=== PATIENT | female | born 1960 | race Caucasian/White ===

== ENCOUNTER 2016-08-24 05:20 | Inpatient (IN) | payer MEDICAID, OTHER ==
[~2016-08-24] VITALS: Ht 152.4 cm; Wt 64.2 kg
[~2016-08-24 05:20] MED LIST: ACET500L PO; ASPI81TA85 PO; CIPR250T3 PO; EXCETAB80 PO; HYDR-2809 PO; PARO20TA2 PO; PYRI200T5 PO; TOPA25TA10 PO; XANA0.25 PO
[2016-08-24] MEDS ORDERED: KETOROLAC 30 MG/ML VIAL (J1885) As Ordered ONE (06:42)
[2016-08-24 07:15] LABS: BASO % 0.3 % (0.0-1.0); EOS % 0.1 % (0.0-3.0); LARGE UNSTAINED CELL # 0.1 K/mm3 (0.0-0.4); LYMPH # 0.4 K/mm3 (1.5-4.5); LYMPH % 4.9 % (24.0-44.0); MEAN CORPUSCULAR HEMOGLOBIN 30.4 pg (27.0-33.0); MEAN CORPUSCULAR HGB CONC 32.4 g/dl (32.0-36.5); MEAN CORPUSCULAR VOLUME 94.1 fl (80.0-96.0); MONO # 0.5 K/mm3 (0.0-0.8); MONO % 7.1 % (0.0-5.0); NEUTROPHILS # 6.4 K/mm3 (1.8-7.7); NEUTROPHILS % 86.5 % (36.0-66.0); PLATELET COUNT, AUTOMATED 174 k/mm3 (150-450); RED CELL DISTRIBUTION WIDTH 12.6 % (11.5-14.5); WHITE BLOOD COUNT 7.4 K/mm3 (4.0-10.0)
[2016-08-24 07:26] LABS: ALBUMIN 3.5 GM/DL (3.2-5.2); ALBUMIN/GLOBULIN RATIO 1.17 (1.00-1.93); ALKALINE PHOSPHATASE 47 U/L (45-117); ALT/SGPT 26 U/L (12-78); ANION GAP 6 MEQ/L (8-16); AST/SGOT 16 U/L (15-37); BILIRUBIN,DIRECT 0.1 MG/DL (0.0-0.2); BILIRUBIN,TOTAL 0.4 MG/DL (0.2-1.0); BLOOD UREA NITROGEN 13 MG/DL (7-18); CARBON DIOXIDE LEVEL 26 MEQ/L (21-32); CHLORIDE LEVEL 108 MEQ/L (98-107); CREATININE FOR GFR 0.71 MG/DL (0.55-1.02); GLOMERULAR FILTRATION RATE > 60.0 (>51); GLUCOSE, FASTING 112 MG/DL (70-105); POTASSIUM SERUM 4.4 MEQ/L (3.5-5.1); SODIUM LEVEL 140 MEQ/L (136-145); TOTAL PROTEIN 6.5 GM/DL (6.4-8.2)
--- NOTE | 2016-08-24 08:21 | REP ---
PA and lateral chest: Comparisons 10/12/2015. The lung truong are clear. The cardiac size is normal The agnes, mediastinum, and bony thorax are unremarkable. Impression: Negative PA and lateral chest. There is no interval change. Signed by Remberto Benavides MD 08/24/2016 08:13 A
[2016-08-24] MEDS ORDERED: TOPIRAMATE (TopAMAX) 25 MG TAB PO SCH (09:00)
[2016-08-24] MEDS ORDERED: ONDANSETRON 4MG/2ML VIAL (J2405) IV PRN (09:45)
[2016-08-24] MEDS ORDERED: TYLE325T5 PO (09:58)
[2016-08-24] MEDS ORDERED: ACETAMINOPHEN 325 MG TAB As Ordered ONE (10:50)
[2016-08-24] MEDS ORDERED: ALPRAZolam 0.25 MG TAB PO PRN (11:00)
[2016-08-24] MEDS ORDERED: EXCEDRIN MIGRAINE TABLET PO PRN (11:00)
[2016-08-24 11:06] VITALS: BP 99/52
--- NOTE | 2016-08-24 11:41 | REP ---
CT Head without contrast HISTORY: Syncope COMPARISON: MR 04/19/2016 The patient is status post suboccipital craniectomy for cerebellar tonsillar ectopia. There is no intraparenchymal hemorrhage, acute infarct, mass or midline shift. The ventricular system is normal in appearance. There is no extra cerebral collection. There is no fracture. The visualized sinuses are clear. IMPRESSION: There is no intracranial lesion. Signed by Suhail Worthy MD 08/24/2016 11:33 A
--- NOTE | 2016-08-24 12:46 | HPE ---
DATE OF ADMISSION: 08/24/2016 PRIMARY CARE PROVIDER: Chris Rivers PA-C CHIEF COMPLAINT: Generalized weakness and passed out. HISTORY OF PRESENTING ILLNESS: A 56-year-old female with a history of Chiari malformation with Chiari decompression, transient ischemic attack (TIA), depression, patent foramen ovale, migraine headaches, tonsillectomy, tubal ligation. Was in her usual state of health until a week ago when she developed upper respiratory tract infection with cough, which is nonproductive. No fever or chills. The patient woke up at 4 o'clock this morning, wanted to go to the bathroom, and felt like her arms and legs were very weak, unable to stand up on her own. She leaned to the side of the bed and felt that she had no strength, unable to stand. When she returned, she had to crawl on her hands and feet. Her saw her. She felt warm. Complained of diaphoresis without chest pain, pressure, tightness, palpitations, or lightheadedness. No headaches, changes in vision aside from the chronic light sensitivity. The patient called emergency medical services (EMS). When EMS arrived, they asked them to go and get a chair from the other room. She was placed, was asked to sit up with assistance. Fingerstick was 141. Systolic pressure was over 100. At the time, she then felt woozy and passed out for about 2-3 minutes, according to the . EMS then called him back to the room, where he had a chair. They lifted her up onto a bed. She was able to recognize him. Did not appear to have any tonic-clonic movements or postictal confusion. Was able to recognize the house, her , and EMS that had lifted her to the stretcher. The patient has been suffering from upper respiratory infection with postnasal drip last week and had a cough yesterday. She had taken some Sudafed and nothing else. She had a similar episode of feeling very weak last summer when she got up in the morning and when she was in camp, which resolved without seeing a healthcare professional. The patient has been under the care of Dr. Jose Alfredo Ceballos, [place], [place], , for her Chiari malformation and had recently seen him about 2-3 weeks ago. She has chronic dysphagia to liquids but has not been dehydrated. Drinks about 7-8 cups of liquids daily. Denies any diarrhea. She has had a malodorous urine about 2 weeks ago but denies dysuria, urgency, frequency, fever, chills, or flank pain. She has had chronic photophobia. Other systems have been negative. PAST MEDICAL HISTORY: TIA. Chiari malformation. Depression. Migraine headaches. Patent foramen ovale (PFO). ALLERGIES: To SULFA causing rash. HOME MEDICATIONS: - aspirin 81 daily - paroxetine 20 daily - Topamax 25 twice a day - Xanax 0.25 three times a day - fiber capsules, two capsules twice a day PAST SURGICAL HISTORY: Chiari decompression. Tonsillectomy. Tubal ligation. SOCIAL HISTORY: Never smoked cigarettes. No alcohol use currently. On disability for Budd-Chiari syndrome. Mother and father are . Mother age 45. Father age 72. Mother with kidney cancer. Father with sinus cancer. REVIEW OF SYSTEMS: 12-point system obtained, all of which are negative aside from positive findings on history of present illness (HPI). PHYSICAL EXAMINATION: Blood pressure 97/47, pulse 84, respiratory rate 18, temperature 97.9, pulse oximetry 98% on room air, weight 58.97 kg, 5 feet 0 inches tall. Generally, awake, alert, oriented times three. Answering questions appropriately. She is wearing sunglasses and states that she has photosensitivity. Pupils are round and reactive to light and accommodation. Extraocular muscles are intact. Head normocephalic, atraumatic. Lungs are clear to auscultation. No wheezing, rales, or rhonchi. Heart: S1, S2, sinus rhythm. Abdomen: Is soft, nontender, nondistended. Positive bowel sounds. Extremities: No cyanosis, clubbing, or pitting edema. Neurologically, the patient is awake, alert, oriented times three, answering questions appropriately. Face is symmetric. Tongue is midline. No facial asymmetry. The patient is fluent. No pronator drift. Motor function is 5/5 times four extremities. Gait was not tested. Negative Babinski bilaterally. Electrocardiogram (EKG): Sinus rhythm, ventricular rate of 72, nonspecific T wave changes with T wave flattening in the lateral leads. Influenza A and B are negative. White count 7.4, hemoglobin 13, hematocrit 41, platelet count 174, 86% neutrophils. Sodium 140, potassium 4.4, chloride 108, bicarbonate 26, chloride 108, BUN 13, creatinine 0.71, glucose of 112, AST 16, ALT 26, alkaline phosphatase 47, total bilirubin 0.4, direct bilirubin 0.1, total protein 6.5, albumin 3.5, total CPK 57. Cloudy urine, yellow in color, pH of 7, negative protein, glucose, ketones, bilirubin, nitrites, negative leukocyte esterase, 3 WBCs, 1+ bacteria. Total CK 58, MB fraction of 1, relative index 1.72, troponin less than 0.02. Chest x-ray: No interval change. Negative PA and lateral chest. ASSESSMENT AND PLAN: This is a 56-year-old female with history of Chiari malformation, status post decompression, presents with generalized weakness and syncopal episodes at home, recent diagnosis of PFO managed by Dr. Brooks with recommendations for a closure by Dr. Reyes. The patient has refused. CURRENT ISSUES: 1. Syncope and collapse with bilateral upper and lower extremity weakness. The patient will be admitted for neuro checks every 4 hours. Neurology consult. MRI MRA of the brain and cervical spine and check orthostatics and monitor neurologically Continue with aspirin. Rule out cerebrovascular accident (CVA), hydrocephalus. Neurology consult Dr. Jack, and inpatient electroencephalogram. 2. Chiari malformation, status post Chiari decompression. The patient's neurologist is Jose Alfredo Ceballos, , in [place], [place]. Will inform him of the patient's admission. Neurology consult today. Physician balloon tester is Dr. Jack. 3. Patent foramen ovale with two prior TIAs. Continue with aspirin. Obtain 2D echocardiogram report from Dr. Brooks's office. Obtain records from Dr. Ceballos's office regarding hypercoagulable workup from 2 previous TIAs 4. Depression. Continue home medications. 5. Chronic migraines and photosensitivity, most likely related to Chiari malformation. Defer to neurology. 6. Deep venous thrombosis (DVT) prophylaxis. Compression stockings. On Lovenox or heparin. 7. Recent history of URI. check viral screen 8. Cloudy urine. check urinalysis and urine c&s. DVT prophylaxis w sq heparin. code status: FULL code no health care proxy. MTDD
--- NOTE | 2016-08-24 13:54 | REP ---
MR angiography the brain without contrast: History: Syncope. Status post prior Chiari decompression surgery 2003. Comparison MR angiography of the brain is from April 19, 2016. Technique: 3-D [id number] MR angiography of the brain is acquired in the usual fashion and maximal intensity projection images were generated in rotational format about the vertical and horizontal axes. In addition, source axial T1-weighted images are viewed in cine mode. MR angiographic findings: The distal vertebral arteries are patent and co-dominant. Basilar artery is a little tortuous but widely patent. The posterior cerebral and superior cerebellar vessels are normal and symmetric. The distal internal carotid arteries are unremarkable. Anterior and middle cerebral arteries appear intact. There is no visible marroquin aneurysm or arteriovenous malformation. Impression: Unremarkable MR angiography the brain. Signed by Uriah Parker MD 08/24/2016 01:45 P
--- NOTE | 2016-08-24 14:06 | EDDOCDS ---
Physician Documentation [facility] Name: Jenna Macias Age: 56 yrs Sex: Female : 1960 Arrival Date: 08/24/2016 Time: 05:20 Bed 4 Private MD: Chris Rivers R. Disposition: 08/24/16 09:34 Hospitalization ordered by Krystle Rodriguez for Inpatient Admission. Preliminary diagnosis is Syncope and collapse. - Bed requested for PCU. - Status is Inpatient Admission. ead - Condition is Stable. - Problem is new. - Symptoms are resolved. Historical: - Allergies: SULFA (SULFONAMIDES) (Rash); - Home Meds: 1. aspirin 81 mg Oral TbEC 1 tab once daily (Last dose: 08/23/2016) 2. paroxetine HCl 20 mg Oral tab 1 tab once daily (Last dose: 08/23/2016) 3. Topamax 25 mg Oral tab 1 tabs 2 times per day (Last dose: 08/23/2016) 4. Xanax 0.25 mg Oral tab 3 times per day (Last dose: Unknown) - PMHx: TIA; Chiari Malformation; Depression; Migraine Headaches; Patent foramen ovale; - PSHx: Chiari decompression; Tonsillectomy; Tubal ligation; - Social history: Smoking status: Patient states was never smoker of tobacco. Patient uses alcohol occasionally. No barriers to communication noted, The patient speaks fluent Ukrainian. - Family history: Mother has/had diabetes mellitus, Father has/had cancer, Daughter has/had seizure. - : The pt / caregiver states he / she is on anticoagulants: Home medication list is obtained from the patient. - Exposure Risk Screening:: None identified. 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 0 in. (152.40 cm) (R); Pain 0/10; 05:39 BP 97 / 44 (auto/); mv5 05:39 Pulse 74 MON; Pulse Ox 98% ; mv5 05:54 BP 94 / 50 (auto/); mv5 05:54 Pulse 74 MON; Pulse Ox 98% ; mv5 06:09 BP 89 / 54 (auto/); mv5 06:09 Pulse 72 MON; Pulse Ox 98% ; mv5 06:24 BP 83 / 54 (auto/); mv5 06:24 Pulse 78 MON; Pulse Ox 98% ; mv5 06:39 BP 92 / 53 (auto/); mv5 06:39 Pulse 74 MON; Pulse Ox 99% ; mv5 07:09 BP 99 / 58 (auto/); ead 07:09 Pulse 72 MON; Resp 16; Pulse Ox 98% on R/A; ead 07:24 BP 95 / 50 (auto/); ead 07:24 Pulse 72 MON; Pulse Ox 98% ; ead 07:54 BP 97 / 53 (auto/); ead 07:54 Pulse 72 MON; Pulse Ox 97% ; ead 08:07 Pulse 72 MON; Resp 16; Pulse Ox 97% on R/A; ead 08:09 BP 91 / 53 (auto/); ead 08:24 BP 94 / 53 (auto/); ead 08:24 Pulse 76 MON; Pulse Ox 96% on R/A; ead 08:39 Pulse 74 MON; Pulse Ox 95% ; ead 08:39 BP 95 / 51 (auto/); ead 08:54 BP 99 / 58 (auto/); ead 08:54 Pulse 72 MON; Pulse Ox 97% ; ead 09:09 BP 94 / 53 (auto/); ead 09:09 Pulse 78 MON; Pulse Ox 96% ; ead 09:24 BP 89 / 51 (auto/); ead 09:24 Pulse 74 MON; Pulse Ox 95% ; ead 09:39 BP 93 / 50 (auto/); ead 09:39 Pulse 76 MON; Pulse Ox 96% ; ead 09:54 BP 92 / 55 (auto/); ead 09:54 Pulse 78 MON; Pulse Ox 96% ; ead 10:24 BP 104 / 53 (auto/); ead 10:24 Pulse 82 MON; Pulse Ox 96% ; ead 10:39 BP 100 / 49; Pulse 76 MON; Resp 16; Temp 97.9; Pulse Ox 95% on R/A; ead 10:39 BP 100 / 49 (auto/); ead 10:40 Pulse 78 MON; Pulse Ox 96% ; ead 10:54 BP 99 / 52 (auto/); ead 10:54 Pulse 74 MON; Resp 16; Pulse Ox 96% on R/A; ead 13:56 BP 90 / 53; Pulse 69; Resp 18; Temp 98.3(T); Pulse Ox 98% on R/A; ad 05:26 Body Mass Index 25.39 (58.97 kg, 152.40 cm) jovi MDM: 06:37 IV Saline Lock ordered. cs11 06:37 NS 0.9% 1000 ml IV at bolus once ordered. cs11 06:37 ketorolac 30 mg IVP once ordered. cs11 06:38 Chest, 2 View (pa\E\lat) Ordered. EDMS 06:38 CBC with Diff Ordered. EDMS 06:38 MED Profile Ordered. EDMS 06:38 Liver Profile Ordered. EDMS 06:38 Creatine Phosphokinase Ordered. EDMS 06:38 Urinalysis Ordered. EDMS 06:38 -Influenza A&B Rapid Antigen - Nose Ordered. EDMS 06:38 Urine Culture Ordered. EDMS 07:07 Financial registration complete. pm4 07:35 CBC with Diff Reviewed. sd1 07:35 MED Profile Reviewed. sd1 07:35 -Influenza A&B Rapid Antigen - Nose Reviewed. sd1 07:35 Liver Profile Reviewed. sd1 07:35 Creatine Phosphokinase Reviewed. sd1 07:35 Fluid Challenge ordered. sd1 07:40 REGULAR+DIET ordered. EDMS 08:14 Urinalysis Reviewed. sd1 08:32 CIP Ordered. EDMS 08:32 Troponin Ordered. EDMS 08:32 ECG WITH READING ER PHYS+CARDIAG ordered. EDMS 09:02 CIP Reviewed. sd1 09:02 Troponin Reviewed. sd1 09:02 Chest, 2 View (pa\E\lat) Reviewed. sd1 09:30 BED REQUEST+ADM ordered. EDMS 09:39 CARDIAC MARKER PANEL Ordered. EDMS 09:39 CARDIAC MARKER PANEL Ordered. EDMS 09:39 URINALYSIS Ordered. EDMS 09:39 URINE CULTURE Ordered. EDMS 09:41 Admission / Observation Status ordered. EDMS 09:41 ECHOCARD,DOPPLER/COLOR FLOW ordered. EDMS 09:41 ELECTROCARDIOGRAM ADULT ordered. EDMS 09:41 ELECTROCARDIOGRAM ADULT ordered. EDMS 09:41 NO ADDED SALT DIET ordered. EDMS 10:20 [facility] [facility] [place] was scanned into [employer] and attached to record. mm15 10:49 Acetaminophen Tablet 650 mg PO once; Admission order by Dr. Rodriguez ordered. ead 10:51 CT Head without contrast Ordered. EDMS 11:41 MRA BRAIN W/O CONTRAST Ordered. EDMS 11:41 MRI Brain W/O FOLL BY WITH Ordered. EDMS 11:41 MRI-C SPINE W/O FOLL BY WITH Ordered. EDMS Administered Medications: 06:53 Drug: NS 0.9% 1000 ml [sodium chloride 0.9 % intravenous solution] Route: IV; Rate: mv5 bolus; Site: left hand; 06:53 Drug: ketorolac 30 mg [ketorolac 30 mg/mL (1 mL) injection solution (1 mL)] Route: IVP; mv5 Site: left hand; 10:51 Drug: Acetaminophen 650 mg [acetaminophen 325 mg tablet (2 tabs)] Route: PO; ead Signatures: Dispatcher [employer] EDMS Aubrie Lr MD MD sd1 Vidya Edouard, RN RN Juan John DO DO cs11 Astrid Quan mm15 Tracey Nguyen RN RN Gela Cisneros RN RN lmg Oscar Fisher, Reg Reg pm4 Deedee Marti,RN RN mv5 The chart was reviewed and I authenticate all verbal orders and agree with the evaluation and treatment provided.Corrections: (The following items were deleted from the chart) 11:40 10:50 MRA BRAIN WITH CONTRAST ordered. EDMS EDMS 11:41 11:22 MRI Spine, Cervical with con ordered. EDMS EDMS 11:42 09:39 MRI Brain W/CON ordered. EDMS EDMS Attachments: 10:20 [facility] Payment Agreement mm15 MTDD
--- NOTE | 2016-08-24 14:06 | EDDOCDS ---
Nurse's Notes [facility] Name: Jenna Mcaias Age: 56 yrs Sex: Female : 1960 Arrival Date: 08/24/2016 Time: 05:20 Bed 4 Private MD: Chris Rivers R. Diagnosis: Syncope and collapse Presentation: 08/24 05:23 Presenting complaint: EMS states: Pt to ED by EMS for evaluation after syncopal episode mv5 in presence of EMS. FSBG 141 mg/dL by EMS, given small NS bolus VIDEO TAPE DUPLICATOR. Pt reports URI symptoms last week, denies N/V/D. Took Sudafed for sinus congestion last evening. Adult Sepsis Screening: The patient does not have new or worsening altered mentation. Patient's respiratory rate is less than 22. Systolic blood pressure is greater than 100. Patient has a qSOFA score of 0- Negative Sepsis Screen. Suicide/Homicide risk assessment- the patient denies having any suicidal and/or homicidal ideations and does not present with any other emotional, behavioral or mental health complaints. Status: Patient is not a it service technician or dependent. Transition of care: patient was not received from another setting of care. Care prior to arrival: Medications administered prior to arrival: NS 250 ml bolus. IV initiated. Glucose check. 141. 05:23 Acuity: KODY Level 3 mv5 05:23 Method Of Arrival: Ambulance mv5 Triage Assessment: 05:32 General: Appears uncomfortable, well nourished, Behavior is appropriate for age, mv5 cooperative, pleasant. Pain: Denies pain. Pt Declines HIV testing. The patient is triaged at the bedside. See Assessment in Nurses Notes section of ED record. Neurological: Level of Consciousness is awake, alert, Oriented to person, place, time. Cardiovascular: Capillary refill < 3 seconds Heart tones S1 S2 present Pulses are all present. Rhythm is sinus rhythm No ectopy. Chest pain is denied. Respiratory: Airway is patent Respiratory effort is even, Respiratory pattern is regular, symmetrical, Breath sounds are clear bilaterally. GI: Abdomen is flat, Bowel sounds present X 4 quads. Abd is soft. Derm: Skin is clammy, Skin is pink, Skin temperature is warm. WIRE COATER: 05:32 LMP N/A - Post-menopause mv5 Historical: - Allergies: SULFA (SULFONAMIDES) (Rash); - Home Meds: 1. aspirin 81 mg Oral TbEC 1 tab once daily (Last dose: 08/23/2016) 2. paroxetine HCl 20 mg Oral tab 1 tab once daily (Last dose: 08/23/2016) 3. Topamax 25 mg Oral tab 1 tabs 2 times per day (Last dose: 08/23/2016) 4. Xanax 0.25 mg Oral tab 3 times per day (Last dose: Unknown) - PMHx: TIA; Chiari Malformation; Depression; Migraine Headaches; Patent foramen ovale; - PSHx: Chiari decompression; Tonsillectomy; Tubal ligation; - Social history: Smoking status: Patient states was never smoker of tobacco. Patient uses alcohol occasionally. No barriers to communication noted, The patient speaks fluent Greenlandic. - Family history: Mother has/had diabetes mellitus, Father has/had cancer, Daughter has/had seizure. - : The pt / caregiver states he / she is on anticoagulants: Home medication list is obtained from the patient. - Exposure Risk Screening:: None identified. Screenin:36 Screening information is obtained from the patient. Fall risk: No risks identified. mv5 Assistance ADL's: requires no assistance with activities of daily living. Abuse/DV Screen: The patient / caregiver reports he/she is: not in a situation that causes fear, pain or injury. Nutritional screening: No deficits noted. Advance Directives: There is no active DNR order. home support is adequate. Assessment: 05:36 General: See triage assessment.. Neurological: Level of Consciousness is awake, alert, mv5 Oriented to person, place, time. Cardiovascular: Capillary refill < 3 seconds Heart tones S1 S2 present Pulses are all present. Rhythm is sinus rhythm No ectopy. 06:44 General: Appears in no apparent distress, MD in to evaluate pt.. Neurological: Level of mv5 Consciousness is awake, alert, Oriented to person, place, time. Cardiovascular: Rhythm is sinus rhythm No ectopy. Derm: Skin is pink, warm & dry. 07:13 General: Appears in no apparent distress, pt wearing sunglasses's and covering face ead with blanket. pt reports the light bothers her. curtains drawn and lights are off. family is at bedside. pt denies need to void for UA at this time. call blel within reach. . Cardiovascular: Rhythm is sinus rhythm No ectopy. Respiratory: Airway is patent Respiratory effort is even, unlabored. Derm: Skin is pink, warm & dry. 07:49 General: pt ambulated to bathroom for UA without difficulty. returned to room and will ead continue to monitor. . Respiratory: Respiratory effort is even, unlabored. Derm: Skin is pink, warm & dry. 08:34 Adult Sepsis Screening: The patient does not have new or worsening altered mentation. ead Patient's respiratory rate is less than 22. Systolic blood pressure is greater than 100. Patient has a qSOFA score of 0- Negative Sepsis Screen. General: Appears in no apparent distress, comfortable, Behavior is appropriate for age, cooperative. Neurological: Level of Consciousness is awake, alert, obeys commands, Oriented to person, place, time, pt continues to keep sunglasses' on and lights off. maintains at bedside. . Cardiovascular: Rhythm is sinus rhythm. Respiratory: Respiratory effort is even, unlabored. 09:49 General: Appears in no apparent distress, to be sleeping. Cardiovascular: Rhythm is ead sinus rhythm No ectopy. Respiratory: No deficits noted. 10:11 General: Dr. Rodriguez at bedside to assess pt. . Cardiovascular: Rhythm is sinus ead rhythm. Respiratory: Airway is patent Respiratory effort is even, unlabored. Derm: Skin is pink, warm & dry. 10:53 General: pt informed admission nurse of headache of 10/25. pt medicated with Tylenol as ead ordered by Dr. Rodriguez with written order. pt updated of admission plan and bed status. room 3221 currently not clean. will take pt to floor upon room being ready for pt. . 10:58 General: SBAR faxed and tubed to PCU. ead 11:40 General: Appears in no apparent distress, comfortable, Behavior is appropriate for age, ead cooperative, PCU confirms SBAR is received, states room 3221 currently not cleaned. Requesting pt to go to MRI prior to coming to floor. This nurse spoke with MRI and they report unsure of what time pt will be called but to keep pt in ER. Pt provided with screening tool for MRI and updated on current plan. . Cardiovascular: Rhythm is sinus rhythm No ectopy. Respiratory: Airway is patent Respiratory effort is even, unlabored. Derm: Skin is pink, warm & dry. 12:04 General: MRI ready for pt. Pt to MRI via stretcher per ED CONSTRUCTION TECHNOLOGY INSTRUCTOR. . ead 13:03 General: pt still in MRI. will move pt to PCU when pt is returned.. ead 13:44 General: pt returned from MRI. ead 13:53 General: Appears in no apparent distress, comfortable, Behavior is appropriate for age, ead cooperative. Neurological: Level of Consciousness is awake, alert, obeys commands, Oriented to person, place, time. Cardiovascular: Rhythm is sinus rhythm. Respiratory: Airway is patent Respiratory effort is even, unlabored. Derm: Skin is pink, warm & dry. Vital Signs: 05:26 BP 97 / 47; Pulse 84; Resp 18; Temp 97.9(TE); Weight 58.97 kg (R); Height 5 ft. 0 in. jovi (152.40 cm) (R); Pain 0/10; 05:39 BP 97 / 44 (auto/); mv5 05:39 Pulse 74 MON; Pulse Ox 98% ; mv5 05:54 BP 94 / 50 (auto/); mv5 05:54 Pulse 74 MON; Pulse Ox 98% ; mv5 06:09 BP 89 / 54 (auto/); mv5 06:09 Pulse 72 MON; Pulse Ox 98% ; mv5 06:24 BP 83 / 54 (auto/); mv5 06:24 Pulse 78 MON; Pulse Ox 98% ; mv5 06:39 BP 92 / 53 (auto/); mv5 06:39 Pulse 74 MON; Pulse Ox 99% ; mv5 07:09 BP 99 / 58 (auto/); ead 07:09 Pulse 72 MON; Resp 16; Pulse Ox 98% on R/A; ead 07:24 BP 95 / 50 (auto/); ead 07:24 Pulse 72 MON; Pulse Ox 98% ; ead 07:54 BP 97 / 53 (auto/); ead 07:54 Pulse 72 MON; Pulse Ox 97% ; ead 08:07 Pulse 72 MON; Resp 16; Pulse Ox 97% on R/A; ead 08:09 BP 91 / 53 (auto/); ead 08:24 BP 94 / 53 (auto/); ead 08:24 Pulse 76 MON; Pulse Ox 96% on R/A; ead 08:39 Pulse 74 MON; Pulse Ox 95% ; ead 08:39 BP 95 / 51 (auto/); ead 08:54 BP 99 / 58 (auto/); ead 08:54 Pulse 72 MON; Pulse Ox 97% ; ead 09:09 BP 94 / 53 (auto/); ead 09:09 Pulse 78 MON; Pulse Ox 96% ; ead 09:24 BP 89 / 51 (auto/); ead 09:24 Pulse 74 MON; Pulse Ox 95% ; ead 09:39 BP 93 / 50 (auto/); ead 09:39 Pulse 76 MON; Pulse Ox 96% ; ead 09:54 BP 92 / 55 (auto/); ead 09:54 Pulse 78 MON; Pulse Ox 96% ; ead 10:24 BP 104 / 53 (auto/); ead 10:24 Pulse 82 MON; Pulse Ox 96% ; ead 10:39 BP 100 / 49; Pulse 76 MON; Resp 16; Temp 97.9; Pulse Ox 95% on R/A; ead 10:39 BP 100 / 49 (auto/); ead 10:40 Pulse 78 MON; Pulse Ox 96% ; ead 10:54 BP 99 / 52 (auto/); ead 10:54 Pulse 74 MON; Resp 16; Pulse Ox 96% on R/A; ead 13:56 BP 90 / 53; Pulse 69; Resp 18; Temp 98.3(T); Pulse Ox 98% on R/A; ad 05:26 Body Mass Index 25.39 (58.97 kg, 152.40 cm) jovi Vitals: 05:32 Glucose Measurement D-stick in Triage- Hyperglycemia. Log In Time N/A - ambulance mv5 arrival. ED Course: 05:21 Patient visited by Christoph Martinez PCA. mdr 05:21 Chris Rivers is Private Physician. mdr 05:21 Deedee Marti,RN is Primary Nurse. mdr 05:21 Patient moved to Waiting mdr 05:21 Patient moved to 4 mdr 05:26 Patient visited by Ramila Green PCA. jovi 05:26 Pt greeted and oriented to ED. Patient advised of names of staff involved in care, jovi location of call , wait times and NPO status. Patient has correct armband on for positive identification. Placed in gown. Bed in low position. Call light in reach. Side rails up X2. telemetry monitor on. Pulse ox on. NIBP on. 05:28 Triage Initiated mv5 05:36 The patient / caregiver is instructed regarding the plan of care and ED course. mv5 05:36 IV is patent, is intact. mv5 06:15 Juan Zeng DO is Attending Physician. cs11 06:15 Patient visited by Juan Zeng DO. cs11 06:15 Patient visited by Juan Zeng DO. cs11 06:43 Patient moved to Radiology dorothea 06:53 -Influenza A&B Rapid Antigen - Nose Sent. mv5 06:53 Creatine Phosphokinase Sent. mv5 06:53 Liver Profile Sent. mv5 06:54 Attending Physician role handed off by Juan Zeng DO sd1 06:54 Aubrie Lr MD is Attending Physician. sd1 06:54 MED Profile Sent. mv5 06:54 CBC with Diff Sent. mv5 07:00 Report received from Deedee Erwin RN. ead 07:07 Tracey Nguyen RN is Primary Nurse. ead 07:34 Patient visited by Tracey Nguyen RN. ead 07:34 Patient moved to 4 ead 07:49 Urinalysis Sent. ead 07:49 Urine Culture Sent. ead 08:33 Patient visited by Tracey Nguyen RN. ead 08:33 Troponin Sent. ead 08:33 CIP Sent. ead 08:45 EKG done. (by ED staff). Reviewed by Aubrie Lr MD. ct3 08:55 Chest, 2 View (pa\E\lat) Returned. EDMS 08:59 Patient visited by Rafaela Woodard PCA. ct3 08:59 Diet: Patient given regular meal. ct3 09:34 Krystle Rodriguez is Hospitalizing Provider. sd1 10:20 [facility] [place] was scanned into [employer] and attached to record. mm15 11:19 Primary Nurse role handed off by Deedee Marti RN mcp 11:42 CT Head without contrast Returned. EDMS 13:14 No procedures done that require assistance. ead 13:15 Patient visited by Radha Valdes. ad 13:15 Diet tray given. ad 13:57 Patient visited by Radha Valdes. ad 13:59 MRA BRAIN W/O CONTRAST Returned. EDMS Administered Medications: 06:53 Drug: NS 0.9% 1000 ml [sodium chloride 0.9 % intravenous solution] Route: IV; Rate: mv5 bolus; Site: left hand; 06:53 Drug: ketorolac 30 mg [ketorolac 30 mg/mL (1 mL) injection solution (1 mL)] Route: IVP; mv5 Site: left hand; 10:51 Drug: Acetaminophen 650 mg [acetaminophen 325 mg tablet (2 tabs)] Route: PO; ead Order Results: Lab Order: -Influenza A&B Rapid Antigen - Nose; SPEC'M 08/24/16 06:55 Test: INFLUENZA A RAPID SCR by ICA; Value: INFLUENZA A RESULTS NEGATIVE; Status: F Test: INFLUENZA A RAPID SCR by ICA; Value: Comments:; Status: F Test: INFLUENZA B RAPID SCR by ICA; Value: INFLUENZA B RESULTS NEGATIVE; Status: F Test Note: ; The Influenza test is a direct rapid immunoassay for the qualitative detection of Influenza viral antigen. Cell culture (Viral Culture) testing should be considered to confirm NEGATIVE results and to assist in detecting other viruses that can provide similar clinical symptoms. Please contact the lab within 24 hours ([phone]) if confirmatory testing is desired. Lab Order: CBC with Diff; SPEC'M 08/24/16 06:55 Test: WHITE BLOOD COUNT; Value: 7.4; Range: 4.0-10.0; Units: K/mm3; Status: F Test: RED BLOOD COUNT; Value: 4.42; Range: 4.00-5.40; Units: M/mm3; Status: F Test: HEMOGLOBIN; Value: 13.4; Range: 12.0-16.0; Units: g/dl; Status: F Test: HEMATOCRIT; Value: 41.6; Range: 36.0-47.0; Units: %; Status: F Test: MEAN CORPUSCULAR VOLUME; Value: 94.1; Range: 80.0-96.0; Units: fl; Status: F Test: MEAN CORPUSCULAR HEMOGLOBIN; Value: 30.4; Range: 27.0-33.0; Units: pg; Status: F Test: MEAN CORPUSCULAR HGB CONC; Value: 32.4; Range: 32.0-36.5; Units: g/dl; Status: F Test: RED CELL DISTRIBUTION WIDTH; Value: 12.6; Range: 11.5-14.5; Units: %; Status: F Test: PLATELET COUNT, AUTOMATED; Value: 174; Range: 150-450; Units: k/mm3; Status: F Test: NEUTROPHILS %; Value: 86.5; Range: 36.0-66.0; Abnormal: Above high normal; Units: %; Status: F Test: LYMPH %; Value: 4.9; Range: 24.0-44.0; Abnormal: Below low normal; Units: %; Status: F Test: MONO %; Value: 7.1; Range: 0.0-5.0; Abnormal: Above high normal; Units: %; Status: F Test: EOS %; Value: 0.1; Range: 0.0-3.0; Units: %; Status: F Test: BASO %; Value: 0.3; Range: 0.0-1.0; Units: %; Status: F Test: LARGE UNSTAINED CELL %; Value: 1.0; Range: 0.0-4.0; Units: %; Status: F Test: NEUTROPHILS #; Value: 6.4; Range: 1.8-7.7; Units: K/mm3; Status: F Test: LYMPH #; Value: 0.4; Range: 1.5-4.5; Abnormal: Below low normal; Units: K/mm3; Status: F Test: MONO #; Value: 0.5; Range: 0.0-0.8; Units: K/mm3; Status: F Test: EOS #; Value: 0.0; Range: 0.0-0.50; Units: K/mm3; Status: F Test: BASO #; Value: 0.0; Range: 0.0-0.2; Units: K/mm3; Status: F Test: LARGE UNSTAINED CELL #; Value: 0.1; Range: 0.0-0.4; Units: K/mm3; Status: F Lab Order: MED Profile; SPEC'M 08/24/16 06:55 Test: GLUCOSE, FASTING; Value: 112; Range: 70-105; Abnormal: Above high normal; Units: MG/DL; Status: F Test: BLOOD UREA NITROGEN; Value: 13; Range: 7-18; Units: MG/DL; Status: F Test: CREATININE FOR GFR; Value: 0.71; Range: 0.55-1.02; Units: MG/DL; Status: F Test: GLOMERULAR FILTRATION RATE; Value: > 60.0; Range: >51; Status: F Test: SODIUM LEVEL; Value: 140; Range: 136-145; Units: MEQ/L; Status: F Test: POTASSIUM SERUM; Value: 4.4; Range: 3.5-5.1; Units: MEQ/L; Status: F Test: CHLORIDE LEVEL; Value: 108; Range: 98-107; Abnormal: Above high normal; Units: MEQ/L; Status: F Test: CARBON DIOXIDE LEVEL; Value: 26; Range: 21-32; Units: MEQ/L; Status: F Test: ANION GAP; Value: 6; Range: 8-16; Abnormal: Below low normal; Units: MEQ/L; Status: F Test: CALCIUM LEVEL; Value: 8.0; Range: 8.5-10.1; Abnormal: Below low normal; Units: MG/DL; Status: F Test Note: ; Units are mL/min/1.73 m2 Chronic Kidney Disease Staging per NKF: Stage I & II GFR >=60 Normal to Mildly Decreased Stage III GFR 30-59 Moderately Decreased Stage IV GFR 15-29 Severely Decreased Stage V GFR <15 Very Little GFR Left ESRD GFR <15 on GEEK SQUAD MANAGER Lab Order: Liver Profile; [facility] 08/24/16 06:55 Test: AST/SGOT; Value: 16; Range: 15-37; Units: U/L; Status: F Test: ALT/SGPT; Value: 26; Range: 12-78; Units: U/L; Status: F Test: ALKALINE PHOSPHATASE; Value: 47; Range: 45-117; Units: U/L; Status: F Test: BILIRUBIN,TOTAL; Value: 0.4; Range: 0.2-1.0; Units: MG/DL; Status: F Test: BILIRUBIN,DIRECT; Value: 0.1; Range: 0.0-0.2; Units: MG/DL; Status: F Test: TOTAL PROTEIN; Value: 6.5; Range: 6.4-8.2; Units: GM/DL; Status: F Test: ALBUMIN; Value: 3.5; Range: 3.2-5.2; Units: GM/DL; Status: F Test: ALBUMIN/GLOBULIN RATIO; Value: 1.17; Range: 1.00-1.93; Status: F Lab Order: Creatine Phosphokinase; SPEC'M 08/24/16 06:55 Test: CPK CREATINE PHOSPHOKINASE; Value: 57; Range: 26-192; Units: U/L; Status: F Lab Order: Urinalysis; SPEC'M 08/24/16 06:56 Test: APPEARANCE, URINE; Value: CLOUDY; Range: CLEAR; Abnormal: Above high normal; Status: F Test: COLOR, URINE; Value: YELLOW; Range: YELLOW; Status: F Test: PH,URINE; Value: 7.0; Range: 5.0-9.0; Units: UNITS; Status: F Test: SPECIFIC GRAVITY URINE AUTO; Value: 1.013; Range: 1.002-1.035; Status: F Test: PROTEIN, URINE AUTO; Value: NEGATIVE; Range: NEGATIVE; Units: mg/dL; Status: F Test: GLUCOSE, URINE (UA) AUTO; Value: NEGATIVE; Range: NEGATIVE; Units: mg/dL; Status: F Test: KETONE, URINE AUTO; Value: NEGATIVE; Range: NEGATIVE; Units: mg/dL; Status: F Test: UROBILINOGEN, URINE AUTO; Value: 0.2; Range: 0.0-2.0; Units: mg/dL; Status: F Test: BILIRUBIN, URINE AUTO; Value: NEGATIVE; Range: NEGATIVE; Status: F Test: NITRITE, URINE AUTO; Value: NEGATIVE; Range: NEGATIVE; Status: F Test: LEUKOCYTE ESTERASE, URINE AUTO; Value: NEGATIVE; Range: NEGATIVE; Status: F Test: BLOOD, URINE BLOOD; Value: NEGATIVE; Range: NEGATIVE; Status: F Test: WBC, URINE AUTO; Value: 3; Range: 0-3; Units: /HPF; Status: F Test: RBC, URINE AUTO; Value: 4; Range: 0-3; Abnormal: Above high normal; Units: /HPF; Status: F Test: BACTERIA, URINE AUTO; Value: 1+; Range: NEGATIVE; Abnormal: Above high normal; Status: F Test: SQUAMOUS EPITHELIAL CELL UR AU; Value: 7; Range: 0-6; Units: /HPF; Status: F Test: MUCUS, URINE; Value: SMALL; Range: NEGATIVE; Status: F Test: HYALINE CAST, URINE AUTO; Value: 1; Range: 0-1; Units: /LPF; Status: F Lab Order: CIP; [facility] 08/24/16 06:55 Test: CPK CREATINE PHOSPHOKINASE; Value: 58; Range: 26-192; Units: U/L; Status: F Test: CK-MB VALUE MASS; Value: 1.0; Range: 0.0-3.6; Units: NG/ML; Status: F Test: MB/CK RELATIVE INDEX; Value: 1.72; Range: < OR =4; Status: F Test Note: ; DIAGNOSIS CRITERIA MMB ng/ml Relative Index (RI) NON-AMI < or = 5 N/A ORTEGA ZONE > 5 < or = 4 AMI > 5 > 4 Lab Order: Troponin; [facility] 08/24/16 06:55 Test: TROPONIN I; Value: < 0.02; Range: < 0.10; Units: NG/ML; Status: F Test Note: ; Troponin I Reference Interval for [employer] LOCI: 99th Percentile= 0.00-0.045 ng/ml Risk Stratification: <= 0.10 ng/ml Decreased Risk for Adverse Clinical Events. 0.10-1.50 ng/ml Increased Risk for Adverse Clinical Events. Evaluation of additional criterion and/or repeat testing in 2-6 hours is suggested to rule out myocardial damage. >= 1.50 ng/ml Indicative of Myocardial Injury. Lab Order: CARDIAC MARKER PANEL; [facility] 08/24/16 12:10 Test: CPK CREATINE PHOSPHOKINASE; Value: 54; Range: 26-192; Units: U/L; Status: F Test: CK-MB VALUE MASS; Value: 1.0; Range: 0.0-3.6; Units: NG/ML; Status: F Test: MB/CK RELATIVE INDEX; Value: 1.85; Range: < OR =4; Status: F Test: TROPONIN I; Value: < 0.02; Range: < 0.10; Units: NG/ML; Status: F Test Note: ; DIAGNOSIS CRITERIA MMB ng/ml Relative Index (RI) NON-AMI < or = 5 N/A ORTEGA ZONE > 5 < or = 4 AMI > 5 > 4 Radiology Order: Chest, 2 View (pa\E\lat) Test: Chest, 2 View (pa\E\lat) REASON FOR EXAMINATION: Cough; PA and lateral chest:; ; Comparisons 10/12/2015.; ; The lung truong are clear. The cardiac size is normal; ; The agnes, mediastinum, and bony thorax are unremarkable.; ; Impression:; ; Negative PA and lateral chest. There is no interval change.; ; ; Signed by; Remberto Benavides MD 08/24/2016 08:13 A; Radiology Order: CT Head without contrast Test: CT Head without contrast REASON FOR EXAMINATION: syncope ; CT Head without contrast; ; HISTORY: Syncope; ; COMPARISON: MR 04/19/2016; ; The patient is status post suboccipital craniectomy for cerebellar tonsillar; ectopia. There is no intraparenchymal hemorrhage, acute infarct, mass or; midline shift. The ventricular system is normal in appearance. There is no; extra cerebral collection. There is no fracture. The visualized sinuses are; clear.; ; IMPRESSION: There is no intracranial lesion.; ; ; ; ; Signed by; Suhail Worthy MD 08/24/2016 11:33 A; Radiology Order: MRA BRAIN W/O CONTRAST Test: MRA BRAIN W/O CONTRAST REASON FOR EXAMINATION: chiari malformation syncope ; MR angiography the brain without contrast:; ; History: Syncope. Status post prior Chiari decompression surgery 2003.; Comparison MR angiography of the brain is from April 19, 2016.; ; Technique: 3-D [id number] MR angiography of the brain is acquired in the; usual fashion and maximal intensity projection images were generated in; rotational format about the vertical and horizontal axes. In addition, source; axial T1-weighted images are viewed in cine mode.; ; MR angiographic findings: The distal vertebral arteries are patent and; co-dominant. Basilar artery is a little tortuous but widely patent. The; posterior cerebral and superior cerebellar vessels are normal and symmetric. The; distal internal carotid arteries are unremarkable. Anterior and middle cerebral; arteries appear intact. There is no visible marroquin aneurysm or arteriovenous; malformation.; ; Impression:; ; Unremarkable MR angiography the brain.; ; ; Signed by; Uriah Parker MD 08/24/2016 01:45 P; Outcome: 09:34 Decision to Hospitalize by Provider. sd1 10:54 Discharge Assessment: patient administered narcotics - no. ead 13:14 CT Study completed. MRI Study completed. ead 13:54 The following High Risk Discharge criteria are identified: None. Admitted to PCU ead accompanied by nurse, accompanied by tech, family with patient, via stretcher, on monitor, with chart. Condition: stable. Property :Personal belongings accompany Pt. 14:04 Patient left the ED. ead Signatures: Dispatcher [employer] EDMS Aubrie Lr MD MD sd1 Nella Whitley, RN RN Stoney Urrutia Ann ad Ewald, Destiny, CONSTRUCTION TECHNOLOGY INSTRUCTOR CONSTRUCTION TECHNOLOGY INSTRUCTOR jovi Woodard, Rafaela, CONSTRUCTION TECHNOLOGY INSTRUCTOR CONSTRUCTION TECHNOLOGY INSTRUCTOR ct3 Juan Zeng, DO cs11 Astrid Quan mm15 Tracey Nguyen,RN RN ead hCristoph Martinez, CONSTRUCTION TECHNOLOGY INSTRUCTOR CONSTRUCTION TECHNOLOGY INSTRUCTOR mdr Deedee Marti,TOSHA RN mv5 Corrections: (The following items were deleted from the chart) 11:58 10:11 General: Dr. Nieves at bedside to assess pt. . ead ead 13:14 10:54 No special radiology studies were completed ead ead MTDD
[2016-08-24] MEDS: FIBER-CON 625 MG TAB PO SCH ×2 (14:41→21:32)
[2016-08-24] MEDS: HEPARIN SOD (PORCINE) 5000 UNITS/ML VIAL SC SCH ×2 (14:41→21:32)
[2016-08-24] MEDS: SENOKOT S TAB PO SCH ×2 (14:42→21:32)
[2016-08-24] MEDS: ASPIRIN 81 MG ENTERIC TAB PO SCH (14:42)
[2016-08-24] MEDS: NS 1,000 ML IV SCH ×2 (14:42→19:45)
--- NOTE | 2016-08-24 15:17 | REP ---
MR BRAIN WITHOUT AND WITH CONTRAST: HISTORY: TIA. CONTRAST: ProHance 11.8 mL. COMPARISON: 04/19/2016. Areas of increased signal intensity on T2-weighted images are present in the subcortical white matter. This represents small vessel ischemic disease. There is no intraparenchymal hemorrhage, infarct, mass, or midline shift. There is abnormal enhancement. The ventricular system is normal in appearance. There is no extracerebral collection. The patient is status post suboccipital craniectomy for cerebellar tonsillar ectopia. Minimal mucosal thickening is present in the left mastoid air cells. IMPRESSION: 1. Small vessel ischemic disease. 2. The patient is status post suboccipital craniectomy for cerebellar tonsillar ectopia. Signed by Suhail Worthy MD 08/24/2016 03:32 P
--- NOTE | 2016-08-24 15:19 | REP ---
MRI CERVICAL SPINE WITHOUT AND WITH CONTRAST: HISTORY: Bilateral weakness. Contrast: ProHance, 11.8 mL. COMPARISON: 02/03/2016. A disc bulge is present at the C3-4 level. There is minimal effacement of the thecal sac without spinal cord compression. The C3 neural foramina are patent. A disc bulge is present at the C4-5 level. There is minimal effacement of the thecal sac without spinal cord compression. The C4 neural foramina are patent. A disc bulge with associated osteophyte formation is present at the C5-6 level. There is mild effacement of the thecal sac without spinal cord compression. Bilateral uncinate process hypertrophy is present. This produces minimal and mild narrowing of the right and left C5 neural foramina respectively. There is no other disc bulge or herniation. The remaining neural foramina are patent. The spinal cord is normal in signal intensity. There is no syrinx. There is no intradural extramedullary lesion. The C5-6 intervertebral disc is decreased in height consistent with disc degeneration. Normal signal intensity is present in the cervical vertebral bodies. The patient is status post suboccipital craniectomy for cerebellar tonsillar ectopia. IMPRESSION: 1. There is cervical spondylosis at the C3-4 through C6-7 levels without spinal cord compression. 2. The patient is status post suboccipital craniectomy for cerebellar tonsillar ectopia. There is no significant change compared to the previous study. Signed by Suhail Worthy MD 08/24/2016 03:32 P
[2016-08-24 16:00] VITALS: BP 109/53
[2016-08-24 16:05] VITALS: BP 101/54
[2016-08-24 16:10] VITALS: BP 98/51
--- NOTE | 2016-08-24 16:18 | ECGEPIP ---
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
[2016-08-24 20:00] VITALS: BP_SYST 122; BP_SYST 126; BP_SYST 127; BP_DIAS 61; BP_DIAS 64; BP_DIAS 68
[2016-08-24] MEDS ORDERED: NON-FORMULARY 1 EA EA PO SCH (21:00)
[2016-08-24] MEDS ORDERED: PARoxetine 20 MG TAB PO SCH (21:00)
[2016-08-24] MEDS ORDERED: NORTRIPTYLINE 25 MG CAP PO SCH (21:00)
[2016-08-24] MEDS: ACETAMINOPHEN TAB 650MG DOSE (2X325MG) PO PRN (23:26)
[2016-08-24 23:59] VITALS: BP_SYST 104; BP_SYST 115; BP_SYST 121; BP_SYST 139; BP_DIAS 56; BP_DIAS 65; BP_DIAS 67; BP_DIAS 71
[2016-08-25 04:00] VITALS: BP_SYST 106; BP_SYST 119; BP_SYST 121; BP_DIAS 58; BP_DIAS 61; BP_DIAS 68
--- NOTE | 2016-08-25 04:47 | ECGEPIP ---
Stationary ECG Study [facility] Test Date: 2016-08-24 Pat Name: SHAHZAD ACOSTA Department: Room: [place] [address] Gender: F District Wire Chief: CARIE : 1960 Requested By: SANTANA Freeman Order Number: [id number] Reading MD: Alma Figueroa Measurements Intervals [place] Rate: 69 P: 53 ME: 164 QRS: 49 QRSD: 86 T: 56 QT: 396 QTc: 427 Interpretive Statements SINUS RHYTHM NONSPECIFIC T-WAVE ABNORMALITY STABLE C/W 08/24/16 Electronically Signed On 08-25-2016 4:46:38 EST by Alma Figueroa
[2016-08-25] MEDS: HEPARIN SOD (PORCINE) 5000 UNITS/ML VIAL SC SCH (05:15)
[2016-08-25] MEDS: NS 1,000 ML IV SCH (05:15)
[2016-08-25 05:46] LABS: BASO % 0.3 % (0.0-1.0); EOS % 0.8 % (0.0-3.0); LARGE UNSTAINED CELL # 0.1 K/mm3 (0.0-0.4); LARGE UNSTAINED CELL % 2.1 % (0.0-4.0); LYMPH # 0.8 K/mm3 (1.5-4.5); LYMPH % 20.3 % (24.0-44.0); MEAN CORPUSCULAR HEMOGLOBIN 30.7 pg (27.0-33.0); MEAN CORPUSCULAR VOLUME 93.1 fl (80.0-96.0); MONO # 0.5 K/mm3 (0.0-0.8); NEUTROPHILS # 2.5 K/mm3 (1.8-7.7); NEUTROPHILS % 64.5 % (36.0-66.0); PLATELET COUNT, AUTOMATED 145 k/mm3 (150-450); RED CELL DISTRIBUTION WIDTH 12.8 % (11.5-14.5); WHITE BLOOD COUNT 3.9 K/mm3 (4.0-10.0)
[2016-08-25 06:01] LABS: ANION GAP 7 MEQ/L (8-16); BLOOD UREA NITROGEN 10 MG/DL (7-18); CALCIUM LEVEL 7.8 MG/DL (8.5-10.1); CARBON DIOXIDE LEVEL 25 MEQ/L (21-32); CHLORIDE LEVEL 112 MEQ/L (98-107); CREATININE FOR GFR 0.67 MG/DL (0.55-1.02); GLOMERULAR FILTRATION RATE > 60.0 (>51); GLUCOSE, FASTING 86 MG/DL (70-105); POTASSIUM SERUM 3.8 MEQ/L (3.5-5.1); SODIUM LEVEL 144 MEQ/L (136-145)
[2016-08-25 08:00] VITALS: BP 111/60
[2016-08-25] MEDS ORDERED: PAME25CA PO (08:12)
[2016-08-25] MEDS: SENOKOT S TAB PO SCH (09:41)
[2016-08-25] MEDS: FIBER-CON 625 MG TAB PO SCH (09:41)
[2016-08-25] MEDS: ASPIRIN 81 MG ENTERIC TAB PO SCH (09:41)
[2016-08-25] MEDS: ACETAMINOPHEN TAB 650MG DOSE (2X325MG) PO PRN ×2 (09:44→14:15)
--- NOTE | 2016-08-25 11:39 | IPN ---
DATE: 08/25/2016 Patient seen and examined at the bedside. Chart has been reviewed. This morning, patient continues to complain of weakness left lower extremity, unable to ambulate unassisted. She continues to have photophobia. Telemetry is unremarkable. Remains in sinus rhythm 88-94 beats per minute. Vitals: Temperature 99.8, pulse 94, respiratory rate 18, blood pressure 111/60, 96% on room air. Generally, patient is awake, alert, oriented times three. Pupils equally round and reactive to light and accommodation. Extraocular muscles are intact. Normocephalic, atraumatic, anicteric sclera, no jaundice. No jugular venous distention. No thyromegaly. Tongue is midline. No facial asymmetry. Answers questions appropriately with fluent speech. No sensory disturbance bilateral upper or lower extremities. No pronator drift. Motor function is 5/5 times four extremities. Gait was not tested. Negative Babinski bilaterally. CBC: White count 3.9, hemoglobin 11, hematocrit 35, platelet count 145. Sodium 144, potassium 3.8, chloride 112, bicarbonate 25, BUN 10, creatinine 0.67, glucose of 86. Microbiology: Urine culture appears contaminated. Influenza A and B are negative. ASSESSMENT AND PLAN: This is a 56-year-old female with history of Chiari malformation status post decompression, follows with Dr. Jose Alfredo Reyes in [place], [place], presents to the emergency room with complaints of generalized weakness and passing out as she went from the bedroom to the bathroom at 4:30 in the morning. Patient felt very weak and was grabbing onto things at home. Upon returning to the bedroom, patient had to crawl on her hands and feet. EMS was called. Systolic pressure was over 100. Finger stick was 141. As they attempted to sit her up, patient passed up for about 2-3 minutes according to the , came to immediately. EKG was unremarkable. Remained in sinus rhythm. She was admitted to telemetry with no acute issues. MRI of the brain was unchanged. No acute intracranial pathology aside from known history of decompressive surgery from Chiari malformation. Dr. Jack, neurologist, has been consulted, recommended discontinuation of Topamax, starting the patient on Pamelor. Patient is improved significantly but continues to have some weakness in the left lower extremity. She has been hydrated well and blood pressure appears to be maintained. IMPRESSION: 1. Syncope most likely medication induced per neurology. Patient's Topamax has been discontinued. Patient is currently on Pamelor. For completeness, MRI of the brain was obtained which showed no acute abnormality. Electrolytes appear to be normal. Infectious etiology was unremarkable. For completeness, patient was sent for EEG which is still pending. Echocardiogram is ordered and not available as yet. 2. History of Chiari malformation. Patient's Topamax has been discontinued, on Pamelor currently. May followup as outpatient with Dr. Jose Alfredo Reyes or Dr. Jack. 3. History of headaches and migraines. Continue home medications. 4. Deep venous thrombosis (DVT) prophylaxis on subcutaneous heparin. 5. History of transient ischemic attack (TIA) times two on chronic aspirin. History of patent foramen ovale, awaiting records from Dr. Brooks. Patient has refused closure of patent foramen ovale as recommended by Dr. Brooks. She has met with Dr. Reyes in [place]. Outpatient followup. No acute cerebrovascular accident (CVA) on MRI of the brain. DISPOSITION: If passes a home safety eval, may be discharged home today. Discontinue orthostatic vitals and discontinue intravenous fluids. MTDD
--- NOTE | 2016-08-25 17:39 | ECGEPIP ---
Stationary ECG Study [facility] - ED Test Date: 2016-08-24 Pat Name: SHAHZAD ACOSTA Department: Room: - Gender: F Gis Analyst: ct : 1960 Requested By: Aubrie Lr Order Number: [id number] Reading MD: Aubrie Lr Measurements Intervals [place] Rate: 72 P: 57 GA: 167 QRS: 59 QRSD: 86 T: 39 QT: 418 QTc: 459 Interpretive Statements SINUS RHYTHM NONSPECIFIC T-WAVE ABNORMALITY NO PRIOR FOR COMPARISON Electronically Signed On 08-25-2016 17:39:14 EST by Aubrie Lr
--- NOTE | 2016-08-25 21:01 | ECHO ---
DATE OF PROCEDURE: 08/25/2016 REFERRING PHYSICIAN: Krystle Rodriguez MD INDICATION: Syncope. HEIGHT: 150 cm WEIGHT: 64 kg MEASUREMENTS: Left atrium: 3.4 cm Aortic root: 2.6 cm LVOT: 1.8 cm Ventricular septum: 0.91 cm Posterior wall: 0.92 cm Left ventricle diastole: 3.5 cm Inferior vena cava: 1.6 cm DOPPLER MEASUREMENTS: Aortic valve velocity: 145 cm/s LVOT velocity: 124 cm/s LVOT VTI: 24.9 cm Very mild mitral regurgitation. Mitral E velocity: 79.5 cm/s Mitral A velocity: 79.0 cm/s Mitral deceleration time: 148 ms Very mild tricuspid regurgitation. Estimated right ventricle systolic pressure 28 mmHg assuming a right atrial pressure of 5 mmHg. Pulmonary artery systolic pressure 21 mmHg by pulmonary acceleration time method. MITRAL ANNULAR TISSUE DOPPLER: E prime septal: 6.6 cm/s E prime lateral: 9.4 cm/s DESCRIPTION: Rhythm was sinus. Image quality was adequate. This is a 2D, M-mode, color flow Doppler and pulse wave Doppler examination that included mitral annular tissue Doppler. CONCLUSIONS: 1. Small circumferential pericardial effusion which measured 6-7 mm over the posterior wall of the left ventricle. No diastolic chamber collapse. No significant variation of intracardiac velocities. 2. Normal left ventricle internal dimensions and wall thickness. Normal left ventricle (LV) wall motion and wall thickening. Normal LV systolic function. Left ventricular ejection fraction (LVEF) 65% by visual estimate. LV diastolic function within normal limits for age. 3. Otherwise, normal appearing echocardiogram Doppler.
--- NOTE | 2016-08-26 09:35 | CR ---
DATE OF CONSULTATION: 08/24/2016 REFERRING PROVIDER: Krystle Rodriguez MD REASON FOR CONSULTATION: Generalized weakness and syncope. The patient is a 56-year-old female with a past medical history significant for Chiari malformation status post decompressive surgery presenting with a chief complaint of having an episode where she woke up feeling generally weak all over her body. The patient then later was noted to have episodes of syncope. She did not have any seizure-like activity did not have any postictal state. The patient has returned back to baseline while in [facility]. The patient had an MRI of the brain, MRI of the cervical spine and MR angiogram of the brain, which were all negative. CBC, urinalysis and CMP were essentially unremarkable. The patient is under the care of her neurologist, Dr. Jose Alfredo Ceballos. The patient was identified to have had transient ischemic attacks (TIAs) in the past and has a PFO. She has met with Dr. Brooks but is refusing to have any surgical procedure done. The patient continues to use aspirin 81 mg daily. The patient does not have any myelopathic features on examination. There was no compression of her cervical spinal cord to account for the generalized weakness throughout her body. The patient has had symptoms of blurred vision and generalized weakness, dizziness, all since starting topiramate. She initially was put on topiramate 50 mg twice a day by her neurologist in [place] Dr. Eller who retired. He did reduce the dosage down to 25 mg twice a day, which helped, but still the symptoms persisted. The patient gets random episodes through the day where she gets off balance and dizzy. She would benefit by discontinuing topiramate completely and starting nortriptyline. The patient does state that she has difficulty sleeping at night. Will start 25 mg of nortriptyline every night. PAST MEDICAL HISTORY: TIA. Chiari malformation. Depression. Migraine headaches. ALLERGIES: 1. SULFA - rash. HOME MEDICATIONS: - aspirin 81 mg by mouth daily - paroxetine 20 mg daily - Topamax 25 mg by mouth daily - Xanax 0.25 mg by mouth three times a day - fiber capsule two capsules by mouth twice a day PAST SURGICAL HISTORY: Chiari decompression. Tonsillectomy. Tubal ligation. SOCIAL HISTORY: The patient denies use of tobacco, alcohol or illicit drugs. REVIEW OF SYSTEMS: 14-point review of systems was obtained and is negative except as per history of present illness. PHYSICAL EXAMINATION: Blood pressure is 99/52, pulse rate 78, respiratory rate is 20, oxygenation 96% on room air, temperature 98.2 degrees Fahrenheit. The patient is alert, oriented to person, place and time. Speech, language, comprehension and repetition are intact. Pupils are 3 mm round and reactive to light with some mild photophobia. Sensation V1, V2 and V3 is intact to light touch. No facial asymmetry on activation. Palate elevates symmetrically. Tongue is midline. No weakness of sternocleidomastoids bilaterally. Hearing subjectively equal to finger rub. No weakness. Strength testing reveals 5/5 strength testing involving bilateral deltoids, biceps, triceps, handgrip, iliopsoas, quadriceps, anterior tibialis. Deep tendon reflexes are 2s throughout. Romberg testing is negative. Sensory is intact to light touch in all four extremities. Coordination normal [id number]-[id number], [id number]-tt-[id number] without any signs of ataxia, or dysmetria. ASSESSMENT: 1. Possible side effects from topiramate including photosensitivity, dizziness, off balance feeling, paresthesias of the skin and generalized weakness. PLAN 1. Discontinue topiramate and start nortriptyline 25 mg by mouth at bedtime. Followup with Dr. Jose Alfredo Ceballos, neurologist, as an outpatient. 2. There is no evidence of acute stroke after completing workup in our hospital this visit. If the patient is doing well the next 24 hours she can likely be discharged home with neurological followup.
--- NOTE | 2016-08-26 15:05 | EDDOCDS ---
Physician Documentation [facility] Name: Jenna Macias Age: 56 yrs Sex: Female : 1960 Arrival Date: 08/24/2016 Time: 05:20 Bed 4 Private MD: Chris Rivers R. Disposition: 08/24/16 09:34 Hospitalization ordered by Krystle Rodriguez for Inpatient Admission. Preliminary diagnosis is Syncope and collapse. - Bed requested for PCU. - Status is Inpatient Admission. ead - Condition is Stable. - Problem is new. - Symptoms are resolved. Historical: - Allergies: SULFA (SULFONAMIDES) (Rash); - Home Meds: 1. aspirin 81 mg Oral TbEC 1 tab once daily (Last dose: 08/23/2016) 2. paroxetine HCl 20 mg Oral tab 1 tab once daily (Last dose: 08/23/2016) 3. Topamax 25 mg Oral tab 1 tabs 2 times per day (Last dose: 08/23/2016) 4. Xanax 0.25 mg Oral tab 3 times per day (Last dose: Unknown) - PMHx: TIA; Chiari Malformation; Depression; Migraine Headaches; Patent foramen ovale; - PSHx: Chiari decompression; Tonsillectomy; Tubal ligation; - Social history: Smoking status: Patient states was never smoker of tobacco. Patient uses alcohol occasionally. No barriers to communication noted, The patient speaks fluent Cuban. - Family history: Mother has/had diabetes mellitus, Father has/had cancer, Daughter has/had seizure. - : The pt / caregiver states he / she is on anticoagulants: Home medication list is obtained from the patient. - Exposure Risk Screening:: None identified. 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 0 in. (152.40 cm) (R); Pain 0/10; 05:39 BP 97 / 44 (auto/); mv5 05:39 Pulse 74 MON; Pulse Ox 98% ; mv5 05:54 BP 94 / 50 (auto/); mv5 05:54 Pulse 74 MON; Pulse Ox 98% ; mv5 06:09 BP 89 / 54 (auto/); mv5 06:09 Pulse 72 MON; Pulse Ox 98% ; mv5 06:24 BP 83 / 54 (auto/); mv5 06:24 Pulse 78 MON; Pulse Ox 98% ; mv5 06:39 BP 92 / 53 (auto/); mv5 06:39 Pulse 74 MON; Pulse Ox 99% ; mv5 07:09 BP 99 / 58 (auto/); ead 07:09 Pulse 72 MON; Resp 16; Pulse Ox 98% on R/A; ead 07:24 BP 95 / 50 (auto/); ead 07:24 Pulse 72 MON; Pulse Ox 98% ; ead 07:54 BP 97 / 53 (auto/); ead 07:54 Pulse 72 MON; Pulse Ox 97% ; ead 08:07 Pulse 72 MON; Resp 16; Pulse Ox 97% on R/A; ead 08:09 BP 91 / 53 (auto/); ead 08:24 BP 94 / 53 (auto/); ead 08:24 Pulse 76 MON; Pulse Ox 96% on R/A; ead 08:39 Pulse 74 MON; Pulse Ox 95% ; ead 08:39 BP 95 / 51 (auto/); ead 08:54 BP 99 / 58 (auto/); ead 08:54 Pulse 72 MON; Pulse Ox 97% ; ead 09:09 BP 94 / 53 (auto/); ead 09:09 Pulse 78 MON; Pulse Ox 96% ; ead 09:24 BP 89 / 51 (auto/); ead 09:24 Pulse 74 MON; Pulse Ox 95% ; ead 09:39 BP 93 / 50 (auto/); ead 09:39 Pulse 76 MON; Pulse Ox 96% ; ead 09:54 BP 92 / 55 (auto/); ead 09:54 Pulse 78 MON; Pulse Ox 96% ; ead 10:24 BP 104 / 53 (auto/); ead 10:24 Pulse 82 MON; Pulse Ox 96% ; ead 10:39 BP 100 / 49; Pulse 76 MON; Resp 16; Temp 97.9; Pulse Ox 95% on R/A; ead 10:39 BP 100 / 49 (auto/); ead 10:40 Pulse 78 MON; Pulse Ox 96% ; ead 10:54 BP 99 / 52 (auto/); ead 10:54 Pulse 74 MON; Resp 16; Pulse Ox 96% on R/A; ead 13:56 BP 90 / 53; Pulse 69; Resp 18; Temp 98.3(T); Pulse Ox 98% on R/A; ad 05:26 Body Mass Index 25.39 (58.97 kg, 152.40 cm) jovi MDM: 06:37 IV Saline Lock ordered. cs11 06:37 NS 0.9% 1000 ml IV at bolus once ordered. cs11 06:37 ketorolac 30 mg IVP once ordered. cs11 06:38 Chest, 2 View (pa\E\lat) Ordered. EDMS 06:38 CBC with Diff Ordered. EDMS 06:38 MED Profile Ordered. EDMS 06:38 Liver Profile Ordered. EDMS 06:38 Creatine Phosphokinase Ordered. EDMS 06:38 Urinalysis Ordered. EDMS 06:38 -Influenza A&B Rapid Antigen - Nose Ordered. EDMS 06:38 Urine Culture Ordered. EDMS 07:07 Financial registration complete. pm4 07:35 CBC with Diff Reviewed. sd1 07:35 MED Profile Reviewed. sd1 07:35 -Influenza A&B Rapid Antigen - Nose Reviewed. sd1 07:35 Liver Profile Reviewed. sd1 07:35 Creatine Phosphokinase Reviewed. sd1 07:35 Fluid Challenge ordered. sd1 07:40 REGULAR+DIET ordered. EDMS 08:14 Urinalysis Reviewed. sd1 08:32 CIP Ordered. EDMS 08:32 Troponin Ordered. EDMS 08:32 ECG WITH READING ER PHYS+CARDIAG ordered. EDMS 09:02 CIP Reviewed. sd1 09:02 Troponin Reviewed. sd1 09:02 Chest, 2 View (pa\E\lat) Reviewed. sd1 09:30 BED REQUEST+ADM ordered. EDMS 09:39 CARDIAC MARKER PANEL Ordered. EDMS 09:39 CARDIAC MARKER PANEL Ordered. EDMS 09:39 URINALYSIS Ordered. EDMS 09:39 URINE CULTURE Ordered. EDMS 09:41 Admission / Observation Status ordered. EDMS 09:41 ECHOCARD,DOPPLER/COLOR FLOW ordered. EDMS 09:41 ELECTROCARDIOGRAM ADULT ordered. EDMS 09:41 ELECTROCARDIOGRAM ADULT ordered. EDMS 09:41 NO ADDED SALT DIET ordered. EDMS 10:20 [facility] Payment Agreement was scanned into [employer] and attached to record. mm15 10:49 Acetaminophen Tablet 650 mg PO once; Admission order by Dr. Rodriguez ordered. ead 10:51 CT Head without contrast Ordered. EDMS 11:41 MRA BRAIN W/O CONTRAST Ordered. EDMS 11:41 MRI Brain W/O FOLL BY WITH Ordered. EDMS 11:41 MRI-C SPINE W/O FOLL BY WITH Ordered. EDMS 08/25 12:01 T-Sheet-- Draft Copy was scanned into [employer] and attached to record. gb 12:02 PCR was scanned into [employer] and attached to record. gb Administered Medications: 08/24 06:53 Drug: NS 0.9% 1000 ml [sodium chloride 0.9 % intravenous solution] Route: IV; Rate: mv5 bolus; Site: left hand; 06:53 Drug: ketorolac 30 mg [ketorolac 30 mg/mL (1 mL) injection solution (1 mL)] Route: IVP; mv5 Site: left hand; 10:51 Drug: Acetaminophen 650 mg [acetaminophen 325 mg tablet (2 tabs)] Route: PO; ead Signatures: Dispatcher [employer] EDMS Aubrie Lr MD MD sd1 Vidya Edoaurd, RN RN Tena Fragoso, Reg Reg gb Juan Zegn, DO cs11 Astrid Quan mm15 Tracey Nguyen RN RN eaGela Saab RN RN Oscar Miller, Reg Reg pm4 Deedee Marti,RN RN mv5 The chart was reviewed and I authenticate all verbal orders and agree with the evaluation and treatment provided.Corrections: (The following items were deleted from the chart) 11:40 10:50 MRA BRAIN WITH CONTRAST ordered. EDMS EDMS 11:41 11:22 MRI Spine, Cervical with con ordered. EDMS EDMS 11:42 09:39 MRI Brain W/CON ordered. EDMS EDMS Attachments: 10:20 [facility] Payment Agreement mm15 08/25 12:01 T-Sheet-- Draft Copy gb Chart Complete MTDD
--- NOTE | 2016-08-26 15:05 | EDDOCDS ---
Physician Documentation [facility] Name: Jenna Macias Age: 56 yrs Sex: Female : 1960 Arrival Date: 08/24/2016 Time: 05:20 Bed 4 Private MD: Chris Rivers R. Disposition: 08/24/16 09:34 Hospitalization ordered by Krystle Rodriguez for Inpatient Admission. Preliminary diagnosis is Syncope and collapse. - Bed requested for PCU. - Status is Inpatient Admission. ead - Condition is Stable. - Problem is new. - Symptoms are resolved. Historical: - Allergies: SULFA (SULFONAMIDES) (Rash); - Home Meds: 1. aspirin 81 mg Oral TbEC 1 tab once daily (Last dose: 08/23/2016) 2. paroxetine HCl 20 mg Oral tab 1 tab once daily (Last dose: 08/23/2016) 3. Topamax 25 mg Oral tab 1 tabs 2 times per day (Last dose: 08/23/2016) 4. Xanax 0.25 mg Oral tab 3 times per day (Last dose: Unknown) - PMHx: TIA; Chiari Malformation; Depression; Migraine Headaches; Patent foramen ovale; - PSHx: Chiari decompression; Tonsillectomy; Tubal ligation; - Social history: Smoking status: Patient states was never smoker of tobacco. Patient uses alcohol occasionally. No barriers to communication noted, The patient speaks fluent [place]. - Family history: Mother has/had diabetes mellitus, Father has/had cancer, Daughter has/had seizure. - : The pt / caregiver states he / she is on anticoagulants: Home medication list is obtained from the patient. - Exposure Risk Screening:: None identified. 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 0 in. (152.40 cm) (R); Pain 0/10; 05:39 BP 97 / 44 (auto/); mv5 05:39 Pulse 74 MON; Pulse Ox 98% ; mv5 05:54 BP 94 / 50 (auto/); mv5 05:54 Pulse 74 MON; Pulse Ox 98% ; mv5 06:09 BP 89 / 54 (auto/); mv5 06:09 Pulse 72 MON; Pulse Ox 98% ; mv5 06:24 BP 83 / 54 (auto/); mv5 06:24 Pulse 78 MON; Pulse Ox 98% ; mv5 06:39 BP 92 / 53 (auto/); mv5 06:39 Pulse 74 MON; Pulse Ox 99% ; mv5 07:09 BP 99 / 58 (auto/); ead 07:09 Pulse 72 MON; Resp 16; Pulse Ox 98% on R/A; ead 07:24 BP 95 / 50 (auto/); ead 07:24 Pulse 72 MON; Pulse Ox 98% ; ead 07:54 BP 97 / 53 (auto/); ead 07:54 Pulse 72 MON; Pulse Ox 97% ; ead 08:07 Pulse 72 MON; Resp 16; Pulse Ox 97% on R/A; ead 08:09 BP 91 / 53 (auto/); ead 08:24 BP 94 / 53 (auto/); ead 08:24 Pulse 76 MON; Pulse Ox 96% on R/A; ead 08:39 Pulse 74 MON; Pulse Ox 95% ; ead 08:39 BP 95 / 51 (auto/); ead 08:54 BP 99 / 58 (auto/); ead 08:54 Pulse 72 MON; Pulse Ox 97% ; ead 09:09 BP 94 / 53 (auto/); ead 09:09 Pulse 78 MON; Pulse Ox 96% ; ead 09:24 BP 89 / 51 (auto/); ead 09:24 Pulse 74 MON; Pulse Ox 95% ; ead 09:39 BP 93 / 50 (auto/); ead 09:39 Pulse 76 MON; Pulse Ox 96% ; ead 09:54 BP 92 / 55 (auto/); ead 09:54 Pulse 78 MON; Pulse Ox 96% ; ead 10:24 BP 104 / 53 (auto/); ead 10:24 Pulse 82 MON; Pulse Ox 96% ; ead 10:39 BP 100 / 49; Pulse 76 MON; Resp 16; Temp 97.9; Pulse Ox 95% on R/A; ead 10:39 BP 100 / 49 (auto/); ead 10:40 Pulse 78 MON; Pulse Ox 96% ; ead 10:54 BP 99 / 52 (auto/); ead 10:54 Pulse 74 MON; Resp 16; Pulse Ox 96% on R/A; ead 13:56 BP 90 / 53; Pulse 69; Resp 18; Temp 98.3(T); Pulse Ox 98% on R/A; ad 05:26 Body Mass Index 25.39 (58.97 kg, 152.40 cm) jovi MDM: 06:37 IV Saline Lock ordered. cs11 06:37 NS 0.9% 1000 ml IV at bolus once ordered. cs11 06:37 ketorolac 30 mg IVP once ordered. cs11 06:38 Chest, 2 View (pa\E\lat) Ordered. EDMS 06:38 CBC with Diff Ordered. EDMS 06:38 MED Profile Ordered. EDMS 06:38 Liver Profile Ordered. EDMS 06:38 Creatine Phosphokinase Ordered. EDMS 06:38 Urinalysis Ordered. EDMS 06:38 -Influenza A&B Rapid Antigen - Nose Ordered. EDMS 06:38 Urine Culture Ordered. EDMS 07:07 Financial registration complete. pm4 07:35 CBC with Diff Reviewed. sd1 07:35 MED Profile Reviewed. sd1 07:35 -Influenza A&B Rapid Antigen - Nose Reviewed. sd1 07:35 Liver Profile Reviewed. sd1 07:35 Creatine Phosphokinase Reviewed. sd1 07:35 Fluid Challenge ordered. sd1 07:40 REGULAR+DIET ordered. EDMS 08:14 Urinalysis Reviewed. sd1 08:32 CIP Ordered. EDMS 08:32 Troponin Ordered. EDMS 08:32 ECG WITH READING ER PHYS+CARDIAG ordered. EDMS 09:02 CIP Reviewed. sd1 09:02 Troponin Reviewed. sd1 09:02 Chest, 2 View (pa\E\lat) Reviewed. sd1 09:30 BED REQUEST+ADM ordered. EDMS 09:39 CARDIAC MARKER PANEL Ordered. EDMS 09:39 CARDIAC MARKER PANEL Ordered. EDMS 09:39 URINALYSIS Ordered. EDMS 09:39 URINE CULTURE Ordered. EDMS 09:41 Admission / Observation Status ordered. EDMS 09:41 ECHOCARD,DOPPLER/COLOR FLOW ordered. EDMS 09:41 ELECTROCARDIOGRAM ADULT ordered. EDMS 09:41 ELECTROCARDIOGRAM ADULT ordered. EDMS 09:41 NO ADDED SALT DIET ordered. EDMS 10:20 [facility] Payment Agreement was scanned into [employer] and attached to record. mm15 10:49 Acetaminophen Tablet 650 mg PO once; Admission order by Dr. Rodriguez ordered. ead 10:51 CT Head without contrast Ordered. EDMS 11:41 MRA BRAIN W/O CONTRAST Ordered. EDMS 11:41 MRI Brain W/O FOLL BY WITH Ordered. EDMS 11:41 MRI-C SPINE W/O FOLL BY WITH Ordered. EDMS 08/25 12:01 T-Sheet-- Draft Copy was scanned into [employer] and attached to record. gb 12:02 PCR was scanned into [employer] and attached to record. gb Administered Medications: 08/24 06:53 Drug: NS 0.9% 1000 ml [sodium chloride 0.9 % intravenous solution] Route: IV; Rate: mv5 bolus; Site: left hand; 06:53 Drug: ketorolac 30 mg [ketorolac 30 mg/mL (1 mL) injection solution (1 mL)] Route: IVP; mv5 Site: left hand; 10:51 Drug: Acetaminophen 650 mg [acetaminophen 325 mg tablet (2 tabs)] Route: PO; ead Signatures: Dispatcher [employer] EDMS Aubrie Lr MD MD sd1 Vidya Edouard, RN RN Tena Fragoso, Reg Reg gb Juan Zeng, DO cs11 Astrid Quan mm15 Tracey Nguyen RN RN eaGela Saab RN RN Oscar Miller, Reg Reg pm4 Deeede Marti,RN RN mv5 The chart was reviewed and I authenticate all verbal orders and agree with the evaluation and treatment provided.Corrections: (The following items were deleted from the chart) 11:40 10:50 MRA BRAIN WITH CONTRAST ordered. EDMS EDMS 11:41 11:22 MRI Spine, Cervical with con ordered. EDMS EDMS 11:42 09:39 MRI Brain W/CON ordered. EDMS EDMS Attachments: 10:20 [facility] Payment Agreement mm15 08/25 12:01 T-Sheet-- Draft Copy gb Chart Complete MTDD
--- NOTE | 2016-08-26 15:05 | EDDOCDS ---
Nurse's Notes [facility] Name: Jenna Macias Age: 56 yrs Sex: Female : 1960 Arrival Date: 08/24/2016 Time: 05:20 Bed 4 Private MD: Chris Rivers R. Diagnosis: Syncope and collapse Presentation: 08/24 05:23 Presenting complaint: EMS states: Pt to ED by EMS for evaluation after syncopal episode mv5 in presence of EMS. FSBG 141 mg/dL by EMS, given small NS bolus VEGETABLE LOADER. Pt reports URI symptoms last week, denies N/V/D. Took Sudafed for sinus congestion last evening. Adult Sepsis Screening: The patient does not have new or worsening altered mentation. Patient's respiratory rate is less than 22. Systolic blood pressure is greater than 100. Patient has a qSOFA score of 0- Negative Sepsis Screen. Suicide/Homicide risk assessment- the patient denies having any suicidal and/or homicidal ideations and does not present with any other emotional, behavioral or mental health complaints. Status: Patient is not a family services specialist or dependent. Transition of care: patient was not received from another setting of care. Care prior to arrival: Medications administered prior to arrival: NS 250 ml bolus. IV initiated. Glucose check. 141. 05:23 Acuity: KODY Level 3 mv5 05:23 Method Of Arrival: Ambulance mv5 Triage Assessment: 05:32 General: Appears uncomfortable, well nourished, Behavior is appropriate for age, mv5 cooperative, pleasant. Pain: Denies pain. Pt Declines HIV testing. The patient is triaged at the bedside. See Assessment in Nurses Notes section of ED record. Neurological: Level of Consciousness is awake, alert, Oriented to person, place, time. Cardiovascular: Capillary refill < 3 seconds Heart tones S1 S2 present Pulses are all present. Rhythm is sinus rhythm No ectopy. Chest pain is denied. Respiratory: Airway is patent Respiratory effort is even, Respiratory pattern is regular, symmetrical, Breath sounds are clear bilaterally. GI: Abdomen is flat, Bowel sounds present X 4 quads. Abd is soft. Derm: Skin is clammy, Skin is pink, Skin temperature is warm. DENTAL SCHEDULER: 05:32 LMP N/A - Post-menopause mv5 Historical: - Allergies: SULFA (SULFONAMIDES) (Rash); - Home Meds: 1. aspirin 81 mg Oral TbEC 1 tab once daily (Last dose: 08/23/2016) 2. paroxetine HCl 20 mg Oral tab 1 tab once daily (Last dose: 08/23/2016) 3. Topamax 25 mg Oral tab 1 tabs 2 times per day (Last dose: 08/23/2016) 4. Xanax 0.25 mg Oral tab 3 times per day (Last dose: Unknown) - PMHx: TIA; Chiari Malformation; Depression; Migraine Headaches; Patent foramen ovale; - PSHx: Chiari decompression; Tonsillectomy; Tubal ligation; - Social history: Smoking status: Patient states was never smoker of tobacco. Patient uses alcohol occasionally. No barriers to communication noted, The patient speaks fluent Khmer. - Family history: Mother has/had diabetes mellitus, Father has/had cancer, Daughter has/had seizure. - : The pt / caregiver states he / she is on anticoagulants: Home medication list is obtained from the patient. - Exposure Risk Screening:: None identified. Screenin:36 Screening information is obtained from the patient. Fall risk: No risks identified. mv5 Assistance ADL's: requires no assistance with activities of daily living. Abuse/DV Screen: The patient / caregiver reports he/she is: not in a situation that causes fear, pain or injury. Nutritional screening: No deficits noted. Advance Directives: There is no active DNR order. home support is adequate. Assessment: 05:36 General: See triage assessment.. Neurological: Level of Consciousness is awake, alert, mv5 Oriented to person, place, time. Cardiovascular: Capillary refill < 3 seconds Heart tones S1 S2 present Pulses are all present. Rhythm is sinus rhythm No ectopy. 06:44 General: Appears in no apparent distress, MD in to evaluate pt.. Neurological: Level of mv5 Consciousness is awake, alert, Oriented to person, place, time. Cardiovascular: Rhythm is sinus rhythm No ectopy. Derm: Skin is pink, warm & dry. 07:13 General: Appears in no apparent distress, pt wearing sunglasses's and covering face ead with blanket. pt reports the light bothers her. curtains drawn and lights are off. family is at bedside. pt denies need to void for UA at this time. call within reach. . Cardiovascular: Rhythm is sinus rhythm No ectopy. Respiratory: Airway is patent Respiratory effort is even, unlabored. Derm: Skin is pink, warm & dry. 07:49 General: pt ambulated to bathroom for UA without difficulty. returned to room and will ead continue to monitor. . Respiratory: Respiratory effort is even, unlabored. Derm: Skin is pink, warm & dry. 08:34 Adult Sepsis Screening: The patient does not have new or worsening altered mentation. ead Patient's respiratory rate is less than 22. Systolic blood pressure is greater than 100. Patient has a qSOFA score of 0- Negative Sepsis Screen. General: Appears in no apparent distress, comfortable, Behavior is appropriate for age, cooperative. Neurological: Level of Consciousness is awake, alert, obeys commands, Oriented to person, place, time, pt continues to keep sunglasses' on and lights off. maintains at bedside. . Cardiovascular: Rhythm is sinus rhythm. Respiratory: Respiratory effort is even, unlabored. 09:49 General: Appears in no apparent distress, to be sleeping. Cardiovascular: Rhythm is ead sinus rhythm No ectopy. Respiratory: No deficits noted. 10:11 General: Dr. Rodriguez at bedside to assess pt. . Cardiovascular: Rhythm is sinus ead rhythm. Respiratory: Airway is patent Respiratory effort is even, unlabored. Derm: Skin is pink, warm & dry. 10:53 General: pt informed admission nurse of headache of 10/25. pt medicated with Tylenol as ead ordered by Dr. Rodriguez with written order. pt updated of admission plan and bed status. room 3221 currently not clean. will take pt to floor upon room being ready for pt. . 10:58 General: SBAR faxed and tubed to PCU. ead 11:40 General: Appears in no apparent distress, comfortable, Behavior is appropriate for age, ead cooperative, PCU confirms SBAR is received, states room 3221 currently not cleaned. Requesting pt to go to MRI prior to coming to floor. This nurse spoke with MRI and they report unsure of what time pt will be called but to keep pt in ER. Pt provided with screening tool for MRI and updated on current plan. . Cardiovascular: Rhythm is sinus rhythm No ectopy. Respiratory: Airway is patent Respiratory effort is even, unlabored. Derm: Skin is pink, warm & dry. 12:04 General: MRI ready for pt. Pt to MRI via stretcher per ED DRILL SHARPENER OPERATOR. . ead 13:03 General: pt still in MRI. will move pt to PCU when pt is returned.. ead 13:44 General: pt returned from MRI. ead 13:53 General: Appears in no apparent distress, comfortable, Behavior is appropriate for age, ead cooperative. Neurological: Level of Consciousness is awake, alert, obeys commands, Oriented to person, place, time. Cardiovascular: Rhythm is sinus rhythm. Respiratory: Airway is patent Respiratory effort is even, unlabored. Derm: Skin is pink, warm & dry. Vital Signs: 05:26 BP 97 / 47; Pulse 84; Resp 18; Temp 97.9(TE); Weight 58.97 kg (R); Height 5 ft. 0 in. jovi (152.40 cm) (R); Pain 0/10; 05:39 BP 97 / 44 (auto/); mv5 05:39 Pulse 74 MON; Pulse Ox 98% ; mv5 05:54 BP 94 / 50 (auto/); mv5 05:54 Pulse 74 MON; Pulse Ox 98% ; mv5 06:09 BP 89 / 54 (auto/); mv5 06:09 Pulse 72 MON; Pulse Ox 98% ; mv5 06:24 BP 83 / 54 (auto/); mv5 06:24 Pulse 78 MON; Pulse Ox 98% ; mv5 06:39 BP 92 / 53 (auto/); mv5 06:39 Pulse 74 MON; Pulse Ox 99% ; mv5 07:09 BP 99 / 58 (auto/); ead 07:09 Pulse 72 MON; Resp 16; Pulse Ox 98% on R/A; ead 07:24 BP 95 / 50 (auto/); ead 07:24 Pulse 72 MON; Pulse Ox 98% ; ead 07:54 BP 97 / 53 (auto/); ead 07:54 Pulse 72 MON; Pulse Ox 97% ; ead 08:07 Pulse 72 MON; Resp 16; Pulse Ox 97% on R/A; ead 08:09 BP 91 / 53 (auto/); ead 08:24 BP 94 / 53 (auto/); ead 08:24 Pulse 76 MON; Pulse Ox 96% on R/A; ead 08:39 Pulse 74 MON; Pulse Ox 95% ; ead 08:39 BP 95 / 51 (auto/); ead 08:54 BP 99 / 58 (auto/); ead 08:54 Pulse 72 MON; Pulse Ox 97% ; ead 09:09 BP 94 / 53 (auto/); ead 09:09 Pulse 78 MON; Pulse Ox 96% ; ead 09:24 BP 89 / 51 (auto/); ead 09:24 Pulse 74 MON; Pulse Ox 95% ; ead 09:39 BP 93 / 50 (auto/); ead 09:39 Pulse 76 MON; Pulse Ox 96% ; ead 09:54 BP 92 / 55 (auto/); ead 09:54 Pulse 78 MON; Pulse Ox 96% ; ead 10:24 BP 104 / 53 (auto/); ead 10:24 Pulse 82 MON; Pulse Ox 96% ; ead 10:39 BP 100 / 49; Pulse 76 MON; Resp 16; Temp 97.9; Pulse Ox 95% on R/A; ead 10:39 BP 100 / 49 (auto/); ead 10:40 Pulse 78 MON; Pulse Ox 96% ; ead 10:54 BP 99 / 52 (auto/); ead 10:54 Pulse 74 MON; Resp 16; Pulse Ox 96% on R/A; ead 13:56 BP 90 / 53; Pulse 69; Resp 18; Temp 98.3(T); Pulse Ox 98% on R/A; ad 05:26 Body Mass Index 25.39 (58.97 kg, 152.40 cm) jovi Vitals: 05:32 Glucose Measurement D-stick in Triage- Hyperglycemia. Log In Time N/A - ambulance mv5 arrival. ED Course: 05:21 Patient visited by Christoph Martinez PCA. mdr 05:21 Chris Rivers is Private Physician. mdr 05:21 Deedee Marti,RN is Primary Nurse. mdr 05:21 Patient moved to Waiting mdr 05:21 Patient moved to 4 mdr 05:26 Patient visited by Ramila Green PCA. jovi 05:26 Pt greeted and oriented to ED. Patient advised of names of staff involved in care, jovi location of call , wait times and NPO status. Patient has correct armband on for positive identification. Placed in gown. Bed in low position. Call light in reach. Side rails up X2. surveillance system monitor on. Pulse ox on. NIBP on. 05:28 Triage Initiated mv5 05:36 The patient / caregiver is instructed regarding the plan of care and ED course. mv5 05:36 IV is patent, is intact. mv5 06:15 Juan Zeng DO is Attending Physician. cs11 06:15 Patient visited by Juan Zeng DO. cs11 06:15 Patient visited by Juan Zeng DO. cs11 06:43 Patient moved to Radiology dorothea 06:53 -Influenza A&B Rapid Antigen - Nose Sent. mv5 06:53 Creatine Phosphokinase Sent. mv5 06:53 Liver Profile Sent. mv5 06:54 Attending Physician role handed off by Juan Zeng DO sd1 06:54 Aubrie Lr MD is Attending Physician. sd1 06:54 MED Profile Sent. mv5 06:54 CBC with Diff Sent. mv5 07:00 Report received from Deedee Erwin RN. ead 07:07 Tracey Nguyen RN is Primary Nurse. ead 07:34 Patient visited by Tracey Nguyen RN. ead 07:34 Patient moved to 4 ead 07:49 Urinalysis Sent. ead 07:49 Urine Culture Sent. ead 08:33 Patient visited by Tracey Nguyen RN. ead 08:33 Troponin Sent. ead 08:33 CIP Sent. ead 08:45 EKG done. (by ED staff). Reviewed by Aubrie Lr MD. ct3 08:55 Chest, 2 View (pa\E\lat) Returned. EDMS 08:59 Patient visited by Rafaela Woodard PCA. ct3 08:59 Diet: Patient given regular meal. ct3 09:34 Krystle Rodriguez is Hospitalizing Provider. sd1 10:20 [facility] Payment Agreement was scanned into [employer] and attached to record. mm15 11:19 Primary Nurse role handed off by Deedee Marti RN mcp 11:42 CT Head without contrast Returned. EDMS 13:14 No procedures done that require assistance. ead 13:15 Patient visited by Radha Valdes. ad 13:15 Diet tray given. ad 13:57 Patient visited by Radha Valdes. ad 13:59 MRA BRAIN W/O CONTRAST Returned. EDMS 08/25 12:01 T-Sheet-- Draft Copy was scanned into [employer] and attached to record. gb 12:02 PCR was scanned into [employer] and attached to record. gb Administered Medications: 08/24 06:53 Drug: NS 0.9% 1000 ml [sodium chloride 0.9 % intravenous solution] Route: IV; Rate: mv5 bolus; Site: left hand; 06:53 Drug: ketorolac 30 mg [ketorolac 30 mg/mL (1 mL) injection solution (1 mL)] Route: IVP; mv5 Site: left hand; 10:51 Drug: Acetaminophen 650 mg [acetaminophen 325 mg tablet (2 tabs)] Route: PO; ead Order Results: Lab Order: -Influenza A&B Rapid Antigen - Nose; SPEC'M 08/24/16 06:55 Test: INFLUENZA A RAPID SCR by ICA; Value: INFLUENZA A RESULTS NEGATIVE; Status: F Test: INFLUENZA A RAPID SCR by ICA; Value: Comments:; Status: F Test: INFLUENZA B RAPID SCR by ICA; Value: INFLUENZA B RESULTS NEGATIVE; Status: F Test Note: ; The Influenza test is a direct rapid immunoassay for the qualitative detection of Influenza viral antigen. Cell culture (Viral Culture) testing should be considered to confirm NEGATIVE results and to assist in detecting other viruses that can provide similar clinical symptoms. Please contact the lab within 24 hours ([phone]) if confirmatory testing is desired. Lab Order: CBC with Diff; SPEC'M 08/24/16 06:55 Test: WHITE BLOOD COUNT; Value: 7.4; Range: 4.0-10.0; Units: K/mm3; Status: F Test: RED BLOOD COUNT; Value: 4.42; Range: 4.00-5.40; Units: M/mm3; Status: F Test: HEMOGLOBIN; Value: 13.4; Range: 12.0-16.0; Units: g/dl; Status: F Test: HEMATOCRIT; Value: 41.6; Range: 36.0-47.0; Units: %; Status: F Test: MEAN CORPUSCULAR VOLUME; Value: 94.1; Range: 80.0-96.0; Units: fl; Status: F Test: MEAN CORPUSCULAR HEMOGLOBIN; Value: 30.4; Range: 27.0-33.0; Units: pg; Status: F Test: MEAN CORPUSCULAR HGB CONC; Value: 32.4; Range: 32.0-36.5; Units: g/dl; Status: F Test: RED CELL DISTRIBUTION WIDTH; Value: 12.6; Range: 11.5-14.5; Units: %; Status: F Test: PLATELET COUNT, AUTOMATED; Value: 174; Range: 150-450; Units: k/mm3; Status: F Test: NEUTROPHILS %; Value: 86.5; Range: 36.0-66.0; Abnormal: Above high normal; Units: %; Status: F Test: LYMPH %; Value: 4.9; Range: 24.0-44.0; Abnormal: Below low normal; Units: %; Status: F Test: MONO %; Value: 7.1; Range: 0.0-5.0; Abnormal: Above high normal; Units: %; Status: F Test: EOS %; Value: 0.1; Range: 0.0-3.0; Units: %; Status: F Test: BASO %; Value: 0.3; Range: 0.0-1.0; Units: %; Status: F Test: LARGE UNSTAINED CELL %; Value: 1.0; Range: 0.0-4.0; Units: %; Status: F Test: NEUTROPHILS #; Value: 6.4; Range: 1.8-7.7; Units: K/mm3; Status: F Test: LYMPH #; Value: 0.4; Range: 1.5-4.5; Abnormal: Below low normal; Units: K/mm3; Status: F Test: MONO #; Value: 0.5; Range: 0.0-0.8; Units: K/mm3; Status: F Test: EOS #; Value: 0.0; Range: 0.0-0.50; Units: K/mm3; Status: F Test: BASO #; Value: 0.0; Range: 0.0-0.2; Units: K/mm3; Status: F Test: LARGE UNSTAINED CELL #; Value: 0.1; Range: 0.0-0.4; Units: K/mm3; Status: F Lab Order: MED Profile; SPEC'M 08/24/16 06:55 Test: GLUCOSE, FASTING; Value: 112; Range: 70-105; Abnormal: Above high normal; Units: MG/DL; Status: F Test: BLOOD UREA NITROGEN; Value: 13; Range: 7-18; Units: MG/DL; Status: F Test: CREATININE FOR GFR; Value: 0.71; Range: 0.55-1.02; Units: MG/DL; Status: F Test: GLOMERULAR FILTRATION RATE; Value: > 60.0; Range: >51; Status: F Test: SODIUM LEVEL; Value: 140; Range: 136-145; Units: MEQ/L; Status: F Test: POTASSIUM SERUM; Value: 4.4; Range: 3.5-5.1; Units: MEQ/L; Status: F Test: CHLORIDE LEVEL; Value: 108; Range: 98-107; Abnormal: Above high normal; Units: MEQ/L; Status: F Test: CARBON DIOXIDE LEVEL; Value: 26; Range: 21-32; Units: MEQ/L; Status: F Test: ANION GAP; Value: 6; Range: 8-16; Abnormal: Below low normal; Units: MEQ/L; Status: F Test: CALCIUM LEVEL; Value: 8.0; Range: 8.5-10.1; Abnormal: Below low normal; Units: MG/DL; Status: F Test Note: ; Units are mL/min/1.73 m2 Chronic Kidney Disease Staging per NKF: Stage I & II GFR >=60 Normal to Mildly Decreased Stage III GFR 30-59 Moderately Decreased Stage IV GFR 15-29 Severely Decreased Stage V GFR <15 Very Little GFR Left ESRD GFR <15 on ARC WELDER Lab Order: Liver Profile; [facility] 08/24/16 06:55 Test: AST/SGOT; Value: 16; Range: 15-37; Units: U/L; Status: F Test: ALT/SGPT; Value: 26; Range: 12-78; Units: U/L; Status: F Test: ALKALINE PHOSPHATASE; Value: 47; Range: 45-117; Units: U/L; Status: F Test: BILIRUBIN,TOTAL; Value: 0.4; Range: 0.2-1.0; Units: MG/DL; Status: F Test: BILIRUBIN,DIRECT; Value: 0.1; Range: 0.0-0.2; Units: MG/DL; Status: F Test: TOTAL PROTEIN; Value: 6.5; Range: 6.4-8.2; Units: GM/DL; Status: F Test: ALBUMIN; Value: 3.5; Range: 3.2-5.2; Units: GM/DL; Status: F Test: ALBUMIN/GLOBULIN RATIO; Value: 1.17; Range: 1.00-1.93; Status: F Lab Order: Creatine Phosphokinase; SPEC'M 08/24/16 06:55 Test: CPK CREATINE PHOSPHOKINASE; Value: 57; Range: 26-192; Units: U/L; Status: F Lab Order: Urinalysis; SPEC'M 08/24/16 06:56 Test: APPEARANCE, URINE; Value: CLOUDY; Range: CLEAR; Abnormal: Above high normal; Status: F Test: COLOR, URINE; Value: YELLOW; Range: YELLOW; Status: F Test: PH,URINE; Value: 7.0; Range: 5.0-9.0; Units: UNITS; Status: F Test: SPECIFIC GRAVITY URINE AUTO; Value: 1.013; Range: 1.002-1.035; Status: F Test: PROTEIN, URINE AUTO; Value: NEGATIVE; Range: NEGATIVE; Units: mg/dL; Status: F Test: GLUCOSE, URINE (UA) AUTO; Value: NEGATIVE; Range: NEGATIVE; Units: mg/dL; Status: F Test: KETONE, URINE AUTO; Value: NEGATIVE; Range: NEGATIVE; Units: mg/dL; Status: F Test: UROBILINOGEN, URINE AUTO; Value: 0.2; Range: 0.0-2.0; Units: mg/dL; Status: F Test: BILIRUBIN, URINE AUTO; Value: NEGATIVE; Range: NEGATIVE; Status: F Test: NITRITE, URINE AUTO; Value: NEGATIVE; Range: NEGATIVE; Status: F Test: LEUKOCYTE ESTERASE, URINE AUTO; Value: NEGATIVE; Range: NEGATIVE; Status: F Test: BLOOD, URINE BLOOD; Value: NEGATIVE; Range: NEGATIVE; Status: F Test: WBC, URINE AUTO; Value: 3; Range: 0-3; Units: /HPF; Status: F Test: RBC, URINE AUTO; Value: 4; Range: 0-3; Abnormal: Above high normal; Units: /HPF; Status: F Test: BACTERIA, URINE AUTO; Value: 1+; Range: NEGATIVE; Abnormal: Above high normal; Status: F Test: SQUAMOUS EPITHELIAL CELL UR AU; Value: 7; Range: 0-6; Units: /HPF; Status: F Test: MUCUS, URINE; Value: SMALL; Range: NEGATIVE; Status: F Test: HYALINE CAST, URINE AUTO; Value: 1; Range: 0-1; Units: /LPF; Status: F Lab Order: CIP; [facility] 08/24/16 06:55 Test: CPK CREATINE PHOSPHOKINASE; Value: 58; Range: 26-192; Units: U/L; Status: F Test: CK-MB VALUE MASS; Value: 1.0; Range: 0.0-3.6; Units: NG/ML; Status: F Test: MB/CK RELATIVE INDEX; Value: 1.72; Range: < OR =4; Status: F Test Note: ; DIAGNOSIS CRITERIA MMB ng/ml Relative Index (RI) NON-AMI < or = 5 N/A ORTEGA ZONE > 5 < or = 4 AMI > 5 > 4 Lab Order: Troponin; [facility] 08/24/16 06:55 Test: TROPONIN I; Value: < 0.02; Range: < 0.10; Units: NG/ML; Status: F Test Note: ; Troponin I Reference Interval for [employer] LOCI: 99th Percentile= 0.00-0.045 ng/ml Risk Stratification: <= 0.10 ng/ml Decreased Risk for Adverse Clinical Events. 0.10-1.50 ng/ml Increased Risk for Adverse Clinical Events. Evaluation of additional criterion and/or repeat testing in 2-6 hours is suggested to rule out myocardial damage. >= 1.50 ng/ml Indicative of Myocardial Injury. Lab Order: CARDIAC MARKER PANEL; [facility] 08/24/16 12:10 Test: CPK CREATINE PHOSPHOKINASE; Value: 54; Range: 26-192; Units: U/L; Status: F Test: CK-MB VALUE MASS; Value: 1.0; Range: 0.0-3.6; Units: NG/ML; Status: F Test: MB/CK RELATIVE INDEX; Value: 1.85; Range: < OR =4; Status: F Test: TROPONIN I; Value: < 0.02; Range: < 0.10; Units: NG/ML; Status: F Test Note: ; DIAGNOSIS CRITERIA MMB ng/ml Relative Index (RI) NON-AMI < or = 5 N/A ORTEGA ZONE > 5 < or = 4 AMI > 5 > 4 Radiology Order: Chest, 2 View (pa\E\lat) Test: Chest, 2 View (pa\E\lat) REASON FOR EXAMINATION: Cough; PA and lateral chest:; ; Comparisons 10/12/2015.; ; The lung truong are clear. The cardiac size is normal; ; The agnes, mediastinum, and bony thorax are unremarkable.; ; Impression:; ; Negative PA and lateral chest. There is no interval change.; ; ; Signed by; Remberto Benavides MD 08/24/2016 08:13 A; Radiology Order: CT Head without contrast Test: CT Head without contrast REASON FOR EXAMINATION: syncope ; CT Head without contrast; ; HISTORY: Syncope; ; COMPARISON: MR 04/19/2016; ; The patient is status post suboccipital craniectomy for cerebellar tonsillar; ectopia. There is no intraparenchymal hemorrhage, acute infarct, mass or; midline shift. The ventricular system is normal in appearance. There is no; extra cerebral collection. There is no fracture. The visualized sinuses are; clear.; ; IMPRESSION: There is no intracranial lesion.; ; ; ; ; Signed by; Suhail Worthy MD 08/24/2016 11:33 A; Radiology Order: MRA BRAIN W/O CONTRAST Test: MRA BRAIN W/O CONTRAST REASON FOR EXAMINATION: chiari malformation syncope ; MR angiography the brain without contrast:; ; History: Syncope. Status post prior Chiari decompression surgery 2003.; Comparison MR angiography of the brain is from April 19, 2016.; ; Technique: 3-D [id number] MR angiography of the brain is acquired in the; usual fashion and maximal intensity projection images were generated in; rotational format about the vertical and horizontal axes. In addition, source; axial T1-weighted images are viewed in cine mode.; ; MR angiographic findings: The distal vertebral arteries are patent and; co-dominant. Basilar artery is a little tortuous but widely patent. The; posterior cerebral and superior cerebellar vessels are normal and symmetric. The; distal internal carotid arteries are unremarkable. Anterior and middle cerebral; arteries appear intact. There is no visible marroquin aneurysm or arteriovenous; malformation.; ; Impression:; ; Unremarkable MR angiography the brain.; ; ; Signed by; Uriah Parker MD 08/24/2016 01:45 P; Outcome: 09:34 Decision to Hospitalize by Provider. sd1 10:54 Discharge Assessment: patient administered narcotics - no. ead 13:14 CT Study completed. MRI Study completed. ead 13:54 The following High Risk Discharge criteria are identified: None. Admitted to PCU ead accompanied by nurse, accompanied by tech, family with patient, via stretcher, on monitor, with chart. Condition: stable. Property :Personal belongings accompany Pt. 14:04 Patient left the ED. ead Signatures: Dispatcher [employer] EDMS Aubrie Lr MD MD sd1 Nella Whitley RN RN mcp Stoney Thomas Gloria, Reg Reg gb Lucio, Radha ad Ramila Green, DRILL SHARPENER OPERATOR DRILL SHARPENER OPERATOR jovi Woodard, Rafaela, DRILL SHARPENER OPERATOR DRILL SHARPENER OPERATOR ct3 Juan Zeng, DO cs11 Astrid Quan mm15 Tracey Nguyen,TOSHA RN ead Christoph Martinez, DRILL SHARPENER OPERATOR DRILL SHARPENER OPERATOR mdr Deedee Marti RN RN mv5 Corrections: (The following items were deleted from the chart) 11:58 10:11 General: Dr. Nieves at bedside to assess pt. . ead ead 13:14 10:54 No special radiology studies were completed ead ead Chart Complete MTDD
--- NOTE | 2016-08-27 06:04 | EEG ---
DATE OF PROCEDURE: 08/25/2016 REFERRING PHYSICIAN: Krystle Rodriguez MD DIAGNOSIS: Syncope. EEG NUMBER: [id number]. HISTORY: Patient is a 56-year-old woman with a history of headaches. She has history of photosensitivity. She was admitted at [facility] for generalized weakness. She passed out for a couple of minutes. This EEG was done to rule out epileptic potential. She is currently taking aspirin, Paxil, Topamax, nortriptyline, etc. TECHNICAL DESCRIPTION: This digital EEG was recorded by 21 scalp, ear and two EKG electrodes and was reviewed in bipolar and referential montages following reformatting in 10-20 international electrode placement system. INTERPRETATION: Patient was noted to be in awake and drowsy states during this EEG. Resting awake background rhythm consisted of 10 Hz alpha activity measuring 15-40 microvolts in amplitude, which was symmetric and reactive to eye opening. Attenuation of posterior dominant rhythm was seen during transition into drowsiness. No sleep was achieved. Hyperventilation could not be performed. Photic stimulation remained unremarkable. EKG revealed normal sinus rhythm. No focal, lateralizing or epileptiform abnormalities were seen. No clinical or electrographic seizures were recorded. CONCLUSION: This EEG in awake and drowsy states is within normal limits.
--- NOTE | 2016-09-08 12:48 | DSES ---
DATE OF ADMISSION: 08/24/2016 DATE OF DISCHARGE: 08/25/2016 PHARMACY BENEFITS COORDINATOR: Ilan Lay MD ELECTROENCEPHALOGRAM (EEG): Read by Ilan Lay MD, showed normal EEG. PRIMARY DISCHARGE DIAGNOSES: 1. Possible side effects of Topamax with photosensitivity and dizziness, off-balance feeling, and paresthesias with generalized weakness. 2. Status post suboccipital craniectomy for cerebellar tonsillar ectopia. 3. History of Chiari malformation with decompression. HOSPITAL COURSE: A 56-year-old female, history of Chiari malformation status post decompression, follows with Dr. Jose Alfredo Ceballos in [place], [place], presented to the emergency room (ER) with complaints of generalized weakness, passing out as she went from the bedroom to the bathroom at 4:30 in the morning. The patient felt very weak. No dizziness at home. Upon returning to the bedroom, she had to crawl on her hands and feet. Her had called emergency medical services (EMS). Systolic pressure was over 100. Fingerstick was 141. As she attempted to sit up, the patient passed out for about 2-3 minutes, according to the , and came to immediately. Electrocardiogram (EKG) was unremarkable. Remained in sinus rhythm. She was brought in to the hospital for admission. MRI of the brain was normal. No acute cerebrovascular accident (CVA). EKG was unremarkable. Dr. Jack, neurologist, was consulted and recommended discontinuation of Topamax, as this could be a possible side effect with off-balance feeling. The patient improved significantly. She was well hydrated. Blood pressure was maintained. Her syncopal episode was thought to be due to Topamax. The patient was safe to be discharged home with outpatient followup with her private neurologist, Dr. Ceballos. DISCHARGE MEDICATIONS: - nortriptyline 25 mg nightly - acetaminophen 650 every 4 as needed for pain - Excedrin Migraine one tablet as needed for migraines - Xanax 0.25 mg as needed for anxiety - aspirin 81 mg daily - paroxetine 20 mg nightly Her Topamax has been discontinued, as her symptoms were felt to be secondary to Topamax. FOLLOWUP ISSUES: Immediate followup with your neurologist in 1-2 weeks after hospital discharge. TIME SPENT ON DISCHARGE: 30 minutes. LABORATORIES ON DISCHARGE: White count 3.9, hemoglobin 11, hematocrit 35, platelet count 145. Sodium 144, potassium 3.8, chloride 112, bicarbonate 25, BUN 10, creatinine 0.67 , glucose of 85, troponin less than 0.02. Urine culture 08/24/2016 contaminated. IMAGING STUDIES: Brain MRI: Small vessel ischemic disease, status post suboccipital craniectomy for cerebellar tonsillar ectopia. MRA of the brain: Unremarkable MR angiography of the brain. Cervical spine MRI without and with contrast shows cervical spondylosis of C3-C4 though C6-C7 levels without spinal cord compression, status post suboccipital craniectomy for cerebellar tonsillar ectopia. No significant change compared to the previous study. Chest x-ray on 08/19/2016 negative PA and lateral chest. No interval change. TIME SPENT ON DISCHARGE: 30 minutes. MTDD
== END 2016-08-25 14:40 | disposition home or self-care (01) | DRG 204 ==
LOC: M ED 05:20 → M ED INP 09:34 → M PCU 14:06
PROVIDERS: ADMIT General Practice; ATTEND General Practice
DX: R55 Syncope and collapse (principal); F32.9 Major depressive disorder, single episode, unspecified; R42 Dizziness and giddiness; T42.6X5A Adverse effect of other antiepileptic and sedative-hypnotic drugs, initial encounter; R53.1 Weakness; R20.2 Paresthesia of skin; Z79.82 Long term (current) use of aspirin; Z79.899 Other long term (current) drug therapy; Z88.2 Allergy status to sulfonamides

== ENCOUNTER → 2017-01-28 | Outpatient (REF) | payer OTHER, MEDICAID ==
[~2017-01-28] MED LIST changes: +BENA25TA10 PO; +PAME25CA PO; -PARO20TA2 PO; +PARO20TA3 PO; +PHEN2SUP PR; +PYRI1TAB5 PO; -PYRI200T5 PO; +TOPA1TAB PO; -TOPA25TA10 PO; +TYLE325T5 PO; +VIIB20TA PO; +[UNRECOGNIZED DRUG - CODE]
[2017-01-28 20:38] LABS: ALBUMIN 3.9 GM/DL (3.2-5.2); ALBUMIN/GLOBULIN RATIO 1.15 (1.00-1.93); ALKALINE PHOSPHATASE 58 U/L (45-117); ALT/SGPT 36 U/L (12-78); ANION GAP 6 MEQ/L (8-16); AST/SGOT 21 U/L (15-37); BILIRUBIN,TOTAL 0.4 MG/DL (0.2-1.0); BLOOD UREA NITROGEN 14 MG/DL (7-18); CALCIUM LEVEL 9.3 MG/DL (8.5-10.1); CARBON DIOXIDE LEVEL 31 MEQ/L (21-32); CHLORIDE LEVEL 102 MEQ/L (98-107); CREATININE FOR GFR 0.68 MG/DL (0.55-1.02); GLOMERULAR FILTRATION RATE > 60.0 (>51); GLUCOSE, FASTING 89 MG/DL (70-105); POTASSIUM SERUM 4.1 MEQ/L (3.5-5.1); SODIUM LEVEL 139 MEQ/L (136-145); TOTAL PROTEIN 7.3 GM/DL (6.4-8.2)
[2017-01-28 20:45] LABS: FOLATE 21.9 NG/ML (>5.4); VITAMIN B12 LEVEL 601 PG/ML (247-911)
[2017-01-28 21:30] LABS: BASO # 0.1 K/mm3 (0.0-0.2); BASO % 0.9 % (0.0-1.0); EOS # 0.1 K/mm3 (0.0-0.50); EOS % 1.1 % (0.0-3.0); LARGE UNSTAINED CELL # 0.1 K/mm3 (0.0-0.4); LARGE UNSTAINED CELL % 1.7 % (0.0-4.0); LYMPH # 1.8 K/mm3 (1.5-4.5); LYMPH % 28.5 % (24.0-44.0); MEAN CORPUSCULAR HEMOGLOBIN 31.8 pg (27.0-33.0); MEAN CORPUSCULAR HGB CONC 33.6 g/dl (32.0-36.5); MEAN CORPUSCULAR VOLUME 94.7 fl (80.0-96.0); MONO # 0.3 K/mm3 (0.0-0.8); MONO % 4.6 % (0.0-5.0); NEUTROPHILS % 63.1 % (36.0-66.0); PLATELET COUNT, AUTOMATED 207 k/mm3 (150-450); RED CELL DISTRIBUTION WIDTH 12.7 % (11.5-14.5); WHITE BLOOD COUNT 6.4 K/mm3 (4.0-10.0)
== END ==
LOC: M SFHCLERA 14:59
PROVIDERS: ATTEND Family Medicine
DX: R42 Dizziness and giddiness (principal)

== ENCOUNTER 2017-02-03 10:57 | Observation (INO) | payer MEDICAID, OTHER ==
[~2017-02-03] VITALS: Ht 160 cm; Wt 63.7 kg
[~2017-02-03 10:57] MED LIST changes: -BENA25TA10 PO; -PHEN2SUP PR; -VIIB20TA PO; -[UNRECOGNIZED DRUG - CODE]
[2017-02-03] MEDS ORDERED: [UNRECOGNIZED DRUG - CODE] (11:08)
--- NOTE | 2017-02-03 11:38 | REP ---
CT Head without contrast HISTORY: Infarction COMPARISON: 08/24/2016 The patient is status post midline suboccipital craniectomy. There is no intraparenchymal hemorrhage, acute infarct, mass or midline shift. The ventricular system is normal in appearance. There is no extra cerebral collection. There is no fracture. The visualized sinuses are clear. IMPRESSION: There is no intracranial lesion. Signed by Suhail Worthy MD 02/03/2017 11:30 A
[2017-02-03 11:58] LABS: BASO % 0.9 % (0.0-1.0); EOS # 0.1 K/mm3 (0.0-0.50); EOS % 1.2 % (0.0-3.0); LARGE UNSTAINED CELL # 0.1 K/mm3 (0.0-0.4); LARGE UNSTAINED CELL % 1.8 % (0.0-4.0); LYMPH # 1.9 K/mm3 (1.5-4.5); LYMPH % 29.6 % (24.0-44.0); MEAN CORPUSCULAR HEMOGLOBIN 31.7 pg (27.0-33.0); MEAN CORPUSCULAR HGB CONC 33.8 g/dl (32.0-36.5); MEAN CORPUSCULAR VOLUME 93.8 fl (80.0-96.0); MONO # 0.3 K/mm3 (0.0-0.8); MONO % 4.7 % (0.0-5.0); NEUTROPHILS # 3.8 K/mm3 (1.8-7.7); NEUTROPHILS % 61.8 % (36.0-66.0); PLATELET COUNT, AUTOMATED 210 k/mm3 (150-450); RED CELL DISTRIBUTION WIDTH 12.8 % (11.5-14.5); WHITE BLOOD COUNT 6.2 K/mm3 (4.0-10.0)
--- NOTE | 2017-02-03 12:18 | REP ---
Chest one-view HISTORY: Infarction Comparison: 08/24/2016 The lungs are clear. The heart is normal in size. The pulmonary vasculature is normal in appearance. Impression: No acute disease. Signed by Suhail Worthy MD 02/03/2017 12:09 P
[2017-02-03 12:41] LABS: ANION GAP 4 MEQ/L (8-16); BLOOD UREA NITROGEN 8 MG/DL (7-18); CALCIUM LEVEL 9.4 MG/DL (8.5-10.1); CARBON DIOXIDE LEVEL 32 MEQ/L (21-32); CHLORIDE LEVEL 103 MEQ/L (98-107); CREATININE FOR GFR 0.71 MG/DL (0.55-1.02); GLOMERULAR FILTRATION RATE > 60.0 (>51); GLUCOSE, FASTING 99 MG/DL (70-105); POTASSIUM SERUM 4.1 MEQ/L (3.5-5.1); SODIUM LEVEL 139 MEQ/L (136-145)
[2017-02-03 14:31] LABS: INR 1.03
--- NOTE | 2017-02-03 16:11 | REP ---
MRI BRAIN WITHOUT CONTRAST: HISTORY: TIAs. COMPARISON: 08/24/2016 Areas of increased signal intensity on T2-weighted images are present in the subcortical white matter. This represents small vessel ischemic disease. There is no intraparenchymal hemorrhage, infarct, mass or midline shift. The ventricular system is normal in appearance. There is no extracerebral collection. The patient is status post suboccipital craniectomy for cerebellar tonsillar ectopia. The sinuses are clear. IMPRESSION: 1. Small vessel ischemic disease. 2. The patient is status post suboccipital craniectomy for cerebellar tonsillar ectopia. Signed by Suhail Worthy MD 02/03/2017 04:13 P
--- NOTE | 2017-02-03 16:19 | REP ---
MRI LUMBAR SPINE WITHOUT CONTRAST: HISTORY: Left leg weakness. Decreased signal intensity on T2-weighted images is present in the L2-3 through L5-S1 intervertebral discs. The L3-4 through L5-S1 intervertebral discs are decreased in height. These findings are consistent with disc degeneration. There is no disc bulge or herniation at the L1-2 level. The L1 nerves exit the neural foramina without compression. A diffuse disc bulge is present at the L2-3 level. There is minimal compression of the thecal sac. There is hypertrophy of the posterior articulating facets. The L2 nerves exit the neural foramina without compression. A diffuse disc bulge is present at the L3-4 level. There is minimal compression of the thecal sac. There is hypertrophy of the ligamenta flava and posterior articulating facets. The L3 nerves exit the neural foramina without compression. A diffuse disc bulge is present at the L4-5 level. There is minimal compression of the thecal sac. There is hypertrophy of the posterior articulating facets. The L4 nerves exit the neural foramina without compression. A diffuse disc bulge and small disc protrusion central and eccentric to the left are present at the L5-S1 level. There is minimal compression of the thecal sac and left S1 nerve as it exits the thecal sac. There is hypertrophy of the posterior articulating facets. The L5 nerves exit the neural foramina without compression. The conus medullaris is normal in appearance terminating at the level of the L1-2 intervertebral disc. Normal signal intensity is present in the lumbar vertebral bodies. IMPRESSION: 1. Diffuse disc bulges at the L2-3 through L4-5 levels with minimal thecal sac compression. 2. Diffuse disc bulge and small disc protrusion at the L5-S1 level with minimal compression of the thecal sac and left S1 nerve as it exits the thecal sac. Signed by Suhail Worthy MD 02/03/2017 04:45 P
--- NOTE | 2017-02-03 16:23 | REP ---
MRA BRAIN WITHOUT CONTRAST: HISTORY: TIA. MRA BRAIN WITHOUT CONTRAST: HISTORY: Infarction. COMPARISON: 08/24/2016 3D [id number] MR angiography was performed at the level of the [place]. There is no aneurysm, arteriovenous malformation or atherosclerotic lesion. Major intracranial vessels are patent. The vertebral arteries are equal in size. IMPRESSION:Normal MRA brain. Signed by Suhail Worthy MD 02/03/2017 04:44 P
[2017-02-03] MEDS ORDERED: VIIB20TA PO (16:34)
[2017-02-03] MEDS ORDERED: ACETAMINOPHEN TAB 650MG DOSE (2X325MG) PO PRN (16:45)
[2017-02-03] MEDS ORDERED: EXCEDRIN MIGRAINE TABLET PO PRN (16:45)
[2017-02-03] MEDS ORDERED: ALPRAZolam 0.25 MG TAB PO PRN (16:45)
--- NOTE | 2017-02-03 17:24 | HPEPDOC ---
General Date of Admission Feb 03, 2017 at 16:16 Primary Care Physician: ROSALINA CORTES MD Chief Complaint The patient is a 56-year-old female admitted with a reason for visit of Tia ( Transient Ischemic Attack). Source: Patient Timing/Duration: Unsure, Day(s) (one) Severity: Moderate History of Present Illness 56 y/o female with past medical history of TIA, chiari malformation s/p decompression, migrane h/a, PFO, depression who presents today with CC of left leg, arm, hand and cheek numbness and weakness that began one day ago, the pt states that she should have come to the ED yesterday when she experienced it but decided to wait it out, her symptoms abated last evening after lasting much of the day, this morning she awoke and was doing paperwork in her office and when she walked out of her room she acutely experienced left leg weakness and left arm numbness that resulted in her "gently lowering" herself to the floor. The pt states that she had generalized weakness. She has been the ED numerous times for similar weak episodes and so far workup for TIA/stroke recently has been neg. The pt was recently seen/admitted here in 08/2016 for weakness/syncope that resulted in an admission and the culprit was thought to be her topamax as per neurology's thoughts-since it has SE of causing dizzyness, of note MRI on that admission was also neg. for any acute cerebrovascular accident, EKG also remained unremarkable . She states she did not have urinary or bowel incontinence today or one day ago w/onset of symptoms but does state that one week ago she had one episode of wetting herself and she hand't even realized it. Denies numbness of inner thighs or groin area. She also is complaining of new onset right "kidney" pain thats been bothering her for the past few days, she denies blood in urine or stool, pain w/urination or defecation. She states she has a frontal headache now and the lights are bothering her and making it worse, she also states that her vision is blurred right now which she sometimes experiences. She's also experiencing some mid-sternal sharp chest pain that is intermittent, not associated with inspiration, palpation of her chest or worsened with physical exertion, she states she often feels this CP and that is must "be my PFO causing the pain". Denies SOB or cough, fevers, night sweats but does admit to generalized muscle aches and weakness worsened in the past few weeks. Home Medications Scheduled (Viibryd) 20 Mg Tab, 20 MG PO QPM, (Reported) TAKES WITH DINNER Aspirin (Aspir-81) 81 Mg Tab, 81 MG PO DAILY, (Reported) Scheduled PRN Acetaminophen (Tylenol) 325 Mg Tab, 650 MG PO Q4H PRN for PAIN, (Reported) Acetaminophen/Aspirin/Caffein (Excedrin Migraine 250-250-65 mg) 1 Tab Tab, 1 TAB PO for HEADACHE, (Reported) Alprazolam (Xanax) 0.25 Mg Tab, 0.25 MG PO PRN PRN for ANXIETY, (Reported) Allergies Coded Allergies: Celecoxib (Verified Allergy, Unknown, 08/24/16) Sulfa Drugs (Unverified Allergy, Unknown, RASH, 10/23/12) Sulfa Drugs Cross Reactors (Unverified Allergy, Unknown, RASH, 10/23/12) Past Medical History Medical History chiari malformation depression hx of migrane PFO-pt refuses recommendation by her bight maker for closure Surgical History chiari decompression tonsillectomy tubal ligation Family History Significant Family History: No pertinent family hx Social History * Smoker: Denies Alcohol: Denies Drugs: denies Review of Symptoms Constitutional: Reports: Malaise, Weakness, Fatigue, Lethargy, Denies: Chills, Fever, Night Sweats, Weight Loss Eyes: Reports: Pain, Vision change (blurred), Denies: Conjunctivae inflammation, Eyelid inflammation ENT: Reports: Head Aches (frontal), Denies: Ear Pain, Dysphagia, Sinus Congestion Skin: Denies: Rash, Lesions, Jaundice, Bruising, Itching Pulmonary: Reports: Dyspnea, Pleuritic Chest Pain, Denies: Cough Cardiovascular: Reports: Chest Pain, Lt Headedness, Denies: Palpitations, Orthopnea, Paroxysmal Noc. Dyspnea, Edema Gastrointestinal: Reports: Nausea, Denies: Vomiting, Abdominal Pain, Diarrhea, Constipation, Melena, Hematochezia Genitourinary: Reports: Incontinence, Denies: Dysuria, Frequency Hematologic: Denies: Bruising Musculoskeletal: Denies: Neck Pain Neurological: Reports: Weakness, Numbness, Incoordination, Denies: Change in speech, Confusion, Seizures Psych: Reports: Mood Normal Physical Examination General Exam: Positive: Alert, Cooperative, No Acute Distress Eye Exam: Positive: PERRLA, Conjunctiva & lids normal, EOMI, Negative: Sclera icteric, Ptosis ENT Exam: Positive: Atraumatic, Mucous membr. moist/pink, Pharynx Normal, Tongue Midline, Negative: Pharyngeal Edema Neck Exam: Positive: Supple, +2 carotid pulse wo bruit, Negative: thyromegaly, Lymphadenopathy Chest Exam: Positive: Clear to auscultation, Normal air movement, Negative: Rales, Rhonchi, Wheezing, Diminished Heart Exam: Positive: Rate Normal, Regular Rhythm, Normal S1, Normal S2, Negative: Gallops, Murmurs, Rubs Telemetry: Positive: No significant arrhythmia Abdomen Exam: Positive: Normal bowel sounds, Soft, Negative: Tenderness, Hepatospenomegaly Extremity Exam: Positive: Normal pulses, Negative: Clubbing, Cyanosis, Edema, Tenderness, Swelling Skin Exam: Positive: Nl turgor and temperature Neuro Exam: Positive: Normal Speech, Strength at 5/5 X4 ext, Normal Tone, Sensation Intact, Cranial Nerves 3-12 NL, Reflexes 2+, Negative: Normal Gait ( gait disturbance, weak both legs) Psych Exam: Positive: Mental status NL, Memory Intact, Oriented x 3, Negative: Anxiety Vital Signs Vital Signs Date Time Temp Pulse Resp B/P (MAP) Pulse Ox O2 Delivery O2 Flow Rate FiO2 02/03/17 16:57 69 97 02/03/17 16:45 128/72 (90) 02/03/17 10:58 99.1 18 Room Air Laboratory Data Labs 24H Laboratory Tests 2 02/03/17 11:17: White Blood Count 6.2, Red Blood Count 4.82, Hemoglobin 15.3, Hematocrit 45.2, Mean Corpuscular Volume 93.8, Mean Corpuscular Hemoglobin 31.7, Mean Corpuscular Hemoglobin Concent 33.8, Red Cell Distribution Width 12.8, Platelet Count 210, Neutrophils (%) (Auto) 61.8, Lymphocytes (%) (Auto) 29.6, Monocytes ( %) (Auto) 4.7, Eosinophils (%) (Auto) 1.2, Basophils (%) (Auto) 0.9, Neutrophils # (Auto) 3.8, Lymphocytes # (Auto) 1.9, Monocytes # (Auto) 0.3, Eosinophils # (Auto) 0.1, Basophils # (Auto) 0.0, Large Unclassified Cells % 1.8 , Large Unclassified Cells # 0.1, Anion Gap 4L, Glomerular Filtration Rate > 60.0, Blood Urea Nitrogen 8, Creatinine 0.71, Sodium Level 139, Potassium Level 4.1, Chloride Level 103, Carbon Dioxide Level 32, Calcium Level 9.4, Total Creatine Kinase 71, Creatine Kinase MB 1.0, Creatine Kinase MB Relative Index 1.40, Troponin I < 0.02 02/03/17 11:59: Bedside Glucose (Misc Panel) 93 02/03/17 14:07: Prothrombin Time 13.6, Prothromb Time International Ratio 1.03, Activated Partial Thromboplast Time 28.6 CBC/BMP Laboratory Tests 02/03/17 11:17 Red Blood Count 4.82, Mean Corpuscular Volume 93.8, Mean Corpuscular Hemoglobin 31.7, Mean Corpuscular Hemoglobin Concent 33.8, Red Cell Distribution Width 12.8 , Neutrophils (%) (Auto) 61.8, Lymphocytes (%) (Auto) 29.6, Monocytes (%) (Auto ) 4.7, Eosinophils (%) (Auto) 1.2, Basophils (%) (Auto) 0.9, Neutrophils # (Auto ) 3.8, Lymphocytes # (Auto) 1.9, Monocytes # (Auto) 0.3, Eosinophils # (Auto) 0.1, Basophils # (Auto) 0.0, Calcium Level 9.4, Total Creatine Kinase 71 Problems (1) TIA (transient ischemic attack) Status: Chronic Response to Treatment: Stable Problem Text: Pt was seen via telemedicine in the ER by neurology-not a candidate for TPA Benign neuro exam, CN 2-12 intact, sensation, reflexes, strength b/l upper and lower extremity all intact/preserved PERRLA, EOMI Brain MRA, MRI, head CT all neg. for intracranial pathology CXR is NAD Have spoken to neurologist organizational effectiveness director, appreciate the recommendations, would suggest outpt f/u with her primary neurologist, also suggested increasing her nortryptyline to 50 mg., or adding verapamil 40mg to help w/ sx of this complex migrane. The pt refused the nortryptyline, stated it made her sleepy and that she stopped taking her home dose months ago because her neurologist said to., will attempt to offer verapamil. It was explained to the patient and her that our mri, mra, ct head and cxr were neg. for acute disease, and that her MRI showed the below findings., explained that we would observe for 24 hours Pt will be admitted for observation Lumbar spine MRI shows: IMPRESSION: 1. Diffuse disc bulges at the L2-3 through L4-5 levels with minimal thecal sac compression. 2. Diffuse disc bulge and small disc protrusion at the L5-S1 level with minimal compression of the thecal sac and left S1 nerve as it exits the thecal sac. Neuro checks q4h. Continue to monitor EKG in ED NSR. Will hold on TIA workup for now given symptoms and negative imaging-will await neurology recommendation to proceed further (2) Syncope and collapse Status: Acute Problem Text: will order orthostatics brain MRI, MRA and head CT neg for intracranial pathology CXR w/o disease MRI L-spine IMPRESSION: 1. Diffuse disc bulges at the L2-3 through L4-5 levels with minimal thecal sac compression. 2. Diffuse disc bulge and small disc protrusion at the L5-S1 level with minimal compression of the thecal sac and left S1 nerve as it exits the thecal sac. Will continue to monitor-pt admitted for 24 hour observation EKG in ED NSR, no concern for arrhythmiagenic etiology (3) Migraine Status: Chronic Response to Treatment: Stable Problem Text: Have spoken to neurologist organizational effectiveness director, appreciate the recommendations, would suggest outpt f/u with her primary neurologist, also suggested increasing her nortryptyline to 50 mg., or adding verapamil 40mg to help w/ sx of this complex migrane. The pt refused the nortryptyline, stated it made her sleepy and that she stopped taking her home dose months ago because her neurologist said to., will attempt to offer verapamil. pt does have frontal headache now and states lights are making it worse, she wears a baseball cap in the exam room to shield her eyes stable, continue to monitor (4) Depression Status: Chronic Response to Treatment: Stable Problem Text: stable vilazodone-c/w home med (5) PFO (patent foramen ovale) Status: Chronic Response to Treatment: Stable Problem Text: stable pt follows with cardiology- apparently has refused their recommendation for closure (6) Chiari malformation Status: Chronic Response to Treatment: Stable Problem Text: stable s/p suboccipital craniectomy for cerebellar tonsillar ectopia (7) DVT prophylaxis Status: Acute Response to Treatment: Stable Problem Text: scd teds Plan / VTE VTE Prophylaxis Ordered?: Yes GME ATTESTATION GME ATTESTATION My preceptor for this patient encounter was physically present in the building during the encounter and was fully available. As needed, all aspects of the patient interview, examination, medical decision making process, and medical care plan development were reviewed and approved by the preceptor. Preceptor is aware and concurs with the plan as stated in the body of this note and will attest to such by his/her cosignature. ATTENDING NOTE I, Yifan Epps, have both independently examined this patient as well as reviewed the documentation. I have discussed in detail with the resident the findings and plan of treatment as documented in the residents documentation. I will continue to follow the patient and offer further guidance to the patients care as necessary during this hospital stay. VIRGINIA MCGEE DO Feb 03, 2017 17:24 YIFAN EPPS MD Feb 19, 2017 17:16
[2017-02-03] MEDS: VILAZODONE 20MG TABLET (VIIBRYD) PO SCH (18:00)
[2017-02-03 18:45] VITALS: BP 133/63
[2017-02-03] MEDS ORDERED: VERAPAMIL 40 MG TAB PO ONE (18:45)
[2017-02-03 21:14] VITALS: BP 133/63
[2017-02-03] MEDS ORDERED: SLF 3 ML SYR IV PRN (22:15)
[2017-02-03 23:59] VITALS: BP 114/53
[2017-02-04] VITALS (7 sets, daily range): BP systolic 89–118; BP diastolic 46–55
[2017-02-04] MEDS: SLF 3 ML SYR IV SCH ×3 (05:10→21:24)
[2017-02-04 05:33] LABS: BASO # 0.1 K/mm3 (0.0-0.2); BASO % 0.8 % (0.0-1.0); EOS # 0.1 K/mm3 (0.0-0.50); EOS % 1.5 % (0.0-3.0); LARGE UNSTAINED CELL # 0.1 K/mm3 (0.0-0.4); LARGE UNSTAINED CELL % 1.8 % (0.0-4.0); LYMPH # 2.3 K/mm3 (1.5-4.5); LYMPH % 34.1 % (24.0-44.0); MEAN CORPUSCULAR HEMOGLOBIN 31.8 pg (27.0-33.0); MEAN CORPUSCULAR HGB CONC 33.8 g/dl (32.0-36.5); MONO # 0.4 K/mm3 (0.0-0.8); MONO % 5.8 % (0.0-5.0); NEUTROPHILS # 3.7 K/mm3 (1.8-7.7); PLATELET COUNT, AUTOMATED 217 k/mm3 (150-450); RED CELL DISTRIBUTION WIDTH 12.7 % (11.5-14.5); WHITE BLOOD COUNT 6.6 K/mm3 (4.0-10.0)
[2017-02-04 05:53] LABS: ALBUMIN 3.6 GM/DL (3.2-5.2); ALBUMIN/GLOBULIN RATIO 1.06 (1.00-1.93); ALKALINE PHOSPHATASE 48 U/L (45-117); ALT/SGPT 28 U/L (12-78); ANION GAP 6 MEQ/L (8-16); AST/SGOT 16 U/L (15-37); BILIRUBIN,TOTAL 0.7 MG/DL (0.2-1.0); BLOOD UREA NITROGEN 11 MG/DL (7-18); CALCIUM LEVEL 8.9 MG/DL (8.5-10.1); CARBON DIOXIDE LEVEL 30 MEQ/L (21-32); CHLORIDE LEVEL 102 MEQ/L (98-107); CREATININE FOR GFR 0.77 MG/DL (0.55-1.02); GLOMERULAR FILTRATION RATE > 60.0 (>51); GLUCOSE, FASTING 95 MG/DL (70-105); MAGNESIUM LEVEL 2.3 MG/DL (1.8-2.4); POTASSIUM SERUM 4.5 MEQ/L (3.5-5.1); SODIUM LEVEL 138 MEQ/L (136-145)
--- NOTE | 2017-02-04 07:30 | ECGEPIP ---
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
[2017-02-04] MEDS: ASPIRIN 81 MG ENTERIC TAB PO SCH (08:29)
--- NOTE | 2017-02-04 12:46 | IPNPDOC ---
Subjective Date Seen The patient was seen on 02/04/17. Subjective Chief Complaint/HPI The patient is a 56-year-old female admitted with a reason for visit of Tia ( Transient Ischemic Attack). General: Reports: Fatigue, Malaise, Normal Appetite, Denies: Chills, Night Sweats Constitutional: Reports: Weakness, Fatigue, Denies: Chills, Fever, Malaise, Night Sweats Eyes: Denies: Pain, Vision change, Conjunctivae inflammation Skin: Denies: Rash, Lesions Pulmonary: Denies: Dyspnea, Cough Cardiovascular: Denies: Chest Pain, Palpitations, Orthopnea, Paroxysmal Noc. Dyspnea, Edema Gastrointestinal: Denies: Nausea, Vomiting, Abdominal Pain Genitourinary: Denies: Dysuria Musculoskeletal: Denies: Neck Pain Neurological: Reports: Weakness Psych: Reports: Mood Normal Objective Physical Examination General Exam: Positive: Alert, Cooperative, No Acute Distress Eye Exam: Positive: PERRLA, Conjunctiva & lids normal, EOMI, Negative: Sclera icteric, Ptosis ENT Exam: Positive: Atraumatic, Mucous membr. moist/pink, Pharynx Normal, Tongue Midline, Negative: Pharyngeal Edema Neck Exam: Positive: Supple, +2 carotid pulse wo bruit, Negative: thyromegaly, Lymphadenopathy Chest Exam: Positive: Clear to auscultation, Normal air movement, Negative: Rales, Rhonchi, Wheezing, Diminished Heart Exam: Positive: Rate Normal, Regular Rhythm, Normal S1, Normal S2, Negative: Gallops, Murmurs, Rubs Telemetry: Positive: No significant arrhythmia Abdomen Exam: Positive: Normal bowel sounds, Soft, Negative: Tenderness, Hepatospenomegaly Extremity Exam: Positive: Normal pulses, Negative: Clubbing, Cyanosis, Edema, Tenderness, Swelling Skin Exam: Positive: Nl turgor and temperature Neuro Exam: Positive: Normal Speech, Strength at 5/5 X4 ext, Normal Tone, Sensation Intact, Cranial Nerves 3-12 NL, Reflexes 2+, Negative: Normal Gait Psych Exam: Positive: Mental status NL, Memory Intact, Oriented x 3, Negative: Anxiety Assessment /Plan Problems (1) Weakness Problem Text: Pt states this AM she felt weak again in her legs and felt like she would fall because of it, was noted that her bp was a bit soft at 92/46 at 8 AM Currently does not have weakness Will check orthostatics C/w Neuro checks q4h continue to monitor will order orthostatics as pt. felt weak in her legs this morning and was noted to have soft BP No concerning events overnight on telemetry The pt was seen via telemedicine in the ER one day ago by neurology- deemed not a candidate for TPA In the ED she has a benign neuro exam, CN 2-12 intact, sensation, reflexes, strength b/l upper and lower extremity all intact/preserved PERRLA, EOMI Her brain MRA, MRI, head CT all neg. for intracranial pathology CXR is NAD Did speak one day ago to neurologist control equipment electrician, appreciate the recommendations, they suggested outpt f/u with her primary neurologist, also suggested increasing her nortryptyline to 50 mg., or adding verapamil 40mg to help w/ sx of this complex migrane. The pt however refused the nortryptyline, stated it made her sleepy and that she stopped taking her home dose months ago because her neurologist said to., She was also offered verapamil at the recommendation of neurology which can also help with complex migrane symptoms, however she refused it because she was afraid it would interfere with her BP- will attempt to offer verapamil since we did have discussion w/pt today about the medication and its usage In the ED it was explained to the patient and her that our mri, mra, ct head and cxr were neg. for acute disease, and that her MRI showed the below findings., explained that we would observe for 24 hours Lumbar spine MRI shows: IMPRESSION: 1. Diffuse disc bulges at the L2-3 through L4-5 levels with minimal thecal sac compression. 2. Diffuse disc bulge and small disc protrusion at the L5-S1 level with minimal compression of the thecal sac and left S1 nerve as it exits the thecal sac. (2) Migraine Status: Chronic Response to Treatment: Stable Problem Text: Pt refused Verapamil one day ago because she states she thought it may interfere w/ her low BP Will attempt to offer verapamil today after conversation w/her explaining the medication and its usage Past: Have spoken to neurologist control equipment electrician, appreciate the recommendations, would suggest outpt f/u with her primary neurologist, also suggested increasing her nortryptyline to 50 mg., or adding verapamil 40mg to help w/ sx of this complex migrane. The pt refused the nortryptyline, stated it made her sleepy and that she stopped taking her home dose months ago because her neurologist said to., will attempt to offer verapamil. pt does have frontal headache now and states lights are making it worse, she wears a baseball cap in the exam room to shield her eyes stable, continue to monitor (3) Depression Status: Chronic Response to Treatment: Stable Problem Text: stable vilazodone-c/w home med (4) PFO (patent foramen ovale) Status: Chronic Response to Treatment: Stable Problem Text: stable pt follows with cardiology- apparently has refused their recommendation for closure (5) Chiari malformation Status: Chronic Response to Treatment: Stable Problem Text: stable s/p suboccipital craniectomy for cerebellar tonsillar ectopia (6) DVT prophylaxis Status: Acute Response to Treatment: Stable Problem Text: scd teds Plan/VTE VTE Prophylaxis Ordered?: Yes VS, I&O, 24H, Fishbone Vital Signs/I&O Vital Signs Date Time Temp Pulse Resp B/P (MAP) Pulse Ox O2 Delivery O2 Flow Rate FiO2 02/04/17 08:20 98.6 71 18 92/46 (61) 97 Room Air I&O- Last 24 Hours up to 6 AM 02/04/17 06:00 Intake Total 540 ml Output Total 1000 ml Balance -460 ml Laboratory Data 24H LABS Laboratory Tests 2 02/03/17 14:07: Prothrombin Time 13.6, Prothromb Time International Ratio 1.03, Activated Partial Thromboplast Time 28.6 02/04/17 05:16: White Blood Count 6.6, Red Blood Count 4.57, Hemoglobin 14.5, Hematocrit 43.0, Mean Corpuscular Volume 94.0, Mean Corpuscular Hemoglobin 31.8, Mean Corpuscular Hemoglobin Concent 33.8, Red Cell Distribution Width 12.7, Platelet Count 217, Neutrophils (%) (Auto) 56.0, Lymphocytes (%) (Auto) 34.1, Monocytes ( %) (Auto) 5.8H, Eosinophils (%) (Auto) 1.5, Basophils (%) (Auto) 0.8, Neutrophils # (Auto) 3.7, Lymphocytes # (Auto) 2.3, Monocytes # (Auto) 0.4, Eosinophils # (Auto) 0.1, Basophils # (Auto) 0.1, Large Unclassified Cells % 1.8 , Large Unclassified Cells # 0.1, Anion Gap 6L, Glomerular Filtration Rate > 60.0, Blood Urea Nitrogen 11, Creatinine 0.77, Sodium Level 138, Potassium Level 4.5, Chloride Level 102, Carbon Dioxide Level 30, Calcium Level 8.9, Aspartate Amino Transf (AST/SGOT) 16, Alanine Aminotransferase (ALT/SGPT) 28, Alkaline Phosphatase 48, Total Bilirubin 0.7, Total Protein 7.0, Albumin 3.6, Magnesium Level 2.3, Albumin/Globulin Ratio 1.06 CBC/BMP Laboratory Tests 02/04/17 05:16 Red Blood Count 4.57, Mean Corpuscular Volume 94.0, Mean Corpuscular Hemoglobin 31.8, Mean Corpuscular Hemoglobin Concent 33.8, Red Cell Distribution Width 12.7 , Neutrophils (%) (Auto) 56.0, Lymphocytes (%) (Auto) 34.1, Monocytes (%) (Auto ) 5.8 H, Eosinophils (%) (Auto) 1.5, Basophils (%) (Auto) 0.8, Neutrophils # ( Auto) 3.7, Lymphocytes # (Auto) 2.3, Monocytes # (Auto) 0.4, Eosinophils # (Auto ) 0.1, Basophils # (Auto) 0.1, Calcium Level 8.9, Aspartate Amino Transf (AST/ SGOT) 16, Alanine Aminotransferase (ALT/SGPT) 28, Alkaline Phosphatase 48, Total Bilirubin 0.7, Total Protein 7.0, Albumin 3.6 GME ATTESTATION GME ATTESTATION My preceptor for this patient encounter was physically present in the building during the encounter and was fully available. As needed, all aspects of the patient interview, examination, medical decision making process, and medical care plan development were reviewed and approved by the preceptor. Preceptor is aware and concurs with the plan as stated in the body of this note and will attest to such by his/her cosignature. VIRGINIA MCGEE DO Feb 04, 2017 12:46 TRISTIAN CONLEY Feb 05, 2017 13:55
[2017-02-04] MEDS: VILAZODONE 20MG TABLET (VIIBRYD) PO SCH (19:25)
[2017-02-05] VITALS: BP_SYST 107; BP_SYST 125; BP_SYST 99; BP_DIAS 62; BP_DIAS 64; BP_DIAS 65
[2017-02-05] MEDS ORDERED: CALCIUM CARBONATE 500 MG CHEW U/D PO PRN (01:45)
[2017-02-05 03:35] VITALS: BP_SYST 114; BP_SYST 116; BP_SYST 121; BP_DIAS 58; BP_DIAS 65; BP_DIAS 70
[2017-02-05] MEDS: SLF 3 ML SYR IV SCH (06:00)
[2017-02-05 06:35] LABS: BASO % 0.6 % (0.0-1.0); EOS # 0.1 K/mm3 (0.0-0.50); EOS % 1.4 % (0.0-3.0); LARGE UNSTAINED CELL # 0.1 K/mm3 (0.0-0.4); LARGE UNSTAINED CELL % 2.3 % (0.0-4.0); LYMPH % 33.6 % (24.0-44.0); MEAN CORPUSCULAR HEMOGLOBIN 31.6 pg (27.0-33.0); MEAN CORPUSCULAR HGB CONC 33.9 g/dl (32.0-36.5); MEAN CORPUSCULAR VOLUME 93.3 fl (80.0-96.0); MONO # 0.4 K/mm3 (0.0-0.8); MONO % 6.7 % (0.0-5.0); NEUTROPHILS # 3.1 K/mm3 (1.8-7.7); NEUTROPHILS % 55.4 % (36.0-66.0); PLATELET COUNT, AUTOMATED 191 k/mm3 (150-450); RED CELL DISTRIBUTION WIDTH 12.9 % (11.5-14.5); WHITE BLOOD COUNT 5.6 K/mm3 (4.0-10.0)
[2017-02-05 07:04] LABS: ALBUMIN 3.3 GM/DL (3.2-5.2); ALBUMIN/GLOBULIN RATIO 1.03 (1.00-1.93); ALKALINE PHOSPHATASE 43 U/L (45-117); ALT/SGPT 26 U/L (12-78); ANION GAP 3 MEQ/L (8-16); AST/SGOT 12 U/L (15-37); BILIRUBIN,TOTAL 0.5 MG/DL (0.2-1.0); BLOOD UREA NITROGEN 12 MG/DL (7-18); CALCIUM LEVEL 8.6 MG/DL (8.5-10.1); CARBON DIOXIDE LEVEL 29 MEQ/L (21-32); CHLORIDE LEVEL 104 MEQ/L (98-107); CREATININE FOR GFR 0.65 MG/DL (0.55-1.02); GLOMERULAR FILTRATION RATE > 60.0 (>51); GLUCOSE, FASTING 98 MG/DL (70-105); MAGNESIUM LEVEL 2.1 MG/DL (1.8-2.4); POTASSIUM SERUM 3.9 MEQ/L (3.5-5.1); SODIUM LEVEL 136 MEQ/L (136-145); TOTAL PROTEIN 6.5 GM/DL (6.4-8.2)
[2017-02-05 08:00] VITALS: BP_SYST 100; BP_SYST 102; BP_SYST 104; BP_DIAS 58; BP_DIAS 59; BP_DIAS 69
[2017-02-05] MEDS: ASPIRIN 81 MG ENTERIC TAB PO SCH (09:13)
--- NOTE | 2017-02-05 10:09 | DS.PDOC ---
Discharge Summary General Date of Admission Feb 03, 2017 at 16:16 Date of Discharge 02-05-17 Discharge Summary PROCEDURES PERFORMED DURING STAY: None ADMITTING DIAGNOSES: 1. Weakness, rule out CVA/TIA 2. migrane 3. depression 4. hx of PFO 5. chiari malformation s/p suboccipital cranietomy for cerebellar tonsillar ectopia DISCHARGE DIAGNOSES: 1. Complex Migraine 2. Dizziness w/fall 3. Depression 4. PFO 5. Chiari malformation COMPLICATIONS/CHIEF COMPLAINT: Complex Migrane HISTORY OF PRESENT ILLNESS: 56 y/o female with past medical history presented on 02-03-17 to the ED w/ with CC of left leg, arm, hand and cheek numbness and weakness that began one day prior. HOSPITAL COURSE: During the course of the stay the pt. had undergone head CT, Brain MRI and MRA that were negative for signs of intracranial pathology to account for her symptoms, she also underwent a CXR that was unremarkable and with no acute findings nor disease. The pt underwent lumbar spine MRI that showed some lower lumbar disc bulges and a small protrusion w/ some compression of thecal sac (as outlined in imaging report below), however it was not felt that these symptoms were accounted for by such radiographical findings. The pt did have an episode the day prior to d/c where she awoke in the morning and went to the bathroom, was when she exprienced the acute onset of b/l leg weakness of which she then became dizzy, the episode quickly abated. She was noted to have a low blood pressure of at the time of the event and as such orthostatic vital signs were taken and the pt was observed for another 24 hours. Pt's BP at lowest was measured on this visit at 89/52 but for the majority of her stay had remained normotensive in the 100 middle to teens systolically and 50-60's diastolically. Orthostatic vital signs were negative and pt was explained on day of d/c that her BP may go a little lower in the morning than her baseline, she was instructed to rise out of bed slowly when she first awakens. She was also strongly encouraged to f/u with her neurologist within 7 days of d/c as this would likely be a chronic management regime for a solution to the complex migraine symptoms rather than an acute in-patient hospital process. The pt was also admitted and observed on a monitored bed, there were no cardiac events capture to account for her symptoms. PT was offered verapamil inpt., at the recommendation of the neurologist who was conductor freight the day she presented to the ED, as this can help with symptoms of complex migraine, the pt refused to take the medication. On day of d/c the pt stated that she felt well and did not have another episode of weakness or dizziness that she had experienced the day prior. DISCHARGE MEDICATIONS: Please see below. ALLERGIES: Please see below. PHYSICAL EXAMINATION ON DISCHARGE: VITAL SIGNS: Please see below. GENERAL: pleasant, conversant, sitting up in bed, in NAD, feeling well HEENT: supple, PERRLA, EOMI, neck supple, tracha midline, nares patent b/l, moist mucus membranes, tongue midline CARDIOVASCULAR EXAMINATION: normal s1 and s2, no murmurs, rubs or gallops appreciated, RRR RESPIRATORY EXAMINATION: no crackles, rhonchi or rales appreciated, good air expansion and effort b/l ABDOMINAL EXAMINATION: soft, non-distended, non-tender, no rebound guardng or distension, nabsx4 EXTREMITIES: no cyanosis, clubbing or edema appreciated SKIN: intact NEUROLOGICAL EXAMINATION: no focal deficits appreciated, at any point during the pts stay. On day of d/c CN 2-12 were intact, EOMI, sensation, reflex, strength b/l upper and lower extremity preserved. PSYCHIATRIC EXAMINATION: normal affect and demeanor LABORATORY DATA: Please see below. IMAGING: Head CT 02-03-17 IMPRESSION: There is no intracranial lesion. Brain MRI 02-03-17 IMPRESSION: 1. Small vessel ischemic disease. 2. The patient is status post suboccipital craniectomy for cerebellar tonsillar ectopia. Brain MRA 02-03-17 IMPRESSION:Normal MRA brain. CXR 02-03-17 Impression: No acute disease. Lumbar MRI 02-03-17 IMPRESSION: 1. Diffuse disc bulges at the L2-3 through L4-5 levels with minimal thecal sac compression. 2. Diffuse disc bulge and small disc protrusion at the L5-S1 level with minimal compression of the thecal sac and left S1 nerve as it exits the thecal sac. PROGNOSIS: stable ACTIVITY: As tolerated-pt advised to rise slowly in the morning out of bed DIET: as tolerated DISCHARGE PLAN: home w/f/u DISPOSITION: stable DISCHARGE INSTRUCTIONS: 1. F/u with neurologist within 7 days of d/c 2. F/u with PCP within 7 days of d/c 3. F/u with datastage architect within 7-10 days of d/c ITEMS TO FOLLOWUP ON ON OUTPATIENT: 1. F/u with neurologist within 7 days of d/c 2. F/u with PCP within 7 days of d/c 3. F/u with datastage architect within 7-10 days of d/c DISCHARGE CONDITION: Stable TIME SPENT ON DISCHARGE: Greater than 30 minutes. Vital Signs/I&Os Vital Signs Date Time Temp Pulse Resp B/P (MAP) Pulse Ox O2 Delivery O2 Flow Rate FiO2 02/05/17 08:00 68 102/58 (73) 82 100/59 (73) 76 104/69 (81) 02/05/17 08:00 98.6 18 97 Room Air I&O- Last 24 Hours up to 6 AM 02/05/17 06:00 Intake Total 920 ml Output Total 2375 ml Balance -1455 ml Laboratory Data Labs 24H Laboratory Tests 2 02/05/17 06:06: White Blood Count 5.6, Red Blood Count 4.21, Hemoglobin 13.3, Hematocrit 39.3, Mean Corpuscular Volume 93.3, Mean Corpuscular Hemoglobin 31.6, Mean Corpuscular Hemoglobin Concent 33.9, Red Cell Distribution Width 12.9, Platelet Count 191, Neutrophils (%) (Auto) 55.4, Lymphocytes (%) (Auto) 33.6, Monocytes ( %) (Auto) 6.7H, Eosinophils (%) (Auto) 1.4, Basophils (%) (Auto) 0.6, Neutrophils # (Auto) 3.1, Lymphocytes # (Auto) 2.0, Monocytes # (Auto) 0.4, Eosinophils # (Auto) 0.1, Basophils # (Auto) 0.0, Large Unclassified Cells % 2.3 , Large Unclassified Cells # 0.1, Anion Gap 3L, Glomerular Filtration Rate > 60.0, Blood Urea Nitrogen 12, Creatinine 0.65, Sodium Level 136, Potassium Level 3.9, Chloride Level 104, Carbon Dioxide Level 29, Calcium Level 8.6, Aspartate Amino Transf (AST/SGOT) 12L, Alanine Aminotransferase (ALT/SGPT) 26, Alkaline Phosphatase 43L, Total Bilirubin 0.5, Total Protein 6.5, Albumin 3.3, Magnesium Level 2.1, Albumin/Globulin Ratio 1.03 CBC/BMP Laboratory Tests 02/05/17 06:06 Red Blood Count 4.21, Mean Corpuscular Volume 93.3, Mean Corpuscular Hemoglobin 31.6, Mean Corpuscular Hemoglobin Concent 33.9, Red Cell Distribution Width 12.9 , Neutrophils (%) (Auto) 55.4, Lymphocytes (%) (Auto) 33.6, Monocytes (%) (Auto ) 6.7 H, Eosinophils (%) (Auto) 1.4, Basophils (%) (Auto) 0.6, Neutrophils # ( Auto) 3.1, Lymphocytes # (Auto) 2.0, Monocytes # (Auto) 0.4, Eosinophils # (Auto ) 0.1, Basophils # (Auto) 0.0, Calcium Level 8.6, Aspartate Amino Transf (AST/ SGOT) 12 L, Alanine Aminotransferase (ALT/SGPT) 26, Alkaline Phosphatase 43 L, Total Bilirubin 0.5, Total Protein 6.5, Albumin 3.3 Discharge Medications Scheduled (Viibryd) 20 Mg Tab, 20 MG PO QPM, (Reported) TAKES WITH DINNER Aspirin (Aspir-81) 81 Mg Tab, 81 MG PO DAILY, (Reported) Scheduled PRN Acetaminophen (Tylenol) 325 Mg Tab, 650 MG PO Q4H PRN for PAIN, (Reported) Acetaminophen/Aspirin/Caffein (Excedrin Migraine 250-250-65 mg) 1 Tab Tab, 1 TAB PO for HEADACHE, (Reported) Alprazolam (Xanax) 0.25 Mg Tab, 0.25 MG PO PRN PRN for ANXIETY, (Reported) Allergies Coded Allergies: Celecoxib (Verified Allergy, Unknown, 08/24/16) Sulfa Drugs (Unverified Allergy, Unknown, RASH, 10/23/12) Sulfa Drugs Cross Reactors (Unverified Allergy, Unknown, RASH, 10/23/12) GME ATTESTATION GME ATTESTATION My preceptor for this patient encounter was physically present in the building during the encounter and was fully available. As needed, all aspects of the patient interview, examination, medical decision making process, and medical care plan development were reviewed and approved by the preceptor. Preceptor is aware and concurs with the plan as stated in the body of this note and will attest to such by his/her cosignature. VIRGINIA MCGEE DO Feb 05, 2017 10:09 TRISTIAN CONLEY Feb 05, 2017 14:06
[2017-05-18] MEDS ORDERED: PHEN2SUP PR (12:05)
[2017-05-18] MEDS ORDERED: BENA25TA10 PO (12:06)
== END 2017-02-05 11:18 | disposition home or self-care (01) ==
LOC: M ED 10:57 → M ED INP 16:16 → M PCU 21:05
PROVIDERS: ADMIT Internal Medicine; ATTEND Hospitalist
DX: G43.809 Other migraine, not intractable, without status migrainosus (principal); R53.1 Weakness; R42 Dizziness and giddiness; F32.9 Major depressive disorder, single episode, unspecified; G93.5 Compression of brain; Q24.9 Congenital malformation of heart, unspecified; Z79.82 Long term (current) use of aspirin; Z79.899 Other long term (current) drug therapy; Z88.2 Allergy status to sulfonamides

== ENCOUNTER → 2017-03-10 | Outpatient (REF) | payer MEDICAID, OTHER ==
[~2017-03-10] MED LIST changes: +BENA25TA10 PO; +PHEN2SUP PR; +VIIB20TA PO; +[UNRECOGNIZED DRUG - CODE]
== END ==
LOC: M SFHCADAM 09:40
PROVIDERS: ATTEND Physician Assistant
DX: Z13.220 Encounter for screening for lipoid disorders (principal); E55.9 Vitamin D deficiency, unspecified

== ENCOUNTER → 2017-04-04 | Outpatient (REF) | payer OTHER ==
[~2017-04-04] MED LIST changes: +APAP500T10 PO; +CVS20TAB PO; +IBUP80TA PO
== END ==
LOC: M SFHCWAGY 11:08
PROVIDERS: ATTEND Nurse Practitioner Family
DX: Z12.4 Encounter for screening for malignant neoplasm of cervix (principal)

== ENCOUNTER → 2017-04-11 | Outpatient (CLI) | payer OTHER, MEDICAID ==
--- NOTE | 2017-04-12 07:53 | REP ---
Clinical: Postmenopausal bleeding . Technique: Transabdominal pelvic ultrasound followed by transvaginal examination for better evaluation of the endometrium and adnexa. Findings: Bladder is unremarkable and measures 7.2 x 4.6 x 8.7 cm . Normal anteverted uterus measures 6.9 x 2.7 x 4.3 cm . The endometrial complex measures 2.1 mm thickness. No discrete uterine or endometrial abnormalities are appreciated. Bilateral ovaries are normal in appearance. Right ovary measures 2.5 x 1.5 x 1.5 cm. Left ovary measures 2.3 x 1.3 x 1.6 cm. No pelvic fluid or adnexal mass lesion. . Impression: 1. Normal pelvic ultrasound.
== END ==
LOC: M WHC 09:45
PROVIDERS: ATTEND Nurse Practitioner Family
DX: N95.0 Postmenopausal bleeding (principal)

== ENCOUNTER 2017-05-28 10:58 | Emergency (ER) | payer OTHER ==
[~2017-05-28] VITALS: Ht 160 cm; Wt 59.5 kg
[~2017-05-28 10:58] MED LIST changes: -APAP500T10 PO; -CVS20TAB PO; -IBUP80TA PO
[2017-05-28] MEDS ORDERED: IBUP80TA PO (13:25)
[2017-05-28] MEDS ORDERED: APAP500T10 PO (13:27)
[2017-05-28] MEDS ORDERED: CVS20TAB PO (13:33)
[2017-05-28 13:48] VITALS: BP 105/64
== END 2017-05-28 13:50 | disposition home or self-care (01) ==
LOC: M ED 10:58
DX: M79.601 Pain in right arm (principal); V40.5XXA Car driver injured in collision with pedestrian or animal in traffic accident, initial encounter; Y92.410 Unspecified street and highway as the place of occurrence of the external cause; Y93.89 Activity, other specified; Y99.8 Other external cause status; Z86.73 Personal history of transient ischemic attack (TIA), and cerebral infarction without residual deficits; Z79.899 Other long term (current) drug therapy; Z79.82 Long term (current) use of aspirin; Z88.2 Allergy status to sulfonamides; Z88.8 Allergy status to other drugs, medicaments and biological substances; Z91.040 Latex allergy status

== ENCOUNTER → 2017-06-01 | Outpatient (CLI) | payer OTHER ==
[~2017-06-01] MED LIST changes: +APAP500T10 PO; +CVS20TAB PO; +IBUP80TA PO
--- NOTE | 2017-06-01 14:38 | REP ---
Clinical: Acute pain. Technique: Internal rotation, external rotation, and Y view of the right shoulder. Findings: Cortical irregularity at the acromioclavicular joint is appreciated along with small calcifications up to approximately 5 mm along the posterior aspect of the humeral head. No acute fracture dislocation. Impression: Mild degenerative changes and calcific tendinopathy. Signed by Regulo Gonzalez MD 06/01/2017 10:48 A
== END ==
LOC: M LRY 09:58
PROVIDERS: ATTEND Family Medicine
DX: T14.90XA Injury, unspecified, initial encounter (principal); M25.511 Pain in right shoulder; W18.30XA Fall on same level, unspecified, initial encounter; Y92.009 Unspecified place in unspecified non-institutional (private) residence as the place of occurrence of the external cause

== ENCOUNTER → 2017-06-07 | Outpatient (CLI) | payer OTHER ==
--- NOTE | 2017-06-14 22:01 | SLEEPCENT ---
DATE OF PROCEDURE: 06/07/2017 ORDERED BY: Bren Rey Nocturnal polysomnography was performed for evaluation of sleep physiology in this patient with a history of excessive somnolence and nonrestorative sleep. 7 hours and 20 minutes of data were reviewed. There were only 270 minutes of sleep identified. Sleep latency was prolonged at 20 minutes. Rapid eye movement (REM) sleep was not achieved. Sleep architecture showed poor progression, and the patient woke shortly after 2:00 a.m. for nearly 2 hours. The electrocardiogram showed a sinus rhythm with an average heart rate of 62 beats per minute. EEG showed fairly normal waveforms for wake and sleep stages. There were 62 respiratory events identified of 10 seconds in duration or greater for an apnea-hypopnea index of 13.8. The events were both central and obstructive, greater than 50% central events were seen. The events were not exclusive to sleep stage nor body posture. Arousals from respiratory events occurred 5.1 times per hour with some limb activity identified on the EMG but arousal events were few. No significant oxygen desaturations were seen. There was some snoring noted on the measures. IMPRESSION: Mild complex obstructive sleep apnea syndrome (G47.31), (G47.33). RECOMMENDATION: The patient should be encouraged to return to the sleep disorder center for pressure therapy. Given the frequency of central events, the use of a bilevel device and backup rate may be necessary. Copy To: Chris Rivers
== END ==
LOC: M SLEEP 19:38
PROVIDERS: ATTEND Nurse Practitioner Adult Health
DX: G47.30 Sleep apnea, unspecified (principal)

== ENCOUNTER 2017-06-28 12:30 | Outpatient (RCR) | payer OTHER | END 2017-07-17 | LOC: M PT 12:30 | DX: Z51.89 Encounter for other specified aftercare (principal); T14.90XA Injury, unspecified, initial encounter; M75.81 Other shoulder lesions, right shoulder; Y92.9 Unspecified place or not applicable; Y93.9 Activity, unspecified | CPT/HCPCS: 97010 ==

== ENCOUNTER → 2017-06-28 | Outpatient (CLI) | payer OTHER ==
--- NOTE | 2017-07-01 10:05 | SLEEPCENT ---
DATE OF PROCEDURE: 06/28/2017 ORDERED BY: NORA Tapia Nocturnal polysomnography was performed for the titration of pressure therapy in this patient with a clinical diagnosis of obstructive sleep apnea syndrome, apnea hypopnea index of 13.8. For testing, the patient was fit with a ResMed Quattro full face mask of extra-small size. 4 cm of water pressure were applied to the circuit and the lights were extinguished. 7 hours and 23 minutes of data were reviewed. There were only 259 minutes of sleep identified. Sleep latency was prolonged at 25 minutes. Rapid eye movement (REM) latency was quite prolonged at 407 minutes. Only 30 seconds of REM sleep was seen during the test. The patient's sleep architecture showed poor progression and a prolonged period of wake between 2 and 4:30 a.m. Limited exposure to pressure therapy. The patient's electrocardiogram (EKG) showed a sinus rhythm with an average heart rate of 62 beats per minute. EEG showed fairly normal waveforms for awake and sleep. Respiratory events were significantly palliated with CPAP at a pressure of +8. There was some emergence of central apnea. Best sleep however, was seen on a CPAP pressure of 8. There was minimal limb activity and remaining of measures of sleep physiology were normal. IMPRESSION: Obstructive sleep apnea syndrome (G47.33). RECOMMENDATION: Nightly use of CPAP at a pressure therapy of +8 cm is recommended with close clinical followup. Given the difficulty establishing deep sleep in the lab, re-titration may be necessary if the patient's response is not forthcoming. edited: 07/01/2017 [id number] tkf SPENSER
== END ==
LOC: M SLEEP 19:51
PROVIDERS: ATTEND Nurse Practitioner Adult Health
DX: G47.33 Obstructive sleep apnea (adult) (pediatric) (principal)

== ENCOUNTER 2017-07-19 12:42 | Outpatient (RCR) | payer OTHER | END 2017-08-17 | LOC: M PT 12:42 | DX: Z51.89 Encounter for other specified aftercare (principal); M75.81 Other shoulder lesions, right shoulder; T14.90XA Injury, unspecified, initial encounter; Y92.9 Unspecified place or not applicable; Y93.9 Activity, unspecified | CPT/HCPCS: 97010 ==

== ENCOUNTER 2017-09-01 15:32 | Outpatient (RCR) | payer OTHER | END 2017-09-14 | LOC: M PT 09-05 13:10 | DX: M75.81 Other shoulder lesions, right shoulder (principal); T14.90XA Injury, unspecified, initial encounter; Z51.89 Encounter for other specified aftercare | CPT/HCPCS: 97110 ==

== ENCOUNTER 2017-09-15 13:28 | Outpatient (RCR) | payer OTHER | END 2017-10-15 | LOC: M PT 09-21 12:45 | DX: Z51.89 Encounter for other specified aftercare (principal); M75.81 Other shoulder lesions, right shoulder; T14.90XS Injury, unspecified, sequela ==

== ENCOUNTER → 2018-02-10 | Outpatient (REF) | payer OTHER ==
[2018-02-11 00:08] LABS: CHLAMYDIA DNA AMPLIFICATION NEGATIVE (NEGATIVE); GC DNA AMPLIFICATION NEGATIVE (NEGATIVE)
== END ==
LOC: M SFHCWAGY 16:50
DX: N95.0 Postmenopausal bleeding (principal)

== ENCOUNTER → 2018-02-21 | Outpatient (CLI) | payer OTHER | LOC: M WHC 12:59 | DX: N95.0 Postmenopausal bleeding (principal) | CPT/HCPCS: 76830 ==

== ENCOUNTER 2018-03-29 09:50 | Outpatient (RCR) | payer OTHER | END 2018-04-16 | LOC: M PT 09:50 | DX: S46.211A Strain of muscle, fascia and tendon of other parts of biceps, right arm, initial encounter (principal); X58.XXXA Exposure to other specified factors, initial encounter; Y92.9 Unspecified place or not applicable; Y93.9 Activity, unspecified; Y99.9 Unspecified external cause status | CPT/HCPCS: 97010 ==

== ENCOUNTER → 2018-04-07 | Outpatient (REF) | payer OTHER | LOC: M SFHCWAGY 11:16 | DX: N95.0 Postmenopausal bleeding (principal) ==

== ENCOUNTER 2018-04-19 09:43 | Outpatient (RCR) | payer OTHER | END 2018-05-17 | LOC: M PT 09:43 | DX: S46.911A Strain of unspecified muscle, fascia and tendon at shoulder and upper arm level, right arm, initial encounter (principal) | CPT/HCPCS: 97110 ==

== ENCOUNTER → 2018-05-23 | Outpatient (REF) | payer OTHER ==
[2018-05-23 13:05] LABS: BASO % 0.6 % (0.0-1.0); EOS # 0.1 10^3/uL (0.0-0.50); EOS % 1.4 % (0.0-3.0); HEMATOCRIT 42.4 % (36.0-47.0); IMMATURE GRANULOCYTE % 0.4 % (0-3.0); LYMPH # 1.6 10^3/uL (1.5-4.5); LYMPH % 31.2 % (24.0-44.0); MEAN CORPUSCULAR HEMOGLOBIN 30.9 pg (27.0-33.0); MEAN CORPUSCULAR VOLUME 93.6 fl (80.0-96.0); MONO # 0.3 10^3/uL (0.0-0.8); MONO % 6.4 % (0.0-5.0); PLATELET COUNT, AUTOMATED 214 10^3/uL (150-450); RED BLOOD COUNT 4.53 10^6/uL (4.00-5.40); RED CELL DISTRIBUTION WIDTH 13.2 % (11.5-14.5)
[2018-05-23 14:14] LABS: ALBUMIN 3.7 GM/DL (3.2-5.2); ALBUMIN/GLOBULIN RATIO 1.12 (1.00-1.93); ALKALINE PHOSPHATASE 51 U/L (45-117); ALT/SGPT 27 U/L (12-78); ANION GAP 8 MEQ/L (8-16); AST/SGOT 15 U/L (7-37); BILIRUBIN,TOTAL 0.5 MG/DL (0.2-1.0); BLOOD UREA NITROGEN 11 MG/DL (7-18); CARBON DIOXIDE LEVEL 28 MEQ/L (21-32); CHLORIDE LEVEL 105 MEQ/L (98-107); CHOLESTEROL LEVEL 168 MG/DL (<200); CHOLESTEROL RISK RATIO 2.507 (<5); CREATININE FOR GFR 0.69 MG/DL (0.55-1.30); FREE T4 1.08 NG/DL (0.76-1.46); GLOMERULAR FILTRATION RATE > 60.0 (>51); GLUCOSE, FASTING 87 MG/DL (70-100); HDL CHOLESTEROL 67 MG/DL (>40); LDL CHOLESTEROL 91 MG/DL (<100); NON-HDL-C 101 MG/DL; POTASSIUM SERUM 4.5 MEQ/L (3.5-5.1); SODIUM LEVEL 141 MEQ/L (136-145); TRIGLYCERIDES LEVEL 49 MG/DL (<150)
== END ==
LOC: M LABDRWAD 12:45
DX: Z95.818 Presence of other cardiac implants and grafts (principal)

== ENCOUNTER → 2018-07-26 | Outpatient (REF) | payer OTHER ==
[~2018-07-26] MED LIST changes: +NITR100C2 PO
== END ==
LOC: M SFHCLERA 12:49
PROVIDERS: ATTEND Physician Assistant
DX: N39.0 Urinary tract infection, site not specified (principal)

== ENCOUNTER 2018-07-31 11:46 | Emergency (ER) | payer OTHER ==
[~2018-07-31] VITALS: Ht 160 cm; Wt 65.9 kg
[~2018-07-31 11:46] MED LIST changes: -NITR100C2 PO
[2018-07-31] MEDS ORDERED: NITR100C2 PO (11:58)
[2018-07-31 12:36] LABS: BASO % 0.5 % (0.0-1.0); EOS # 0.1 10^3/uL (0.0-0.50); EOS % 1.4 % (0.0-3.0); HEMATOCRIT 42.1 % (36.0-47.0); LYMPH # 1.8 10^3/uL (1.5-4.5); LYMPH % 31.7 % (24.0-44.0); MEAN CORPUSCULAR HEMOGLOBIN 30.7 pg (27.0-33.0); MEAN CORPUSCULAR HGB CONC 33.3 g/dl (32.0-36.5); MEAN CORPUSCULAR VOLUME 92.3 fl (80.0-96.0); MONO # 0.4 10^3/uL (0.0-0.8); MONO % 7.7 % (0.0-5.0); NEUTROPHILS # 3.3 10^3/uL (1.8-7.7); NEUTROPHILS % 58.3 % (36.0-66.0); PLATELET COUNT, AUTOMATED 210 10^3/uL (150-450); RED BLOOD COUNT 4.56 10^6/uL (4.00-5.40); WHITE BLOOD COUNT 5.6 10^3/uL (4.0-10.0)
[2018-07-31 12:43] LABS: INR 0.97
[2018-07-31 12:44] LABS: PARTIAL THROMBOPLASTIN TIME 28.1 SECONDS (25.4-37.6)
[2018-07-31 13:02] LABS: ALBUMIN 3.6 GM/DL (3.2-5.2); ALT/SGPT 45 U/L (12-78); AMYLASE 85 U/L (25-115); BILIRUBIN,DIRECT 0.1 MG/DL (0.0-0.2); BILIRUBIN,TOTAL 0.4 MG/DL (0.2-1.0); BLOOD UREA NITROGEN 9 MG/DL (7-18); C REACTIVE PROTEIN QUANTITATIV < 0.30 MG/DL (0.00-0.30); CALCIUM LEVEL 8.5 MG/DL (8.5-10.1); CARBON DIOXIDE LEVEL 27 MEQ/L (21-32); CHLORIDE LEVEL 105 MEQ/L (98-107); CK-MB VALUE MASS < 1.0 NG/ML (<3.6); CPK CREATINE PHOSPHOKINASE 65 U/L (26-192); CREATININE FOR GFR 0.61 MG/DL (0.55-1.30); GLOMERULAR FILTRATION RATE > 60.0 (>51); GLUCOSE, FASTING 95 MG/DL (70-100); MB/CK RELATIVE INDEX 1.54 (< OR =4); SODIUM LEVEL 141 MEQ/L (136-145); TROPONIN I < 0.02 NG/ML (< 0.10)
[2018-07-31 13:13] LABS: INFLUENZA A AMPLIFICATION NEGATIVE (NEGATIVE); INFLUENZA B AMPLIFICATION NEGATIVE (NEGATIVE)
[2018-07-31] MEDS ORDERED: NS 1,000 ML IV ONE (13:15)
--- NOTE | 2018-07-31 13:15 | REP ---
Chest one-view HISTORY: Sepsis Comparison: 02/03/2017 The lungs are clear. The heart is normal in size. The pulmonary vasculature is normal in appearance. Impression: No acute disease. Electronically Signed by Suhail Worthy MD 07/31/2018 01:07 P
[2018-07-31 13:27] LABS: APPEARANCE, URINE CLEAR (CLEAR); BACTERIA, URINE AUTO NEGATIVE (NEGATIVE); BILIRUBIN, URINE AUTO NEGATIVE (NEGATIVE); BLOOD, URINE BLOOD NEGATIVE (NEGATIVE); COLOR, URINE STRAW (YELLOW); GLUCOSE, URINE (UA) AUTO NEGATIVE (NEGATIVE); KETONE, URINE AUTO NEGATIVE (NEGATIVE); LEUKOCYTE ESTERASE, URINE AUTO NEGATIVE (NEGATIVE); NITRITE, URINE AUTO NEGATIVE (NEGATIVE); PROTEIN, URINE AUTO NEGATIVE (NEGATIVE); RBC, URINE AUTO 1 /HPF (0-3); SPECIFIC GRAVITY URINE AUTO 1.001 (1.002-1.035); SQUAMOUS EPITHELIAL CELL UR AU 0 /HPF (0-6); UROBILINOGEN, URINE AUTO 0.2 mg/dL (0.0-2.0); WBC, URINE AUTO 0 /HPF (0-3)
[2018-07-31 14:33] VITALS: BP 123/64
--- NOTE | 2018-07-31 14:53 | ECGEPIP ---
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
== END 2018-07-31 14:33 | disposition home or self-care (01) ==
LOC: M ED 11:46
DX: I95.1 Orthostatic hypotension (principal)

== ENCOUNTER → 2018-09-16 | Outpatient (REF) | payer OTHER ==
[~2018-09-16] MED LIST changes: +NITR100C2 PO
== END ==
LOC: M SFHCLERA 16:01
PROVIDERS: ATTEND Nurse Practitioner Family
DX: J02.9 Acute pharyngitis, unspecified (principal)

== ENCOUNTER → 2018-09-19 | Outpatient (REF) | payer MEDICARE, MEDICAID | LOC: M SFHCWAGY 10:37 | PROVIDERS: ATTEND Nurse Practitioner Family | DX: Z12.4 Encounter for screening for malignant neoplasm of cervix (principal) | CPT/HCPCS: G0101; G0123 ==

== ENCOUNTER → 2019-06-13 | Outpatient (CLI) | payer MEDICARE, MEDICAID ==
[~2019-06-13] MED LIST changes: -CVS20TAB PO; +OMEP20TA9 PO
--- NOTE | 2019-06-13 15:03 | REP ---
Clinical: Left knee pain. Technique: AP, lateral, bilateral oblique and sunrise views of the left knee. Findings: Lateral view demonstrates anterior infrapatellar swelling and either fracture or bipartite appearance to the patella for which clinical and physical correlation is required. Remainder examination appears age-appropriate. Impression: Anteroinferior swelling and bipartite patella versus fracture. Correlation is required. No prior examinations are available for comparison. Electronically Signed by Regulo Gonzalez MD 06/13/2019 02:55 P
== END ==
LOC: M ADAMS 14:36
PROVIDERS: ATTEND Family Medicine
DX: M25.462 Effusion, left knee (principal); M25.562 Pain in left knee
CPT/HCPCS: 73564; G0463

== ENCOUNTER 2019-07-09 10:12 | Outpatient (RCR) | payer MEDICARE, MEDICAID | END 2019-07-17 | LOC: M PT 10:12 | PROVIDERS: ATTEND Family Medicine | DX: M25.562 Pain in left knee (principal) ==

== ENCOUNTER → 2019-07-19 | Outpatient (CLI) | payer MEDICARE, MEDICAID ==
--- NOTE | 2019-07-19 16:04 | REP ---
Clinical: Chest pain . Comparison: 02/03/2017 . Technique: PA and lateral. Findings: The mediastinum and cardiac silhouette are normal. Loop recorder. The lung truong are clear and without acute consolidation, effusion, or pneumothorax. The skeletal structures are intact and normal. Impression: 1. No acute cardiopulmonary process. Electronically Signed by Regulo Gonzalez MD 07/19/2019 03:56 P
== END ==
LOC: M ADAMS 15:35
PROVIDERS: ATTEND Family Medicine
DX: R07.9 Chest pain, unspecified (principal)
CPT/HCPCS: 71046; G0463

== ENCOUNTER → 2019-07-31 | Outpatient (CLI) | payer MEDICAID, MEDICARE ==
--- NOTE | 2019-07-31 18:10 | REP ---
COOKIE SWALLOW The procedure was performed under the direct supervision of Dr. Parker. The procedure was performed with Brit Dodd from speech pathology present. 5 ml aliquots of thin, pudding, mixed fruit, soft and solid consistency barium was administered as well as a barium pill. There is no evidence of penetration or aspiration. The detailed report of this examination will be provided by speech pathology. 1.4 minutes of fluoroscopy time was utilized for this procedure. Electronically Signed by RAFA Hoover 07/31/2019 04:51 P Electronically Signed by Uriah Parker MD 07/31/2019 06:02 P
== END ==
LOC: M ST 13:56
PROVIDERS: ATTEND Family Medicine
DX: R13.10 Dysphagia, unspecified (principal)

== ENCOUNTER 2019-08-08 10:07 | Outpatient (RCR) | payer MEDICARE, MEDICAID | END 2019-08-17 | LOC: M PT 10:07 | PROVIDERS: ATTEND Family Medicine | DX: M25.562 Pain in left knee (principal) ==

== ENCOUNTER → 2019-08-27 | Outpatient (CLI) | payer MEDICAID, MEDICARE ==
--- NOTE | 2019-08-27 09:08 | REP ---
Clinical: Chest pain. Technique: Axial noncontrast images from the thoracic inlet to the upper abdomen coronal and sagittal re-formations. Comparison: None. Findings: There is a small 11 mm area of consolidation along the lateral aspect of the right middle lobe with adjacent small nodules suggesting a focus of pneumonitis along with chronic linear scarring at the medial right middle lobe. Remainder of the bilateral lung truong are clear. No effusion. No pneumothorax. No significant adenopathy. The mediastinum demonstrates relatively normal thoracic aorta, pulmonary vasculature, and heart/pericardium. Surrounding musculoskeletal structures are intact. Limited upper abdomen demonstrates scattered hepatic hypodensities suggesting cysts and/or hemangioma. Normal bilateral adrenal glands noted. Impression: 1. Small focal area of consolidation with adjacent small nodules in the lateral right middle lobe suggesting focal pneumonitis. Consider short-term follow-up at 3 months. 2. Hepatic hypodensities likely representing cysts and/or hemangioma may be evaluated by ultrasound as necessary. Electronically Signed by Regulo Gonzalez MD 08/27/2019 08:59 A
== END ==
LOC: M RAD 06:51
PROVIDERS: ATTEND Family Medicine
DX: R07.9 Chest pain, unspecified (principal)

== ENCOUNTER 2019-08-28 11:38 | Outpatient (RCR) | payer MEDICAID, MEDICARE | END 2019-09-15 | LOC: M PT 11:38 | PROVIDERS: ATTEND Family Medicine | DX: M25.562 Pain in left knee (principal); S80.02XD Contusion of left knee, subsequent encounter; S82.015 Nondisplaced osteochondral fracture of left patella; X58.XXXD Exposure to other specified factors, subsequent encounter; Y92.9 Unspecified place or not applicable; Y93.9 Activity, unspecified; Y99.9 Unspecified external cause status ==

== ENCOUNTER → 2019-12-24 | Outpatient (CLI) | payer MEDICARE, MEDICAID ==
--- NOTE | 2019-12-24 23:44 | REP ---
REASON FOR EXAM: Followup. COMPARISON: 08/27/2019 The mediastinum and pulmonary agnes are unchanged. No mass or adenopathy has developed. There is a small pericardial effusion, status quo. There are no pleural effusions. There is no change in the imaged upper abdomen or imaged osseous structures. Evaluation of the lung truong shows near complete resolution of the opacity seen previously in the right middle lobe and without evidence of a new abnormal nodule, mass, or opacities. IMPRESSION: Improvement, as described above. Electronically Signed by Cosme Dawson DO 12/25/2019 11:08 A
== END ==
LOC: M RAD 07:37
PROVIDERS: ATTEND Family Medicine
DX: R93.89 Abnormal findings on diagnostic imaging of other specified body structures (principal); I31.3 Pericardial effusion (noninflammatory)

== ENCOUNTER → 2020-01-11 | Outpatient (CLI) | payer MEDICARE, MEDICAID ==
--- NOTE | 2020-01-11 10:11 | REP ---
[facility] MRI lumbar spine: 01/11/2020. Indication: Low back pain. Technique: Multiplanar short and long TR sequences of the lumbar spine were performed without IV Gadolinium. Comparison: 02/03/2017. Findings: Disc desiccation and disc space narrowing are present throughout the lumbar spine with the exception of a L1/L2. Endplate degenerative signal changes are present most pronounced at L2/L3. No worrisome marrow signal is present. The visualized cord is normal. L1/L2: Unremarkable. L2/L3: Diffuse disc bulge and mild bilateral facet arthropathy are present with mild bilateral recess and neural foraminal narrowing. L3/L4: Diffuse disc bulge and bilateral facet arthropathy are present with mild bilateral recess and bilateral neural foraminal narrowing. L4/L5: Diffuse disc bulge and bilateral facet arthropathy are present with mild ligamental laxity. There is moderate left greater than right recess narrowing. Mild bilateral neural foraminal narrowing is present. L5/S1: Diffuse disc bulge and left greater than right facet arthropathy are present with moderate to severe left and moderate right recess narrowing. Mild bilateral neural foraminal narrowing is present. Impression: Multilevel degenerative sequelae of the lumbar spine as described most pronounced on the left at L5/S1. Electronically Signed by Kevan Edmondson DO 01/11/2020 10:03 A
--- NOTE | 2020-01-11 10:30 | REP ---
MRI cervical spine: 01/11/2020. Indication: Cervical radiculopathy. Technique: Multiplanar short and long TR sequences of the cervical spine were performed without IV Gadolinium. Comparison: 08/24/2016. Findings: There is minimal retrolisthesis of C5 and C6. Disc dessication and disc space narrowing are present at C5/C6 as well. Disc dessication is additionally noted throughout the cervical spine with the exception of C7/T1. No worrisome marrow or cord signal is present. The cerebellar tonsils extend through the foramen magnum below the basion-opisthion line with borderline Chiari one malformation by radiologic criteria. C2/C3: There is no focal disc herniation or significant spinal canal / neural foraminal narrowing. C3/C4 and C4/C5: Diffuse disc bulges are present at both levels with mild left greater than right neural foraminal narrowing and effacement of the ventral thecal sac. C5/C6: Diffuse disc osteophyte complex is present with mild spinal canal and bilateral moderate neural foraminal narrowing. C6/C7: There is no focal disc herniation or significant spinal canal / neural foraminal narrowing. C7/C1: Unremarkable. Impression: Degenerative sequelae of the cervical spine as described most pronounced at C5/C6. 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 Electronically Signed by Kevan Edmondson DO 01/11/2020 10:22 A
== END ==
LOC: M RAD 07:38
PROVIDERS: ATTEND Physician Assistant
DX: M51.36 Other intervertebral disc degeneration, lumbar region (principal); M51.26 Other intervertebral disc displacement, lumbar region

== ENCOUNTER → 2020-03-26 | Outpatient (CLI) | payer MEDICARE, MEDICAID ==
[~2020-03-26] MED LIST changes: -ASPI81TA85 PO; +ASPI81TA86 PO; +E-Z-GAS II EFFERVESCENT PACKET (SODIUM BICARB./CITRIC ACID/SIMETHICONE) As Ordered ONE; +E-Z-HD 98% w/w 340GM SUSP BTL As Ordered ONE; +E-Z-PAQUE 96% w/w SUSP 176GM BTL As Ordered ONE; -HYDR-2809 PO; +HYDR-4431 PO
--- NOTE | 2020-04-15 13:00 | REP ---
ESOPHAGRAM AIR CONTRAST: The procedure was performed under the direct supervision of Dr. Srinivasan. The images were reviewed with Dr. Srinivasan. A single view PA chest x-ray is submitted as a community manager film. There is a loop recorder in place. There is no change compared to a previous chest x-ray completed on 07/19/19. Liquid barium and gas producing granule were given in the erect position as well as liquid barium in the prone oblique positions in order to perform a double contrast esophagram examination. The oral and pharyngeal stages of deglutition are unremarkable. During esophageal transport there are tertiary waves demonstrated. There is no esophagitis, stricture, or mucosal ring. There is a small sliding type hiatal hernia. There is gastroesophageal reflux demonstrated to below the level of the [place]. IMPRESSION: 1. Tertiary waves. 2. There is a small sliding type hiatal hernia. There is gastroesophageal reflux demonstrated to below the level of the [place]. 0.8 minutes of fluoroscopy time was utilized for this procedure. [facility]
== END ==
LOC: M RAD 07:51
PROVIDERS: ATTEND Family Medicine
DX: R13.10 Dysphagia, unspecified (principal)

== ENCOUNTER → 2020-09-06 | Outpatient (CLI) | payer SELFPAY ==
[~2020-09-06] MED LIST changes: -E-Z-GAS II EFFERVESCENT PACKET (SODIUM BICARB./CITRIC ACID/SIMETHICONE) As Ordered ONE; -E-Z-HD 98% w/w 340GM SUSP BTL As Ordered ONE; -E-Z-PAQUE 96% w/w SUSP 176GM BTL As Ordered ONE
== END | disposition home or self-care (01) ==
LOC: M LABSMTC 08:33
PROVIDERS: ATTEND Pediatrics
DX: Z11.52 Encounter for screening for COVID-19 (principal)

== ENCOUNTER → 2020-10-08 | Outpatient (REF) | payer MEDICARE, MEDICAID | LOC: M LAB REF 09:48 | PROVIDERS: ATTEND Internal Medicine Cardiovascular Disease | DX: I95.0 Idiopathic hypotension (principal) ==

== ENCOUNTER → 2020-10-09 | Outpatient (CLI) | payer MEDICARE, MEDICAID | LOC: M LABSMTC 12:24 | PROVIDERS: ATTEND Family Medicine | DX: Z20.822 Contact with and (suspected) exposure to COVID-19 (principal) | CPT/HCPCS: C9803; U0003 ==

== ENCOUNTER → 2021-02-20 | Outpatient (REF) | payer MEDICARE, MEDICAID ==
[~2021-02-20] MED LIST changes: +OMEP20TA2 PO; -OMEP20TA9 PO
== END ==
LOC: M SFHCADAM 17:23
PROVIDERS: ATTEND Family Medicine
DX: R35.0 Frequency of micturition (principal)
CPT/HCPCS: 87086; G0463

== ENCOUNTER → 2021-10-22 | Outpatient (REF) | payer MEDICARE, MEDICAID ==
[2021-10-22 17:32] LABS: BASO # 0.1 10^3/uL (0.0-0.2); BASO % 0.8 % (0.0-1.0); EOS # 0.1 10^3/uL (0.0-0.5); EOS % 1.6 % (0.0-3.0); HEMATOCRIT 42.2 % (36.0-47.0); HEMOGLOBIN 13.7 g/dl (12.0-15.5); LYMPH # 2.4 10^3/uL (1.5-5.0); LYMPH % 31.7 % (24.0-44.0); MEAN CORPUSCULAR HEMOGLOBIN 30.6 pg (27.0-33.0); MEAN CORPUSCULAR HGB CONC 32.5 g/dl (32.0-36.5); MEAN CORPUSCULAR VOLUME 94.2 fl (80.0-96.0); MONO # 0.6 10^3/uL (0.0-0.8); MONO % 7.1 % (2.0-8.0); NEUTROPHILS # 4.5 10^3/uL (1.5-8.5); NEUTROPHILS % 58.5 % (36.0-66.0); PLATELET COUNT, AUTOMATED 217 10^3/uL (150-450); RED BLOOD COUNT 4.48 10^6/uL (4.00-5.40); WHITE BLOOD COUNT 7.7 10^3/uL (4.0-10.0)
[2021-10-22 18:06] LABS: ALBUMIN 3.8 GM/DL (3.2-5.2); ALT/SGPT 30 U/L (12-78); BILIRUBIN,TOTAL 0.3 MG/DL (0.2-1.0); BLOOD UREA NITROGEN 16 MG/DL (7-18); CALCIUM LEVEL 8.8 MG/DL (8.8-10.2); CARBON DIOXIDE LEVEL 33 MEQ/L (21-32); CHLORIDE LEVEL 108 MEQ/L (98-107); CREATININE FOR GFR 0.79 MG/DL (0.55-1.30); FREE T4 1.09 NG/DL (0.76-1.46); GLOMERULAR FILTRATION RATE > 60.0 (>45); GLUCOSE, FASTING 105 MG/DL (70-100); POTASSIUM SERUM 4.2 MEQ/L (3.5-5.1); SODIUM LEVEL 143 MEQ/L (136-145); TESTOSTERONE 16 NG/DL (14-76)
== END ==
LOC: M SFHCADAM 15:29
PROVIDERS: ATTEND Family Medicine
DX: L68.9 Hypertrichosis, unspecified (principal); Z79.899 Other long term (current) drug therapy

== ENCOUNTER → 2022-01-11 | Outpatient (REF) | payer MEDICARE, MEDICAID | LOC: M SFHCADAM 15:51 | PROVIDERS: ATTEND Family Medicine | DX: Z20.822 Contact with and (suspected) exposure to COVID-19 (principal) ==

== ENCOUNTER → 2022-02-02 | Outpatient (CLI) | payer MEDICARE, MEDICAID ==
[~2022-02-02] MED LIST changes: +ACET-897 PO; +BENA25CA4 PO; +ECOT81TA5 PO; +ESTR1CRE TOP; +MIDO5TA PO; +MOME50SP2; +PROM12.56 PO; +REFR0.5D8 OU; +SALI0.6530; +VITA100093 PO
== END ==
LOC: M LABSMTC 10:05
PROVIDERS: ATTEND Anesthesiology
DX: Z01.818 Encounter for other preprocedural examination (principal); Z20.822 Contact with and (suspected) exposure to COVID-19

== ENCOUNTER 2022-02-04 12:10 | Day surgery (SDC) | payer MEDICARE, MEDICAID ==
[~2022-02-04] VITALS: Ht 160 cm; Wt 61.2 kg
[~2022-02-04 12:10] MED LIST changes: +ceFAZolin SOD 2 GM in IV 1 EA IV ONE
[2022-02-04] MEDS ORDERED: LR 1,000 ML IV SCH (12:20)
[2022-02-04] MEDS ORDERED: LIDOCAINE 1% SDV 30ML VIAL As Ordered ONE (16:08)
[2022-02-04 17:30] VITALS: BP 117/56
== END 2022-02-04 17:40 | disposition home or self-care (01) ==
LOC: M SDC 12:10
PROVIDERS: ATTEND Internal Medicine Cardiovascular Disease
DX: Z45.09 Encounter for adjustment and management of other cardiac device (principal); I95.0 Idiopathic hypotension; R07.9 Chest pain, unspecified; G47.33 Obstructive sleep apnea (adult) (pediatric); K21.9 Gastro-esophageal reflux disease without esophagitis; G43.909 Migraine, unspecified, not intractable, without status migrainosus; Z91.040 Latex allergy status; Z88.8 Allergy status to other drugs, medicaments and biological substances; Z88.2 Allergy status to sulfonamides; Z79.899 Other long term (current) drug therapy
CPT/HCPCS: 33286; J0690

== ENCOUNTER → 2022-03-09 | Outpatient (CLI) | payer MEDICARE, MEDICAID ==
[~2022-03-09] MED LIST changes: -ceFAZolin SOD 2 GM in IV 1 EA IV ONE
== END ==
LOC: M PLAIMG 15:28
PROVIDERS: ATTEND Physician Assistant
DX: M77.32 Calcaneal spur, left foot (principal); M25.472 Effusion, left ankle

== ENCOUNTER → 2022-05-13 | Outpatient (CLI) | payer MEDICARE, MEDICAID | LOC: M CARPUL 08:33 | PROVIDERS: ATTEND Physician Assistant | DX: Q21.12 Patent foramen ovale (principal); I31.39 Other pericardial effusion (noninflammatory); I08.1 Rheumatic disorders of both mitral and tricuspid valves ==

== ENCOUNTER → 2022-05-18 | Outpatient (REF) | payer MEDICARE, MEDICAID ==
[2022-05-18 13:05] LABS: HEMATOCRIT 45.1 % (36.0-47.0); HEMOGLOBIN 14.4 g/dl (12.0-15.5); MEAN CORPUSCULAR HEMOGLOBIN 30.4 pg (27.0-33.0); MEAN CORPUSCULAR HGB CONC 31.9 g/dl (32.0-36.5); MEAN CORPUSCULAR VOLUME 95.1 fl (80.0-96.0); PLATELET COUNT, AUTOMATED 244 10^3/uL (150-450); RED BLOOD COUNT 4.74 10^6/uL (4.00-5.40); WHITE BLOOD COUNT 5.9 10^3/uL (4.0-10.0)
[2022-05-18 13:38] LABS: ALBUMIN 3.9 GM/DL (3.2-5.2); ALT/SGPT 30 U/L (12-78); BILIRUBIN,TOTAL 0.6 MG/DL (0.2-1.0); BLOOD UREA NITROGEN 10 MG/DL (7-18); CALCIUM LEVEL 9.1 MG/DL (8.8-10.2); CARBON DIOXIDE LEVEL 29 MEQ/L (21-32); CHLORIDE LEVEL 104 MEQ/L (98-107); GLOMERULAR FILTRATION RATE > 60.0 (>45); GLUCOSE, FASTING 90 MG/DL (70-100); MAGNESIUM LEVEL 2.2 MG/DL (1.8-2.4); POTASSIUM SERUM 4.5 MEQ/L (3.5-5.1); SODIUM LEVEL 140 MEQ/L (136-145); TOTAL PROTEIN 7.3 GM/DL (6.4-8.2)
== END ==
LOC: M LABDRWAD 12:34
PROVIDERS: ATTEND Physician Assistant
DX: R00.2 Palpitations (principal)

== ENCOUNTER → 2022-10-05 | Outpatient (REF) | payer MEDICARE, MEDICAID ==
[~2022-10-05] MED LIST changes: +FLUD0.1T PO
== END ==
LOC: M SFHCADAM 12:31
PROVIDERS: ATTEND Family Medicine
DX: R05.1 Acute cough (principal)

== ENCOUNTER → 2022-10-10 | Outpatient (CLI) | payer MEDICARE, MEDICAID | LOC: M RAD 16:16 | PROVIDERS: ATTEND Physician Assistant Medical | DX: R05.9 Cough, unspecified (principal); R06.02 Shortness of breath ==

== ENCOUNTER 2022-10-12 10:33 | Emergency (ER) | payer MEDICARE, MEDICAID ==
[~2022-10-12] VITALS: Ht 160 cm; Wt 63.9 kg
[~2022-10-12 10:33] MED LIST changes: -FLUD0.1T PO
[2022-10-12] MEDS ORDERED: NS 500 ML IV ONE (13:15)
[2022-10-12 13:54] LABS: HEMATOCRIT 42.5 % (36.0-47.0); HEMOGLOBIN 13.7 g/dl (12.0-15.5); MEAN CORPUSCULAR HEMOGLOBIN 29.9 pg (27.0-33.0); MEAN CORPUSCULAR HGB CONC 32.2 g/dl (32.0-36.5); MEAN CORPUSCULAR VOLUME 92.8 fl (80.0-96.0); PLATELET COUNT, AUTOMATED 219 10^3/uL (150-450); RED BLOOD COUNT 4.58 10^6/uL (4.00-5.40)
[2022-10-12 13:55] LABS: APPEARANCE, URINE CLEAR (CLEAR); BACTERIA, URINE AUTO NEGATIVE (NEGATIVE); BILIRUBIN, URINE AUTO NEGATIVE (NEGATIVE); BLOOD, URINE BLOOD 1+ (NEGATIVE); COLOR, URINE COLORLESS (YELLOW); GLUCOSE, URINE (UA) AUTO NEGATIVE (NEGATIVE); KETONE, URINE AUTO NEGATIVE (NEGATIVE); LEUKOCYTE ESTERASE, URINE AUTO NEGATIVE (NEGATIVE); NITRITE, URINE AUTO NEGATIVE (NEGATIVE); PROTEIN, URINE AUTO NEGATIVE (NEGATIVE); RBC, URINE AUTO 1 /HPF (0-3); SPECIFIC GRAVITY URINE AUTO 1.002 (1.002-1.035); SQUAMOUS EPITHELIAL CELL UR AU 1 /HPF (0-6); UROBILINOGEN, URINE AUTO 0.2 mg/dL (0.0-2.0); WBC, URINE AUTO 0 /HPF (0-3)
[2022-10-12 14:15] LABS: BLOOD UREA NITROGEN 10 MG/DL (9-23); CARBON DIOXIDE LEVEL 30 MMOL/L (20-31); CHLORIDE LEVEL 103 MMOL/L (98-107); GLOMERULAR FILTRATION RATE > 60.0 (>45); GLUCOSE, FASTING 87 MG/DL (74-106); POTASSIUM SERUM 4.3 MMOL/L (3.5-5.1); SODIUM LEVEL 139 MMOL/L (136-145)
[2022-10-12 14:25] LABS: ANISOCYTOSIS 1+; ATYPICAL LYMPH 2 % (0-5); EOSINOPHILS 1 % (0-3); LYMPHOCYTES 31 % (16-44); MONOCYTES 6 % (0-5); NEUTROPHILS 59 % (28-66); PLATELET ESTIMATE NORMAL (NORMAL); POIKILOCYTOSIS 1+
[2022-10-12] MEDS ORDERED: FLUD0.1T PO (14:56)
[2022-10-12 15:00] VITALS: BP 116/63
== END 2022-10-12 15:07 | disposition home or self-care (01) ==
LOC: M ED 10:33
DX: I95.9 Hypotension, unspecified (principal); Z79.82 Long term (current) use of aspirin; Z79.890 Hormone replacement therapy; Z79.899 Other long term (current) drug therapy; Z88.2 Allergy status to sulfonamides; Z88.1 Allergy status to other antibiotic agents; Z88.8 Allergy status to other drugs, medicaments and biological substances; Z91.040 Latex allergy status

== ENCOUNTER → 2022-11-10 | Outpatient (CLI) | payer MEDICARE, MEDICAID ==
[~2022-11-10] MED LIST changes: +FLUD0.1T PO
== END ==
LOC: M PLAIMG 11:25
PROVIDERS: ATTEND Internal Medicine Pulmonary Disease
DX: J18.9 Pneumonia, unspecified organism (principal)

== ENCOUNTER → 2023-01-21 | Outpatient (CLI) | payer MEDICARE, MEDICAID ==
[2023-01-21 17:33] LABS: BASO # 0.1 10^3/uL (0.0-0.2); BASO % 0.6 % (0.0-1.0); EOS % 0.5 % (0.0-3.0); HEMATOCRIT 41.5 % (36.0-47.0); HEMOGLOBIN 13.4 g/dl (12.0-15.5); LYMPH # 1.7 10^3/uL (1.5-5.0); LYMPH % 19.1 % (24.0-44.0); MEAN CORPUSCULAR HEMOGLOBIN 30.5 pg (27.0-33.0); MEAN CORPUSCULAR HGB CONC 32.3 g/dl (32.0-36.5); MEAN CORPUSCULAR VOLUME 94.3 fl (80.0-96.0); MONO # 0.5 10^3/uL (0.0-0.8); MONO % 6.1 % (2.0-8.0); NEUTROPHILS # 6.5 10^3/uL (1.5-8.5); NEUTROPHILS % 73.2 % (36.0-66.0); PLATELET COUNT, AUTOMATED 247 10^3/uL (150-450); WHITE BLOOD COUNT 8.8 10^3/uL (4.0-10.0)
[2023-01-21 17:49] LABS: URIC ACID 2.8 MG/DL (3.1-7.8)
[2023-01-21 17:52] LABS: C REACTIVE PROTEIN QUANTITATIV < 0.40 MG/DL (<1.0)
[2023-01-21 17:54] LABS: RHEUMATOID FACTOR QUANT < 3.5 IU/ML (<14)
[2023-01-21 18:00] LABS: ERYTHROCYTE SEDIMENTATION RATE 12 mm/hr (0-30)
[2023-01-24 15:08] LABS: ANTINUCLEAR ANTIBODIES DIRECT Negative (Negative)
== END ==
LOC: M PLALAB 15:53
PROVIDERS: ATTEND Physician Assistant
DX: M25.571 Pain in right ankle and joints of right foot (principal)

== ENCOUNTER → 2023-04-20 | Outpatient (REF) | payer MEDICARE, MEDICAID ==
[~2023-04-20] MED LIST changes: +CLAR10CA3 PO
== END ==
LOC: M SFHCWAGY 13:34
PROVIDERS: ATTEND Nurse Practitioner Family
DX: Z12.4 Encounter for screening for malignant neoplasm of cervix (principal)

== ENCOUNTER → 2023-08-17 | Outpatient (REF) | payer MEDICARE, MEDICAID | LOC: M SFHCADAM 15:59 | PROVIDERS: ATTEND Physician Assistant | DX: R82.90 Unspecified abnormal findings in urine (principal) ==

== ENCOUNTER → 2023-12-27 | Outpatient (REF) | payer MEDICARE, MEDICAID ==
[~2023-12-27] MED LIST changes: -SALI0.6530; +SODI88SP
[2023-12-27 15:16] LABS: HEMOGLOBIN A1c 5.3 % (4.0-6.0)
== END ==
LOC: M SFHCADAM 08:16
PROVIDERS: ATTEND Family Medicine
DX: R35.89 Other polyuria (principal); L65.9 Nonscarring hair loss, unspecified; R63.1 Polydipsia; Z79.899 Other long term (current) drug therapy

== ENCOUNTER → 2023-12-29 | Outpatient (REF) | payer MEDICARE, MEDICAID ==
[2023-12-29 14:19] LABS: ALBUMIN 3.7 G/DL (3.2-5.2); ALKALINE PHOSPHATASE 59 U/L (46-116); ALT/SGPT 30 U/L (7.0-40); AST/SGOT 18 U/L (<34); BILIRUBIN,TOTAL 0.7 MG/DL (0.3-1.2); BLOOD UREA NITROGEN 11 MG/DL (9-23); CALCIUM LEVEL 8.6 MG/DL (8.3-10.6); CARBON DIOXIDE LEVEL 29 MMOL/L (20-31); CHLORIDE LEVEL 104 MMOL/L (98-107); CHOLESTEROL LEVEL 173 MG/DL (<200); CHOLESTEROL RISK RATIO 2.61 (<5); CREATININE FOR GFR 0.61 MG/DL (0.55-1.30); GLOMERULAR FILTRATION RATE > 60.0 (>45); GLUCOSE, FASTING 89 MG/DL (74-106); HDL CHOLESTEROL 66.1 MG/DL (>40); LDL CHOLESTEROL 97.7 MG/DL (<100); NON-HDL-C 106.9 MG/DL; POTASSIUM SERUM 4.4 MMOL/L (3.5-5.1); SODIUM LEVEL 139 MMOL/L (136-145); TOTAL PROTEIN 6.3 G/DL (5.7-8.2); TRIGLYCERIDES LEVEL 46 MG/DL (<150)
[2023-12-29 14:20] LABS: THYROID STIMULATING HORMONE 2.377 uIU/ML (0.55-4.78)
[2023-12-29 19:22] LABS: BASO # 0.1 10^3/uL (0.0-0.2); BASO % 0.7 % (0.0-1.0); EOS # 0.1 10^3/uL (0.0-0.5); EOS % 0.8 % (0.0-3.0); HEMATOCRIT 43.5 % (36.0-47.0); HEMOGLOBIN 14.2 g/dl (12.0-15.5); LYMPH # 2.2 10^3/uL (1.5-5.0); MEAN CORPUSCULAR HEMOGLOBIN 31.3 pg (27.0-33.0); MEAN CORPUSCULAR HGB CONC 32.6 g/dl (32.0-36.5); MEAN CORPUSCULAR VOLUME 95.8 fl (80.0-96.0); MONO # 0.5 10^3/uL (0.0-0.8); NEUTROPHILS # 5.8 10^3/uL (1.5-8.5); NEUTROPHILS % 67.2 % (36.0-66.0); PLATELET COUNT, AUTOMATED 261 10^3/uL (150-450); RED BLOOD COUNT 4.54 10^6/uL (4.00-5.40); WHITE BLOOD COUNT 8.6 10^3/uL (4.0-10.0)
== END ==
LOC: M SFHCADAM 09:44
PROVIDERS: ATTEND Family Medicine
DX: Z00.00 Encounter for general adult medical examination without abnormal findings (principal); Z79.899 Other long term (current) drug therapy

== ENCOUNTER → 2024-02-28 | Outpatient (REF) | payer MEDICARE, MEDICAID ==
[2024-02-28 18:39] LABS: APPEARANCE, URINE CLEAR (CLEAR); BACTERIA, URINE AUTO NEGATIVE (NEGATIVE); BILIRUBIN, URINE AUTO NEGATIVE (NEGATIVE); BLOOD, URINE BLOOD 1+ (NEGATIVE); COLOR, URINE YELLOW (YELLOW); GLUCOSE, URINE (UA) AUTO NEGATIVE (NEGATIVE); KETONE, URINE AUTO NEGATIVE (NEGATIVE); LEUKOCYTE ESTERASE, URINE AUTO NEGATIVE (NEGATIVE); NITRITE, URINE AUTO NEGATIVE (NEGATIVE); PROTEIN, URINE AUTO NEGATIVE (NEGATIVE); RBC, URINE AUTO 0 /HPF (0-3); SPECIFIC GRAVITY URINE AUTO 1.009 (1.002-1.035); SQUAMOUS EPITHELIAL CELL UR AU 0 /HPF (0-6); UROBILINOGEN, URINE AUTO 0.2 mg/dL (0.0-2.0); WBC, URINE AUTO 0 /HPF (0-3)
== END ==
LOC: M SFHCADAM 16:57
PROVIDERS: ATTEND Family Medicine
DX: R31.9 Hematuria, unspecified (principal)

== ENCOUNTER → 2024-03-12 | Outpatient (CLI) | payer MEDICARE, MEDICAID | LOC: M RAD 15:46 | PROVIDERS: ATTEND Family Medicine | DX: R31.9 Hematuria, unspecified (principal); R10.9 Unspecified abdominal pain ==

== ENCOUNTER 2024-04-13 09:27 | Emergency (ER) | payer MEDICARE, OTHER ==
[~2024-04-13] VITALS: Ht 157.5 cm; Wt 59.1 kg
[2024-04-13] MEDS ORDERED: KETO2SHA8 TOP (09:44)
[2024-04-13] MEDS ORDERED: KETO2CR TOP (09:44)
[2024-04-13 10:32] LABS: RSV AMPLIFICATION NEGATIVE (NEGATIVE)
[2024-04-13] MEDS ORDERED: BENZ200C70 PO (12:55)
[2024-04-13] MEDS ORDERED: ONDA-282 PO (12:55)
[2024-04-13 13:00] VITALS: BP 120/55; TEMP 99.9; O2SAT 98
== END 2024-04-13 13:24 | disposition home or self-care (01) ==
LOC: M ED 09:27
DX: U07.1 COVID-19 (principal); G47.33 Obstructive sleep apnea (adult) (pediatric); F41.9 Anxiety disorder, unspecified; F32.A Depression, unspecified; Z79.82 Long term (current) use of aspirin; Z79.899 Other long term (current) drug therapy; Z88.2 Allergy status to sulfonamides; Z88.1 Allergy status to other antibiotic agents; Z88.8 Allergy status to other drugs, medicaments and biological substances; Z91.040 Latex allergy status

== ENCOUNTER 2024-04-16 09:10 | Observation (INO) | payer MEDICARE, OTHER ==
[~2024-04-16] VITALS: Ht 157.5 cm; Wt 60.4 kg
[~2024-04-16 09:10] MED LIST changes: +BENZ200C70 PO; +KETO2CR TOP; +KETO2SHA8 TOP; +ONDA-282 PO
[2024-04-16] MEDS: NS 1,000 ML IV ONE (11:25)
[2024-04-16 11:55] LABS: BASO % 0.2 % (0.0-1.0); EOS % 0.2 % (0.0-3.0); HEMOGLOBIN 14.1 g/dl (12.0-15.5); LYMPH # 1.3 10^3/uL (1.5-5.0); LYMPH % 27.8 % (24.0-44.0); MEAN CORPUSCULAR HEMOGLOBIN 30.7 pg (27.0-33.0); MEAN CORPUSCULAR HGB CONC 32.8 g/dl (32.0-36.5); MEAN CORPUSCULAR VOLUME 93.7 fl (80.0-96.0); MONO # 0.6 10^3/uL (0.0-0.8); MONO % 13.9 % (2.0-8.0); NEUTROPHILS # 2.6 10^3/uL (1.5-8.5); NEUTROPHILS % 57.7 % (36.0-66.0); PLATELET COUNT, AUTOMATED 182 10^3/uL (150-450); RED BLOOD COUNT 4.59 10^6/uL (4.00-5.40); WHITE BLOOD COUNT 4.5 10^3/uL (4.0-10.0)
[2024-04-16 12:20] LABS: BLOOD UREA NITROGEN 10 MG/DL (9-23); CARBON DIOXIDE LEVEL 30 MMOL/L (20-31); CHLORIDE LEVEL 103 MMOL/L (98-107); CREATININE FOR GFR 0.59 MG/DL (0.55-1.30); GLOMERULAR FILTRATION RATE > 60.0 (>45); GLUCOSE, FASTING 98 MG/DL (74-106); POTASSIUM SERUM 3.7 MMOL/L (3.5-5.1); SODIUM LEVEL 137 MMOL/L (136-145)
[2024-04-16 12:22] LABS: THYROID STIMULATING HORMONE 2.351 uIU/ML (0.55-4.78)
[2024-04-16] MEDS ORDERED: ONDA-282 PO (14:55)
[2024-04-16] MEDS ORDERED: HOME MED LIST COMPLETE! XX SCH (14:55)
[2024-04-16] MEDS ORDERED: VITA200021 PO (14:55)
[2024-04-16] MEDS ORDERED: LORA-1041 PO (14:55)
[2024-04-16] MEDS: LR 1,000 ML IV SCH (19:50)
[2024-04-16] MEDS ORDERED: PROMETHAZINE 25 MG TAB PO PRN (20:00)
[2024-04-16] MEDS: ACETAMINOPHEN TAB 650MG DOSE (2X325MG) PO PRN (20:26)
[2024-04-16 21:26] LABS: CK-MB VALUE MASS < 1.0 NG/ML (<3.6)
[2024-04-16 21:28] LABS: ALBUMIN 2.9 G/DL (3.2-5.2); ALKALINE PHOSPHATASE 42 U/L (46-116); ALT/SGPT 27 U/L (7.0-40); AST/SGOT 29 U/L (<34); BILIRUBIN,DIRECT 0.1 MG/DL (<0.4); BILIRUBIN,TOTAL 0.5 MG/DL (0.3-1.2); BLOOD UREA NITROGEN 9 MG/DL (9-23); CALCIUM LEVEL 8.5 MG/DL (8.3-10.6); CARBON DIOXIDE LEVEL 28 MMOL/L (20-31); CHLORIDE LEVEL 106 MMOL/L (98-107); GLOMERULAR FILTRATION RATE > 60.0 (>45); GLUCOSE, FASTING 117 MG/DL (74-106); MAGNESIUM LEVEL 1.8 MG/DL (1.8-2.4); SODIUM LEVEL 139 MMOL/L (136-145); TOTAL PROTEIN 5.9 G/DL (5.7-8.2)
[2024-04-16 21:30] LABS: CPK CREATINE PHOSPHOKINASE 81 U/L (34-145); MB/CK RELATIVE INDEX 1.23 (< OR =4)
[2024-04-16] MEDS: REMDESIVIR 200 MG in NS 250 ML IV ONE (22:08)
[2024-04-17 05:28] LABS: HEMATOCRIT 39.3 % (36.0-47.0); HEMOGLOBIN 12.8 g/dl (12.0-15.5); MEAN CORPUSCULAR HEMOGLOBIN 30.5 pg (27.0-33.0); MEAN CORPUSCULAR HGB CONC 32.6 g/dl (32.0-36.5); MEAN CORPUSCULAR VOLUME 93.8 fl (80.0-96.0); PLATELET COUNT, AUTOMATED 156 10^3/uL (150-450); RED BLOOD COUNT 4.19 10^6/uL (4.00-5.40); WHITE BLOOD COUNT 3.3 10^3/uL (4.0-10.0)
[2024-04-17 05:49] LABS: CK-MB VALUE MASS < 1.0 NG/ML (<3.6)
[2024-04-17 05:52] LABS: ALBUMIN 2.9 G/DL (3.2-5.2); ALKALINE PHOSPHATASE 42 U/L (46-116); ALT/SGPT 28 U/L (7.0-40); AST/SGOT 18 U/L (<34); BILIRUBIN,DIRECT 0.2 MG/DL (<0.4); BILIRUBIN,TOTAL 0.4 MG/DL (0.3-1.2); BLOOD UREA NITROGEN 7 MG/DL (9-23); CALCIUM LEVEL 8.6 MG/DL (8.3-10.6); CARBON DIOXIDE LEVEL 31 MMOL/L (20-31); CHLORIDE LEVEL 106 MMOL/L (98-107); CPK CREATINE PHOSPHOKINASE 72 U/L (34-145); CREATININE FOR GFR 0.57 MG/DL (0.55-1.30); GLOMERULAR FILTRATION RATE > 60.0 (>45); GLUCOSE, FASTING 88 MG/DL (74-106); MAGNESIUM LEVEL 1.8 MG/DL (1.8-2.4); MB/CK RELATIVE INDEX 1.38 (< OR =4); SODIUM LEVEL 141 MMOL/L (136-145); TOTAL PROTEIN 5.8 G/DL (5.7-8.2)
[2024-04-17] MEDS: ENOXAPARIN 40MG/0.4ML SYRINGE (J1650 PER 10MG) SC SCH (10:36)
[2024-04-17] MEDS: ASPIRIN 81MG ENTERIC TABLET PO SCH (10:36)
[2024-04-17] MEDS ORDERED: PILL CUTTER 1 EACH XX ONE (12:02)
[2024-04-17] MEDS: FLUDROCORTISONE ACETATE 0.1 MG TAB PO SCH (12:05)
[2024-04-17 14:14] LABS: CK-MB VALUE MASS < 1.0 NG/ML (<3.6)
[2024-04-17 14:16] LABS: CPK CREATINE PHOSPHOKINASE 76 U/L (34-145); MB/CK RELATIVE INDEX 1.31 (< OR =4)
[2024-04-17] MEDS ORDERED: MIDO5TA PO (16:53)
[2024-04-17] MEDS: MIDODRINE 5 MG TAB PO SCH (17:28)
[2024-04-17 17:40] VITALS: BP 101/52; TEMP 97.1; O2SAT 96
[2024-04-17] MEDS ORDERED: REMDESIVIR 100 MG in NS 250 ML IV SCH (21:00)
== END 2024-04-17 17:02 | disposition home or self-care (01) ==
LOC: M ED 09:10 → M ED INP 09:11
PROVIDERS: ADMIT Family Medicine; ATTEND Family Medicine
DX: R55 Syncope and collapse (principal); U07.1 COVID-19; I95.9 Hypotension, unspecified; K21.9 Gastro-esophageal reflux disease without esophagitis; K44.9 Diaphragmatic hernia without obstruction or gangrene; F41.9 Anxiety disorder, unspecified; F32.A Depression, unspecified; E03.9 Hypothyroidism, unspecified; I10 Essential (primary) hypertension; G47.33 Obstructive sleep apnea (adult) (pediatric); K59.00 Constipation, unspecified; Z91.040 Latex allergy status; Z88.2 Allergy status to sulfonamides; Z88.8 Allergy status to other drugs, medicaments and biological substances; Z79.899 Other long term (current) drug therapy
CPT/HCPCS: 36415; 71045; 80047; 80048; 80076; 82550; 82553; 83735; 84443; 84484; 85025; 85027; 93005; 93041; 93306; 96361; 96365; 96372; 96375; 99285; G0378; J0248; J1100; J1650

== ENCOUNTER → 2024-04-20 | Outpatient (REF) | payer MEDICARE, OTHER ==
[~2024-04-20] MED LIST changes: +LORA-1041 PO; +VITA200021 PO
[2024-04-20 13:34] LABS: APPEARANCE, URINE CLEAR (CLEAR); BACTERIA, URINE AUTO NEGATIVE (NEGATIVE); BILIRUBIN, URINE AUTO NEGATIVE (NEGATIVE); BLOOD, URINE BLOOD 1+ (NEGATIVE); COLOR, URINE COLORLESS (YELLOW); GLUCOSE, URINE (UA) AUTO NEGATIVE (NEGATIVE); KETONE, URINE AUTO NEGATIVE (NEGATIVE); LEUKOCYTE ESTERASE, URINE AUTO NEGATIVE (NEGATIVE); NITRITE, URINE AUTO NEGATIVE (NEGATIVE); PROTEIN, URINE AUTO NEGATIVE (NEGATIVE); RBC, URINE AUTO 0 /HPF (0-3); SPECIFIC GRAVITY URINE AUTO 1.001 (1.002-1.035); SQUAMOUS EPITHELIAL CELL UR AU 0 /HPF (0-6); UROBILINOGEN, URINE AUTO 0.2 mg/dL (0.0-2.0); WBC, URINE AUTO 0 /HPF (0-3)
== END ==
LOC: M SMT 13:19
PROVIDERS: ATTEND Nurse Practitioner Family
DX: R31.0 Gross hematuria (principal)

== ENCOUNTER → 2024-05-23 | Outpatient (REF) | payer MEDICARE, OTHER ==
[2024-05-23 18:07] LABS: BLOOD UREA NITROGEN 12 MG/DL (9-23); CALCIUM LEVEL 9.6 MG/DL (8.3-10.6); CARBON DIOXIDE LEVEL 31 MMOL/L (20-31); CHLORIDE LEVEL 103 MMOL/L (98-107); CREATININE FOR GFR 0.52 MG/DL (0.55-1.30); GLOMERULAR FILTRATION RATE > 60.0 (>45); GLUCOSE, FASTING 90 MG/DL (74-106); POTASSIUM SERUM 3.7 MMOL/L (3.5-5.1); SODIUM LEVEL 141 MMOL/L (136-145)
== END ==
LOC: M SFHCADAM 17:07
PROVIDERS: ATTEND Urology
DX: R31.0 Gross hematuria (principal)

== ENCOUNTER → 2024-05-28 | Outpatient (CLI) | payer MEDICARE, OTHER ==
[~2024-05-28] MED LIST changes: +ISOVUE-370 76% 100ML VIAL ONE
== END ==
LOC: M PLAIMG 08:31
PROVIDERS: ATTEND Urology
DX: R31.0 Gross hematuria (principal); K76.89 Other specified diseases of liver
CPT/HCPCS: 74177; Q9967

== ENCOUNTER → 2024-06-16 | Outpatient (CLI) | payer MEDICARE, OTHER ==
[~2024-06-16] MED LIST changes: -ISOVUE-370 76% 100ML VIAL ONE
== END ==
LOC: M RAD 14:55
PROVIDERS: ATTEND Physician Assistant Medical
DX: R42 Dizziness and giddiness (principal); R90.89 Other abnormal findings on diagnostic imaging of central nervous system

== ENCOUNTER → 2024-07-19 | Outpatient (CLI) | payer MEDICARE, OTHER ==
[~2024-07-19] MED LIST changes: +OMEP-611 PO; -OMEP20TA2 PO
[2024-07-19 14:25] LABS: BASO % 0.5 % (0.0-1.0); EOS # 0.1 10^3/uL (0.0-0.5); EOS % 0.6 % (0.0-3.0); HEMATOCRIT 44.3 % (36.0-47.0); HEMOGLOBIN 14.2 g/dl (12.0-15.5); LYMPH # 1.8 10^3/uL (1.5-5.0); LYMPH % 22.6 % (24.0-44.0); MEAN CORPUSCULAR HEMOGLOBIN 30.5 pg (27.0-33.0); MEAN CORPUSCULAR HGB CONC 32.1 g/dl (32.0-36.5); MEAN CORPUSCULAR VOLUME 95.1 fl (80.0-96.0); MONO # 0.5 10^3/uL (0.0-0.8); MONO % 6.8 % (2.0-8.0); NEUTROPHILS # 5.5 10^3/uL (1.5-8.5); NEUTROPHILS % 69.1 % (36.0-66.0); PLATELET COUNT, AUTOMATED 243 10^3/uL (150-450); RED BLOOD COUNT 4.66 10^6/uL (4.00-5.40)
[2024-07-19 14:31] LABS: ALBUMIN 3.8 G/DL (3.2-5.2); ALKALINE PHOSPHATASE 58 U/L (35-104); ALT/SGPT 27 U/L (7.0-40); AST/SGOT 17 U/L (<34); BILIRUBIN,TOTAL 0.8 MG/DL (0.3-1.2); BLOOD UREA NITROGEN 13 MG/DL (9-23); CALCIUM LEVEL 9.3 MG/DL (8.3-10.6); CARBON DIOXIDE LEVEL 30 MMOL/L (20-31); CHLORIDE LEVEL 103 MMOL/L (98-107); CREATININE FOR GFR 0.61 MG/DL (0.55-1.30); GLOMERULAR FILTRATION RATE > 60.0 (>45); GLUCOSE, FASTING 99 MG/DL (74-106); POTASSIUM SERUM 4.1 MMOL/L (3.5-5.1); RHEUMATOID FACTOR QUANT < 3.5 IU/ML (<14); SODIUM LEVEL 141 MMOL/L (136-145)
[2024-07-19 14:33] LABS: ERYTHROCYTE SEDIMENTATION RATE 14 mm/hr (0-30); FREE THYROXINE INDEX 3.8 % (1.3-4.8); T UPTAKE 35.6 % (22.5-37.0); THYROID STIMULATING HORMONE 1.454 uIU/ML (0.55-4.78); THYROXINE (T4) 10.8 UG/DL (4.5-10.9); VITAMIN B12 LEVEL 438 PG/ML (211-911)
[2024-07-19 14:36] LABS: CPK CREATINE PHOSPHOKINASE 53 U/L (34-145); FOLATE 18.93 NG/ML (>5.4)
[2024-07-19 14:47] LABS: HEMOGLOBIN A1c 5.1 % (4.0-6.0)
[2024-07-20 07:07] LABS: T P ELECTROPHORESIS SO 6.7 g/dL (6.1-8.1)
[2024-07-20 14:08] LABS: ANA SCREEN, IFA NEGATIVE (NEGATIVE)
[2024-07-20 17:17] LABS: ALDOLASE 6.5 U/L (< OR = 8.1)
== END ==
LOC: M PLALAB 10:26
PROVIDERS: ATTEND Psychiatry & Neurology Neurology
DX: R53.83 Other fatigue (principal); R42 Dizziness and giddiness; E07.9 Disorder of thyroid, unspecified; E11.9 Type 2 diabetes mellitus without complications

== ENCOUNTER → 2024-09-25 | Outpatient (CLI) | payer MEDICARE, OTHER ==
[~2024-09-25] MED LIST changes: +DIPH-435 PO; +ESTR0.1C5 VG; +FLUT15.820; +MECL-86 PO; +MELA3TAB30 PO
[2024-09-25 20:11] LABS: BASO % 0.5 % (0.0-1.0); EOS # 0.1 10^3/uL (0.0-0.5); EOS % 0.8 % (0.0-3.0); HEMATOCRIT 46.2 % (36.0-47.0); HEMOGLOBIN 15.3 g/dl (12.0-15.5); LYMPH # 1.8 10^3/uL (1.5-5.0); LYMPH % 20.6 % (24.0-44.0); MEAN CORPUSCULAR HEMOGLOBIN 31.4 pg (27.0-33.0); MEAN CORPUSCULAR HGB CONC 33.1 g/dl (32.0-36.5); MEAN CORPUSCULAR VOLUME 94.7 fl (80.0-96.0); MONO # 0.7 10^3/uL (0.0-0.8); MONO % 7.4 % (2.0-8.0); NEUTROPHILS # 6.2 10^3/uL (1.5-8.5); NEUTROPHILS % 70.1 % (36.0-66.0); PLATELET COUNT, AUTOMATED 254 10^3/uL (150-450); RED BLOOD COUNT 4.88 10^6/uL (4.00-5.40); WHITE BLOOD COUNT 8.8 10^3/uL (4.0-10.0)
[2024-09-25 20:40] LABS: BLOOD UREA NITROGEN 12 MG/DL (9-23); CALCIUM LEVEL 8.6 MG/DL (8.3-10.6); CARBON DIOXIDE LEVEL 29 MMOL/L (20-31); CHLORIDE LEVEL 102 MMOL/L (98-107); CREATININE FOR GFR 0.51 MG/DL (0.55-1.30); GLOMERULAR FILTRATION RATE > 60.0 (>45); GLUCOSE, FASTING 71 MG/DL (74-106); SODIUM LEVEL 141 MMOL/L (136-145)
== END ==
LOC: M PLALAB 15:19
PROVIDERS: ATTEND Internal Medicine Cardiovascular Disease
DX: I48.0 Paroxysmal atrial fibrillation (principal); I50.9 Heart failure, unspecified

== ENCOUNTER 2024-10-29 06:41 | Day surgery (SDC) | payer MEDICARE, OTHER ==
[~2024-10-29] VITALS: Ht 157.5 cm; Wt 63.9 kg
[~2024-10-29 06:41] MED LIST changes: +METRCRM EXT
[2024-10-29] MEDS ORDERED: propofoL 200 MG/20 ML VIAL As Ordered ONE (07:30)
[2024-10-29 07:50] VITALS: TEMP 97.1
[2024-10-29 08:07] VITALS: BP 120/72; O2SAT 97
== END 2024-10-29 08:14 | disposition home or self-care (01) ==
LOC: M OPP 06:41
PROVIDERS: ATTEND Internal Medicine Gastroenterology
DX: Z12.11 Encounter for screening for malignant neoplasm of colon (principal); K64.0 First degree hemorrhoids; K57.30 Diverticulosis of large intestine without perforation or abscess without bleeding; F41.9 Anxiety disorder, unspecified; F32.A Depression, unspecified; G43.909 Migraine, unspecified, not intractable, without status migrainosus; G47.33 Obstructive sleep apnea (adult) (pediatric); Z99.89 Dependence on other enabling machines and devices; Z95.0 Presence of cardiac pacemaker; Z88.2 Allergy status to sulfonamides; Z88.8 Allergy status to other drugs, medicaments and biological substances; Z91.040 Latex allergy status; Z79.51 Long term (current) use of inhaled steroids; Z79.82 Long term (current) use of aspirin; Z79.899 Other long term (current) drug therapy

== ENCOUNTER → 2024-11-12 | Outpatient (CLI) | payer MEDICARE, OTHER ==
[~2024-11-12] MED LIST changes: +KETO120S5 TOP; -KETO2SHA8 TOP
== END ==
LOC: M PLALAB 14:42
PROVIDERS: ATTEND Student in an Organized Health Care Education/Training Program
DX: R31.0 Gross hematuria (principal)

== ENCOUNTER → 2024-11-14 | Outpatient (CLI) | payer MEDICARE, OTHER | LOC: M PLAIMG 15:12 | PROVIDERS: ATTEND Family Medicine | DX: R29.898 Other symptoms and signs involving the musculoskeletal system (principal); M47.817 Spondylosis without myelopathy or radiculopathy, lumbosacral region; M85.88 Other specified disorders of bone density and structure, other site ==

== ENCOUNTER → 2024-11-15 | Outpatient (CLI) | payer MEDICARE, OTHER ==
[2024-11-15 14:18] LABS: BASO # 0.1 10^3/uL (0.0-0.2); BASO % 0.4 % (0.0-1.0); EOS % 0.4 % (0.0-3.0); HEMATOCRIT 44.4 % (36.0-47.0); HEMOGLOBIN 14.2 g/dl (12.0-15.5); LYMPH # 2.3 10^3/uL (1.5-5.0); LYMPH % 20.5 % (24.0-44.0); MEAN CORPUSCULAR HEMOGLOBIN 31.3 pg (27.0-33.0); MONO # 0.8 10^3/uL (0.0-0.8); MONO % 6.8 % (2.0-8.0); NEUTROPHILS # 8.1 10^3/uL (1.5-8.5); NEUTROPHILS % 71.5 % (36.0-66.0); PLATELET COUNT, AUTOMATED 259 10^3/uL (150-450); RED BLOOD COUNT 4.53 10^6/uL (4.00-5.40); WHITE BLOOD COUNT 11.4 10^3/uL (4.0-10.0)
[2024-11-15 14:29] LABS: ALBUMIN 3.7 G/DL (3.2-5.2); ALKALINE PHOSPHATASE 60 U/L (35-104); ALT/SGPT 26 U/L (7.0-40); AST/SGOT 15 U/L (<34); BILIRUBIN,TOTAL 0.7 MG/DL (0.3-1.2); BLOOD UREA NITROGEN 10 MG/DL (9-23); CALCIUM LEVEL 9.3 MG/DL (8.3-10.6); CARBON DIOXIDE LEVEL 31 MMOL/L (20-31); CHLORIDE LEVEL 103 MMOL/L (98-107); CHOLESTEROL LEVEL 202 MG/DL (<200); CHOLESTEROL RISK RATIO 2.59 (<5); CREATININE FOR GFR 0.59 MG/DL (0.55-1.30); FREE T4 1.33 NG/DL (0.89-1.76); GLOMERULAR FILTRATION RATE > 90.0 (>45); GLUCOSE, FASTING 84 MG/DL (74-106); HDL CHOLESTEROL 77.9 MG/DL (>40); LDL CHOLESTEROL 112.5 MG/DL (<100); NON-HDL-C 124.1 MG/DL; POTASSIUM SERUM 3.8 MMOL/L (3.5-5.1); SODIUM LEVEL 141 MMOL/L (136-145); THYROID STIMULATING HORMONE 1.187 uIU/ML (0.55-4.78); TOTAL PROTEIN 6.6 G/DL (5.7-8.2); TRIGLYCERIDES LEVEL 58 MG/DL (<150)
== END ==
LOC: M PLALAB 09:47
PROVIDERS: ATTEND Family Medicine
DX: Z00.00 Encounter for general adult medical examination without abnormal findings (principal); R29.898 Other symptoms and signs involving the musculoskeletal system